=== PATIENT | male | born 1960 | race American Indian/Alaskan Native ===

== ENCOUNTER 2017-01-29 10:38 | Day surgery (SDC) | payer OTHER ==
[2017-01-29 11:03] VITALS: RESP 23
[2017-01-29 11:15] VITALS: BMI 24.9
[2017-01-29] MEDS ORDERED: Indomethacin 50 MG Suppository PR ONE (13:46)
[2017-01-29] MEDS ORDERED: Iohexol 240 (50 ml) ONE (13:47)
[2017-01-29] MEDS ORDERED: Midazolam 2 MG/2 ML VIAL ONE (14:15)
[2017-01-29] MEDS ORDERED: Propofol 10 mg/ml Inj (20 ML) ONE ×2 (14:15→14:44)
[2017-01-29] MEDS ORDERED: Desflurane Inhalation Anesthetic Liq (240 ml) ONE (14:51)
[2017-01-29] MEDS ORDERED: cefTRIAXone (Rocephin) 1 gm Inj ONE (14:53)
[2017-01-29] MEDS ORDERED: Glucagon Recombinant 1 mg Inj ONE (15:11)
[2017-01-29] MEDS ORDERED: Lactated Ringer's 1,000 ML IV SCH (16:00)
[2017-01-29 16:02] VITALS: TEMP 98.4
[2017-01-29 16:52] VITALS: PULSE 66
[2017-01-29 17:07] VITALS: BP 174/90; O2SAT 98
--- NOTE | 2017-01-30 11:15 | RAD ---
PROCEDURE: ERCP. HISTORY: ? CBD OBST COMPARISON: None TECHNIQUE: Standard protocol for this study/examination. FINDINGS: Submitted images from the current procedure: 6.0. IMPRESSION: Total fluoroscopic time (continuous mode) utilized during the procedure: 3 minutes 43 seconds.
== END 2017-01-29 17:46 | disposition home or self-care (01) ==
LOC: ENDO 10:38
PROVIDERS: ATTEND Internal Medicine
DX: K85.91 Acute pancreatitis with uninfected necrosis, unspecified (principal); K83.1 Obstruction of bile duct; K29.50 Unspecified chronic gastritis without bleeding; K29.80 Duodenitis without bleeding
CPT/HCPCS: 43239; 43242; 43274 ×2; 43277; 74330; 88173; 88305; 88342; C1876; C2625 ×2; J0696; J1610; J2250; J2704; J3010; J7040; J7120; Q9966

== ENCOUNTER 2017-03-04 13:18 | Inpatient (IN) | payer BC ==
[2017-03-04 13:27] VITALS: BMI 25.5
[2017-03-04] MEDS ORDERED: Piperacill/Tazo 4.5gm in NS 4.5 GM/100 ML BAG IVPB STA (14:05)
--- NOTE | 2017-03-04 14:05 | ED PDOC ---
Arrival/HPI - General Chief Complaint: Abdominal Pain Time Seen by Provider: 03/04/17 14:02 Historian: Patient - History of Present Illness Narrative History of Present Illness (Text): 03/04/17 13:53 Gato Osborne is a 56 year old male complaining of fevers and generalized weakness for 2-3 days. Patient notes that he also experiences abdominal discomfort and yellowing of his skin beginning this week. Patient denies any other complaint at this time. 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 Time/Duration: < week Symptom Onset: Gradual Symptom Course: Unchanged Activities at Onset: Light Context: Home Past Medical History - Provider Review Nursing Documentation Reviewed: Yes - Cardiac Hx Pacemaker: No - Pulmonary Hx Respiratory Disorders: No - Neurological Hx Paralysis: No - HEENT Hx HEENT Disorder: No - Renal Hx Renal Disorder: No - Endocrine/Metabolic Hx Endocrine Disorders: No - Hematological/Oncological Hx Blood Transfusions: No - Integumentary Hx Dermatological Disorder: No - Musculoskeletal/Rheumatological Hx Musculoskeletal Disorders: No - Genitourinary/Gynecological Hx Genitourinary Disorders: No - Psychiatric Hx Emotional Abuse: No Hx Physical Abuse: No Hx Substance Use: No - Anesthesia Hx Anesthesia Reactions: No Hx Malignant Hyperthermia: No - Suicidal Assessment Feels Threatened In Home Enviroment: No Family/Social History - Physician Review Nursing Documentation Reviewed: Yes Family/Social History: No Known Family HX Smoking Status: Former Smoker Hx Alcohol Use: Yes (STOPPED DRINKING 25 YEARS AGO) Hx Substance Use: No Allergies/Home Meds Allergies/Adverse Reactions: Allergies No Known Allergies Allergy (Verified 03/04/17 13:28) Home Medications: Home Meds Medication Instructions Recorded Confirmed No Known Home Med 01/24/17 01/24/17 Physical Exam - Physical Exam Narrative Physical Exam (Text): - Review of Systems Constitutional: Normal. absent: Fatigue, Weight Change, Fevers Eyes: icteric sclera ENT: Normal Respiratory: Normal absent: SOB, Cough, Sputum Cardiovascular: Normal absent: Chest pain, Palpitations, Syncope Gastrointestinal: Normal absent: Abdominal pain, Diarrhea, Nausea, Vomiting Genitourinary: Normal. absent: Dysuria, Frequency, Hematuria Musculoskeletal: Normal. absent: Arthralgias, Back Pain, Neck Pain Skin: jaundice Neurological: Normal absent: Focal Weakness Endocrine: Normal Hemo/Lymphatic: Normal Psychiatric: Normal - Physical exam Patient appears age appropriate, speaking full sentences without difficulty Patient is febrile. - Systems Exam Head: Present: Atraumatic, Normocephalic Pupils: Present: PERRL Extraocular Muscles: Present: EOMI Conjunctiva: Icteric sclera Mouth: Present: Moist Mucous Membranes Neck: Present: Normal Range of Motion. No: MIDLINE TENDERNESS, Paraspinal Tenderness Respiratory/Chest: Present: Clear to Auscultation, Good Air Exchange. No: Respiratory Distress, Accessory Muscle Use, Tachypnic Cardiovascular: Present: Regular Rate and Rhythm, Normal S1, S2, Peripheral Pulses Present. No: Murmurs Abdomen: Present: Normal Bowel Sounds, No: Tenderness, Peritoneal Signs, Rebound, Guarding, Distention Back: Present: Normal Inspection. No: Midline Tenderness, Paraspinal Tenderness Upper Extremity: Present: Normal Inspection. No: Cyanosis, Edema Lower Extremity: Present: Normal Inspection. No: Edema Neurological: Present: GCS=15, Speech Normal, cranial nerves II through XII fully intact with no cerebellar abnormality, neuro-sensory fully intact. No focal neurological deficits. Skin: Slightly jaundice. No: Rashes Lymphatic: Present: OX3, NI, NC Psychiatric: Present: Alert, Oriented x 3, Normal Insight, Normal Concentration Vital Signs Reviewed: Yes Vital Signs Temp Pulse Resp BP Pulse Ox 03/04/17 15:34 115 H 18 125/78 95 03/04/17 13:19 102.9 F H 128 H 18 121/73 95 Temperature: Febrile Blood Pressure: Normal Pulse: Tachycardic Respiratory Rate: Normal Appearance: Positive for: Well-Appearing, Non-Toxic, Comfortable Pain Distress: None Mental Status: Positive for: Alert and Oriented X 3 Medical Decision Making ED Course and Treatment: 03/04/17 14:21 Impression: 56 year old male complaining of fevers and weakness with associated abdominal discomfort and slight jaundice for 2-3 days. Pt with a hx of pancreatic CA dw Dr. Lu, states pt going for procedure tomorrow and to admit Plan: -- EKG -- Chest X-ray -- VBG, Blood Culture -- Urinalysis, Urine Culture -- Labs -- Motrin, Zosyn, and IV Fluids -- Reassess and disposition Progress Notes: 03/04/17 14:[address] Garcia who states to admit patient to hospitalist service. 03/04/17 15:[address] Putnam, who accepts patient for admission to his service. 03/04/17 15:09 Chest X-ray: Creator : Stan Roberts MD IMPRESSION: No active disease. 03/04/17 16:42 pt in no distress, aware of admission plan denies complaints - Lab Interpretations Lab Results: 03/04/17 14:35 03/04/17 14:35 Lab Results 03/04/17 15:56: Urine Color Dark yellow, Urine Appearance Clear, Urine pH 6.5, Ur Specific [place] <= 1.005, Urine Protein 30 H, Urine Glucose (UA) Negative, Urine Ketones Negative, Urine Blood Small H, Urine Nitrate Negative, Urine Bilirubin Large H, Urine Urobilinogen 0.2, Ur Leukocyte Esterase Negative, Urine RBC Pending, Urine WBC Pending 03/04/17 14:35: Sodium 124 L, Chloride 86 L, Potassium 3.3 L, Carbon Dioxide 29 , Anion Gap 12, BUN 16, Creatinine 0.9, Est GFR ( Amer) > 60, Est GFR ( Non-Af Amer) > 60, Random Glucose 116 H, Calcium 9.0, Phosphorus 1.8 L, Magnesium 2.0, Total Bilirubin 16.1 H, AST 111 H, ALT 105 H, Alkaline Phosphatase 503 H, Total Protein 7.6, Albumin 3.2, Globulin 4.4, Albumin/ Globulin Ratio 0.7 L 03/04/17 14:35: pO2 202 H, VBG pH 7.55 H, VBG pCO2 35.0 L, VBG HCO3 30.6 H, VBG Total CO2 31.7 H, VBG O2 Sat (Calc) 100.8 H, VBG Base Excess 7.9 H, VBG Potassium 3.3 L, Sodium 124.0 L, Chloride 91.0 L, Glucose 118 H, Lactate 1.4, FiO2 21.0, Venous Blood Potassium 3.3 L 03/04/17 14:35: PT 17.1 H, INR 1.58 H, APTT 43.5 H 03/04/17 14:35: WBC 22.7 H, RBC 3.85, Hgb 11.4 L, Hct 31.6 L, MCV 82.1, MCH 29.6 , MCHC 36.1, RDW 14.4, Plt Count 336, MPV 10.4, Gran % 88.8 H, Lymph % (Auto) 4.6 L, [place] % (Auto) 6.6 H, Eos % (Auto) 0.0 L, Baso % (Auto) 0.0, Gran # 20.16 H, Lymph # 1.0 L, [place] # 1.5 H, Eos # 0.0, Baso # 0.01 I have reviewed the lab results: Yes - RAD Interpretation Radiology Orders: 03/04/17 14:05 CHEST PORTABLE [RAD] Stat 03/04/17 14:36 PANCREATIC PROTOCOL [CT] Routine 03/05/17 07:00 CHEST W/CONTRAST [CT] Routine - Medication Orders Current Medication Orders: Enoxaparin Sodium (Lovenox) 40 mg SC DAILY [facility]ENNY PRN Reason: Protocol Piperacillin Sod/Tazobactam Sod (Zosyn 3.375 In Ns 100ml) 100 mls @ 200 mls/hr IVPB Q6 [facility]NY PRN Reason: Protocol Stop: 03/05/17 00:29 Sodium Chloride (Sodium Chloride 0.9%) 1,000 mls @ 125 mls/hr IV .Q8H [facility]ENNY Potassium Phosphate 15 mmole/ (Sodium Chloride) 255 mls @ 42.5 mls/hr IVPB ONCE ONE Stop: 03/04/17 22:11 Ibuprofen (Motrin Tab) 600 mg PO Q6 PRN PRN Reason: Pain, moderate (4-7) Pantoprazole Sodium (Protonix Inj) 40 mg IVP DAILY [facility] Phytonadione (Vitamin K Tab) 5 mg PO DAILY [facility] Last Admin: 03/04/17 16:19 Dose: 5 mg Discontinued Medications Sodium Chloride 2,500 ml/ IV (SUPPLIES) 2,500 mls @ 4,708.26 mls/hr IV ONCE ONE PRN Reason: 60 ML/KG/HR Stop: 03/04/17 14:06 Last Admin: 03/04/17 14:38 Dose: 4,708.26 mls/hr Piperacillin Sod/Tazobactam Sod (Zosyn 4.5 Gm In Ns 100ml) 4.5 gm in 100 mls @ 200 mls/hr IVPB STAT STA PRN Reason: Protocol Stop: 03/04/17 14:34 Last Admin: 03/04/17 14:48 Dose: 200 mls/hr Ibuprofen (Motrin Tab) 600 mg PO STAT STA Stop: 03/04/17 14:09 Last Admin: 03/04/17 16:19 Dose: 600 mg Iohexol (Omnipaque 350 150 Ml) Confirm Administered Dose 150 ml .ROUTE .STK-MED ONE Stop: 03/04/17 14:45 Iohexol (Omnipaque 240 (50 Ml)) Confirm Administered Dose 50 ml .ROUTE .STK-MED ONE Stop: 03/04/17 14:49 Potassium Chloride (K-Dur 20 Meq Er Tab) 20 meq PO STAT STA Stop: 03/04/17 16:15 - Scribe Statement The provider has reviewed the documentation as recorded by the Rosa Monet Provider Scribe Attestation: All medical record entries made by the Rosa were at my direction and personally dictated by me. I have reviewed the chart and agree that the record accurately reflects my personal performance of the history, physical exam, medical decision making, and the department course for this patient. I have also personally directed, reviewed, and agree with the discharge instructions and disposition. Disposition/Present on Arrival - Present on Arrival Any Indicators Present on Arrival: No History of DVT/PE: No History of Uncontrolled Diabetes: No Urinary Catheter: No History of Decub. Ulcer: No History Surgical Site Infection Following: None - Disposition Have Diagnosis and Disposition been Completed?: Yes Diagnosis: Leucocytosis, Jaundice Disposition: HOSPITALIZED Disposition Time: 16:49 Patient Plan: Admission Condition: FAIR
[2017-03-04 14:47] LABS: ADD MANUAL DIFF? NO
[2017-03-04] MEDS ORDERED: Iohexol 240 (50 ml) ONE (14:48)
[2017-03-04 14:52] LABS: BASO # 0.01 K/mm3 (0.0-2.0); GRAN # 20.16 (1.4-6.5); GRAN % 88.8 % (50.0-68.0); HEMATOCRIT 31.6 % (42.0-52.0); LYMPH % 4.6 % (22.0-35.0); MEAN CELL VOLUME 82.1 fL (80.0-105.0); MEAN CORPUSCULAR HEMOGLOBIN 29.6 pg (25.0-35.0); MEAN CORPUSCULAR HGB CONC 36.1 g/dl (31.0-37.0); MEAN PLATELET VOLUME 10.4 fl (7.0-11.0); MONO # 1.5 (0.1-0.6); MONO % 6.6 % (1.0-6.0); PLATELET COUNT 336 10^3/uL (120.0-450.0); RED CELL DISTRIBUTION WIDTH 14.4 % (11.5-14.5); WHITE BLOOD COUNT 22.7 10^3/ul (4.5-11.0)
[2017-03-04 14:54] LABS: VENOUS BLOOD GAS BASE EXCESS 7.9 mmol/L (0.0-2.0); VENOUS BLOOD PH 7.55 (7.32-7.43)
[2017-03-04 15:01] LABS: ALB/GLOB RATIO 0.7 (1.1-1.8); ALKALINE PHOSPHATASE 503 U/L (38-133); ALT/SGPT 105 U/L (7-56); AST/SGOT 111 U/L (15-59); BILIRUBIN,TOTAL 16.1 mg/dL (0.2-1.3); BLOOD UREA NITROGEN 16 mg/dL (7-21); CARBON DIOXIDE 29 mmol/L (21-33); CHLORIDE 86 mmol/L (98-107); GFR AFRICAN-AMERICAN > 60; GLUCOSE,RANDOM 116 mg/dL (70-110); PHOSPHOROUS 1.8 mg/dL (2.5-4.5); POTASSIUM 3.3 mmol/L (3.6-5.0); SODIUM 124 mmol/L (132-148); TOTAL PROTEIN 7.6 g/dL (5.8-8.3)
--- NOTE | 2017-03-04 15:01 | RAD ---
HISTORY: Sepsis Patient COMPARISON: No prior. FINDINGS: LUNGS: No active pulmonary disease. PLEURA: No significant pleural effusion identified, no pneumothorax apparent. CARDIOVASCULAR: Normal. OSSEOUS STRUCTURES: No significant abnormalities. VISUALIZED UPPER ABDOMEN: Normal. OTHER FINDINGS: None. IMPRESSION: No active disease.
[2017-03-04 15:02] LABS: INR 1.58 (0.93-1.08); PARTIAL THROMBOPLASTIN TIME 43.5 Seconds (23.7-30.8)
[2017-03-04] MEDS ORDERED: Potassium Phosphate 15 MMOLE in Sodium Chloride 0.9% 250 ML IVPB ONE (16:12)
[2017-03-04] MEDS ORDERED: Potassium Chloride 20 mEq ER Tab PO STA (16:14)
[2017-03-04 16:23] LABS: PH,URINE 6.5 (4.7-8.0); URINE APPEARANCE CLEAR (CLEAR); URINE BILIRUBIN LARGE (NEGATIVE); URINE BLOOD SMALL (NEGATIVE); URINE GLUCOSE (UA) NEGATIVE (NEGATIVE); URINE KETONE NEGATIVE (NEGATIVE); URINE LEUKOCYTE ESTERASE NEGATIVE Leu/uL (NEGATIVE); URINE PROTEIN 30 mg/dL (<30 mg/dL); URINE UROBILINOGEN 0.2 E.U./dL (<1 E.U./dL)
[2017-03-04 16:24] LABS: URINE COLOR DARK YELLOW (YELLOW)
--- NOTE | 2017-03-04 16:24 | CP.PCM.HP ---
<Madhu Peng - Last Filed: 03/04/17 18:24> History of Present Illness - History of Present Illness History of Present Illness: 56M presents to the ED after abnormal laboratory results and complaints of jaundice. Patient has a known history of pancreatic adenocarcinoma. The patient had outpatient work up on 03/03/17 which demonstrated leukocytosis (20K), hyperbilirubinemia of 14.9. Patient was referred to hospital ED for further evaluation. Patient denies any significant PMHx prior to being diagnosed w/ pancreatic CA. Patient was found to have a cystic lesion in the head of the pancreas. An EUS and FNA were done on the lesion. Patient was diagnosed with pancreatic adenocarcinoma. During the admission in January patient had an ERCP w / biliary stent placement. Patient reports his symptoms improved after having the ERCP . However, about two weeks ago patient reported eating steak which made him nauseous and he had a bout of emesis. As per patient, ever since then he has experienced abdominal pain and worsening jaundice. At time of examination patient reports feeling chills at home. Denies headaches, cough, n/ v, dysuria. Reports abdominal discomfort. PMHx: Pancreatic adenocarcinoma PSHx: none FHx: Father - colon CA Social: Quit smoking 3 months ago, ~20 pack years; denies EtOH or illicit drug use Present on Admission - Present on Admission Any Indicators Present on Admission: No Review of Systems - Review of Systems Review of Systems: 12 pt ROS carried out, unremarkable; except as stated in HPI Past Patient History - Past Medical History & Family History Past Medical History?: No - Past Social History Smoking Status: Former Smoker - CARDIAC Hx Pacemaker: No - PULMONARY Hx Respiratory Disorders: No - NEUROLOGICAL Hx Paralysis: No - HEENT Hx HEENT Problems: No - RENAL Hx Chronic Kidney Disease: No - ENDOCRINE/METABOLIC Hx Endocrine Disorders: No - HEMATOLOGICAL/ONCOLOGICAL Hx Blood Transfusions: No - INTEGUMENTARY Hx Dermatological Problems: No - MUSCULOSKELETAL/RHEUMATOLOGICAL Hx Musculoskeletal Disorders: No - GENITOURINARY/GYNECOLOGICAL Hx Genitourinary Disorders: No - PSYCHIATRIC Hx Emotional Abuse: No Hx Physical Abuse: No Hx Substance Use: No - SURGICAL HISTORY Hx Surgeries: No - ANESTHESIA Hx Anesthesia Reactions: No Hx Malignant Hyperthermia: No Meds Allergies/Adverse Reactions: Allergies Allergy/AdvReac Type Severity Reaction Status Date / Time No Known Allergies Allergy Verified 03/04/17 13:28 Physical Exam - Constitutional Appears: No Acute Distress - Head Exam Head Exam: NORMOCEPHALIC - Eye Exam Eye Exam: Scleral icterus - ENT Exam Additional comments: mucous membranes: jaundiced - Respiratory Exam Respiratory Exam: NORMAL BREATHING PATTERN - Cardiovascular Exam Cardiovascular Exam: Tachycardia, +S1, +S2 - GI/Abdominal Exam GI & Abdominal Exam: Soft. absent: Distended, Guarding, Tenderness - Extremities Exam Extremities exam: Negative for: calf tenderness, pedal edema - Neurological Exam Neurological exam: Alert, Oriented x3 - Psychiatric Exam Psychiatric exam: Normal Mood - Skin Skin Exam: Dry, Intact, Warm Results - Vital Signs Recent Vital Signs: Last Vital Signs Temp 102.9 F H 03/04/17 13:19 Pulse 115 H 03/04/17 15:34 Resp 18 03/04/17 15:34 BP 125/78 03/04/17 15:34 Pulse Ox 95 03/04/17 15:34 - Labs Result Diagrams: 03/04/17 14:35 03/04/17 14:35 Labs: Laboratory Results - last 24 hr 03/04/17 03/04/17 03/04/17 14:35 14:35 14:35 WBC 22.7 H RBC 3.85 Hgb 11.4 L Hct 31.6 L MCV 82.1 MCH 29.6 MCHC 36.1 RDW 14.4 Plt Count 336 MPV 10.4 Gran % 88.8 H Lymph % (Auto) 4.6 L [place] % (Auto) 6.6 H Eos % (Auto) 0.0 L Baso % (Auto) 0.0 Gran # 20.16 H Lymph # 1.0 L [place] # 1.5 H Eos # 0.0 Baso # 0.01 PT 17.1 H INR 1.58 H APTT 43.5 H pO2 202 H VBG pH 7.55 H VBG pCO2 35.0 L VBG HCO3 30.6 H VBG Total CO2 31.7 H VBG O2 Sat (Calc) 100.8 H VBG Base Excess 7.9 H VBG Potassium 3.3 L Sodium 124.0 L Chloride 91.0 L Glucose 118 H Lactate 1.4 FiO2 21.0 Potassium Carbon Dioxide Anion Gap BUN Creatinine Est GFR ( Amer) Est GFR (Non-Af Amer) Random Glucose Calcium Phosphorus Magnesium Total Bilirubin AST ALT Alkaline Phosphatase Total Protein Albumin Globulin Albumin/Globulin Ratio Venous Blood Potassium 3.3 L 03/04/17 14:35 WBC RBC Hgb Hct MCV MCH MCHC RDW Plt Count MPV Gran % Lymph % (Auto) [place] % (Auto) Eos % (Auto) Baso % (Auto) Gran # Lymph # [place] # Eos # Baso # PT INR APTT pO2 VBG pH VBG pCO2 VBG HCO3 VBG Total CO2 VBG O2 Sat (Calc) VBG Base Excess VBG Potassium Sodium 124 L Chloride 86 L Glucose Lactate FiO2 Potassium 3.3 L Carbon Dioxide 29 Anion Gap 12 BUN 16 Creatinine 0.9 Est GFR ( Amer) > 60 Est GFR (Non-Af Amer) > 60 Random Glucose 116 H Calcium 9.0 Phosphorus 1.8 L Magnesium 2.0 Total Bilirubin 16.1 H AST 111 H ALT 105 H Alkaline Phosphatase 503 H Total Protein 7.6 Albumin 3.2 Globulin 4.4 Albumin/Globulin Ratio 0.7 L Venous Blood Potassium Assessment & Plan - Assessment and Plan (Free Text) Assessment: 56 M with h/o pancreatitis, pancreatic adenoCA s/p ERCP with stent placement admitted with fever, chills, weakness, & recurrent jaundice Plan: Obstructive Jaundrice, suspect acute cholangitis -IV Zosyn Q6H -NPO after midnight -GI consult, recs appreciated -ERCP planned for tomorrow AM -F/u pancreatic protocol CT -F/u Blood cultures -F/u Urine cx -F/u AM labs, CBC & CMP Pancreatic CA -Biopsy: AdenoCA -CT Chest w/ contrast; CA staging -Heme/Onc Consulted; recs appreciated Hyponatremia -F/u UA, urine osmolality, urine sodium -NS @ 125mls/hr -F/u TSH Hypokalemia -Replete prn -Kdur 20meq hypophosphatemia - KPhos 15mmol -replete prn -F/u Mg in AM Elevated INR -Vit K DVT ppx/ GI ppx -Lovenox -Protonix Assessment and Plan discussed w/ attending <Deisi BARRON,Sheila - Last Filed: 03/05/17 08:04> Results - Vital Signs Recent Vital Signs: Last Vital Signs Temp 98.2 F 03/05/17 05:38 Pulse 78 03/05/17 05:38 Resp 20 03/05/17 05:38 BP 103/69 05/17/17 05:38 Pulse Ox 98 03/05/17 05:38 - Labs Result Diagrams: 03/04/17 14:35 03/04/17 14:35 Labs: Laboratory Results - last 24 hr 03/04/17 03/04/17 03/04/17 15:56 17:30 17:30 PT INR Magnesium Lipase 717 H TSH 3rd Generation 0.11 L Urine Color Dark yellow Urine Appearance Clear Urine pH 6.5 Ur Specific [place] <= 1.005 Urine Protein 30 H Urine Glucose (UA) Negative Urine Ketones Negative Urine Blood Small H Urine Nitrate Negative Urine Bilirubin Large H Urine Urobilinogen 0.2 Ur Leukocyte Esterase Negative Urine RBC 0 - 2 Urine WBC Negative Ur Epithelial Cells 0 - 2 Urine Bacteria Neg Urine Osmolality Ur Random Sodium Ur Random Potassium 03/04/17 03/04/17 03/05/17 17:40 18:30 05:15 PT INR Magnesium Lipase TSH 3rd Generation 0.12 L Urine Color Urine Appearance Urine pH Ur Specific [place] Urine Protein Urine Glucose (UA) Urine Ketones Urine Blood Urine Nitrate Urine Bilirubin Urine Urobilinogen Ur Leukocyte Esterase Urine RBC Urine WBC Ur Epithelial Cells Urine Bacteria Urine Osmolality 190 Ur Random Sodium 30 Ur Random Potassium 5.6 03/05/17 03/05/17 05:15 05:15 PT 16.1 H INR 1.49 H Magnesium 2.5 H Lipase TSH 3rd Generation Urine Color Urine Appearance Urine pH Ur Specific [place] Urine Protein Urine Glucose (UA) Urine Ketones Urine Blood Urine Nitrate Urine Bilirubin Urine Urobilinogen Ur Leukocyte Esterase Urine RBC Urine WBC Ur Epithelial Cells Urine Bacteria Urine Osmolality Ur Random Sodium Ur Random Potassium Attending/Attestation - Attestation I have personally seen and examined this patient.: Yes I have fully participated in the care of the patient.: Yes I have reviewed all pertinent clinical information: Yes Notes (Text): 03/05/17 07:58 Patient was seen and examined with medical research scientist .Agreed with resident assessment and plan. 56 yrs old male with PMH of Pancreatic Adenocarcinoma, SP Pancreatic and billiary stent 02/03 is admitted with obstructive Jaundice, leukocytosis , hyponatremia and hypophosphatemia. Agreed with IV antibiotics for possible cholangitis, will follow up cultutres.Patient is scheduled for ERCP and possible placement of pancreatic stent on 03/05/17 by GI. Hyponatremia is likely due to decrease oral intake, we will get UA/Urine electrolyte and urine osmolality.We will hydrate patient and follow up electrolyte. Hypokalemia and hypophosphatemia, electrolyte are replaced, we will follow up LABS. Management plan was discussed in detail with patient Education was provided.
--- NOTE | 2017-03-04 16:32 | CP.PCM.CON ---
<Everette Lu - Last Filed: 03/04/17 17:00> History of Present Illness - History of Present Illness History of Present Illness: PGY4 GI Fellow Consult Note Patient is a 56yo male with known history of pancreatic adenocarcinoma who presented to the ED for abnormal lab work and abdominal pain. The patient had outpatient work up with CBC, CMP which revealed a profound leukocytosis of 20K and hyperbilirubinemia (14.9) and was referred to the ED for further evaluation. He was recently hospitalized in January when he was found to have a pancreatic head cystic lesion and diagnosed with pancreatic adenocarcinoma on EUS/FNA. He underwent ERCP at that time and had dilation fo a CBD stricture along with placement of pancreatic and biliary stents. The patient stated that his symptoms improved following ERCP and he noted more clear urine, improvement in jaundice and decreased abdominal pain. Two weeks ago he ate a meal that did not agree with him, became nauseated and vomited. Since then he has had worsening intermittent abdominal pain and jaundice. In the past week he had developed chills but did not take his temperature at home. Once his lab work was noted to be abnormal he was directed to the ED for further evaluation. PMHx: Pancreatic adenocarcinoma PSHx: Denies FHx: Father - colon cancer in his 70s Social: Quit smoking <1yr ago, ~15 pack years; denies EtOH or illicit drug use Endo: 01/2017 - EUS/ERCP Review of Systems - Constitutional Constitutional: Chills, Malaise. absent: Anorexia, Fever - EENT Eyes: absent: Change in Vision Nose/Mouth/Throat: absent: Sore Throat - Cardiovascular Cardiovascular: absent: Chest Pain, Dyspnea, Edema - Respiratory Respiratory: absent: Cough, Dyspnea, Excessive Mucous Production - Gastrointestinal Gastrointestinal: Abdominal Pain. absent: Belching, Bloating, Constipation, Cramping, Diarrhea, Dyspepsia, Heartburn, Hematemesis, Hematochezia, Loose Stools, Melena, Nausea, Odynophagia, Vomiting - Genitourinary Genitourinary: Other (change in color). absent: Dysuria, Urinary Frequency, Urinary Urgency - Musculoskeletal Musculoskeletal: Muscle Cramps. absent: Back Pain - Integumentary Integumentary: Jaundice. absent: New Lesions, Pruritus, Rash - Neurological Neurological: absent: Dizziness, Numbness, Focal Weakness - Psychiatric Psychiatric: absent: Anxiety, Depression - Endocrine Endocrine: absent: Polydipsia, Polyphagia, Polyuria - Hematologic/Lymphatic Hematologic: absent: Easy Bleeding, Easy Bruising, Lymphadenopathy Past Patient History - Past Medical History & Family History Past Medical History?: No - Past Social History Smoking Status: Former Smoker - CARDIAC Hx Pacemaker: No - PULMONARY Hx Respiratory Disorders: No - NEUROLOGICAL Hx Paralysis: No - HEENT Hx HEENT Problems: No - RENAL Hx Chronic Kidney Disease: No - ENDOCRINE/METABOLIC Hx Endocrine Disorders: No - HEMATOLOGICAL/ONCOLOGICAL Hx Blood Transfusions: No - INTEGUMENTARY Hx Dermatological Problems: No - MUSCULOSKELETAL/RHEUMATOLOGICAL Hx Musculoskeletal Disorders: No - GENITOURINARY/GYNECOLOGICAL Hx Genitourinary Disorders: No - PSYCHIATRIC Hx Emotional Abuse: No Hx Physical Abuse: No Hx Substance Use: No - SURGICAL HISTORY Hx Surgeries: No - ANESTHESIA Hx Anesthesia Reactions: No Hx Malignant Hyperthermia: No Meds Allergies/Adverse Reactions: Allergies Allergy/AdvReac Type Severity Reaction Status Date / Time No Known Allergies Allergy Verified 03/04/17 13:28 - Medications Medications: Current Medications Enoxaparin Sodium (Lovenox) 40 mg SC DAILY [facility] PRN Reason: Protocol Piperacillin Sod/Tazobactam Sod (Zosyn 3.375 In Ns 100ml) 100 mls @ 200 mls/hr IVPB Q6 [facility] PRN Reason: Protocol Stop: 03/05/17 00:29 Sodium Chloride (Sodium Chloride 0.9%) 1,000 mls @ 125 mls/hr IV .Q8H [facility] Potassium Phosphate 15 mmole/ (Sodium Chloride) 255 mls @ 42.5 mls/hr IVPB ONCE ONE Stop: 03/04/17 22:11 Ibuprofen (Motrin Tab) 600 mg PO Q6 PRN PRN Reason: Pain, moderate (4-7) Pantoprazole Sodium (Protonix Inj) 40 mg IVP DAILY [facility] Phytonadione (Vitamin K Tab) 5 mg PO DAILY [facility] Last Admin: 03/04/17 16:19 Dose: 5 mg Physical Exam - Constitutional Appears: No Acute Distress - Eye Exam Eye Exam: EOMI, PERRL, Scleral icterus - ENT Exam ENT Exam: Mucous Membranes Moist - Respiratory Exam Respiratory Exam: Clear to Auscultation Bilateral. absent: Rales, Rhonchi, Wheezes - Cardiovascular Exam Cardiovascular Exam: Tachycardia, REGULAR RHYTHM, +S1, +S2 - GI/Abdominal Exam GI & Abdominal Exam: Normal Bowel Sounds, Soft. absent: Distended, Firm, Guarding, Organomegaly, Rigid, Tenderness - Extremities Exam Extremities exam: Positive for: normal inspection. Negative for: pedal edema - Neurological Exam Neurological exam: Alert, Oriented x3 - Psychiatric Exam Psychiatric exam: Normal Affect, Normal Mood - Skin Skin Exam: Dry, Warm Additional comments: jaundice Results - Vital Signs Recent Vital Signs: Last Vital Signs Temp 102.9 F H 03/04/17 13:19 Pulse 115 H 03/04/17 15:34 Resp 18 03/04/17 15:34 BP 125/78 03/04/17 15:34 Pulse Ox 95 03/04/17 15:34 - Labs Result Diagrams: 03/04/17 14:35 03/04/17 14:35 Labs: Laboratory Results - last 24 hr 03/04/17 03/04/17 03/04/17 14:35 14:35 14:35 WBC 22.7 H RBC 3.85 Hgb 11.4 L Hct 31.6 L MCV 82.1 MCH 29.6 MCHC 36.1 RDW 14.4 Plt Count 336 MPV 10.4 Gran % 88.8 H Lymph % (Auto) 4.6 L [place] % (Auto) 6.6 H Eos % (Auto) 0.0 L Baso % (Auto) 0.0 Gran # 20.16 H Lymph # 1.0 L [place] # 1.5 H Eos # 0.0 Baso # 0.01 PT 17.1 H INR 1.58 H APTT 43.5 H pO2 202 H VBG pH 7.55 H VBG pCO2 35.0 L VBG HCO3 30.6 H VBG Total CO2 31.7 H VBG O2 Sat (Calc) 100.8 H VBG Base Excess 7.9 H VBG Potassium 3.3 L Sodium 124.0 L Chloride 91.0 L Glucose 118 H Lactate 1.4 FiO2 21.0 Potassium Carbon Dioxide Anion Gap BUN Creatinine Est GFR ( Amer) Est GFR (Non-Af Amer) Random Glucose Calcium Phosphorus Magnesium Total Bilirubin AST ALT Alkaline Phosphatase Total Protein Albumin Globulin Albumin/Globulin Ratio Venous Blood Potassium 3.3 L Urine Color Urine Appearance Urine pH Ur Specific [place] Urine Protein Urine Glucose (UA) Urine Ketones Urine Blood Urine Nitrate Urine Bilirubin Urine Urobilinogen Ur Leukocyte Esterase 03/04/17 03/04/17 14:35 15:56 WBC RBC Hgb Hct MCV MCH MCHC RDW Plt Count MPV Gran % Lymph % (Auto) [place] % (Auto) Eos % (Auto) Baso % (Auto) Gran # Lymph # [place] # Eos # Baso # PT INR APTT pO2 VBG pH VBG pCO2 VBG HCO3 VBG Total CO2 VBG O2 Sat (Calc) VBG Base Excess VBG Potassium Sodium 124 L Chloride 86 L Glucose Lactate FiO2 Potassium 3.3 L Carbon Dioxide 29 Anion Gap 12 BUN 16 Creatinine 0.9 Est GFR ( Amer) > 60 Est GFR (Non-Af Amer) > 60 Random Glucose 116 H Calcium 9.0 Phosphorus 1.8 L Magnesium 2.0 Total Bilirubin 16.1 H AST 111 H ALT 105 H Alkaline Phosphatase 503 H Total Protein 7.6 Albumin 3.2 Globulin 4.4 Albumin/Globulin Ratio 0.7 L Venous Blood Potassium Urine Color Dark yellow Urine Appearance Clear Urine pH 6.5 Ur Specific [place] <= 1.005 Urine Protein 30 H Urine Glucose (UA) Negative Urine Ketones Negative Urine Blood Small H Urine Nitrate Negative Urine Bilirubin Large H Urine Urobilinogen 0.2 Ur Leukocyte Esterase Negative Assessment & Plan - Assessment and Plan (Free Text) Assessment: Patient is a 56yo male with known history of pancreatic adenocarcinoma who presented to the ED for abnormal lab work and abdominal pain. -Sepsis, suspect acute cholangitis -Pancreatic adenocarcinoma -Obstructive jaundice and hyperbilirubinemia 2/2 above -Transaminasemia 2/2 above -Coagulopathy -Hyponatremia/hypokalemia Plan: -Start zosyn IV Q6H as ordered -IVF NS@125cc/hr as ordered -Pancreatic protocol CT ordered, pending - new liver lesions vs abscess formation - awaiting final read -Vit K administered given elevated INR -Replete electrolytes as needed -NPO past MN, plan for ERCP tomorrow - Date & Time Date: 03/04/17 Time: 15:30 <Ramy Sequeira - Last Filed: 03/04/17 17:15> Meds - Medications Medications: Current Medications Enoxaparin Sodium (Lovenox) 40 mg SC DAILY [facility] PRN Reason: Protocol Last Admin: 03/04/17 17:03 Dose: 40 mg Piperacillin Sod/Tazobactam Sod (Zosyn 3.375 In Ns 100ml) 100 mls @ 200 mls/hr IVPB Q6 [facility] PRN Reason: Protocol Stop: 03/05/17 00:29 Sodium Chloride (Sodium Chloride 0.9%) 1,000 mls @ 125 mls/hr IV .Q8H [facility] Last Admin: 03/04/17 17:05 Dose: 125 mls/hr Potassium Phosphate 15 mmole/ (Sodium Chloride) 255 mls @ 42.5 mls/hr IVPB ONCE ONE Stop: 03/04/17 22:11 Last Admin: 03/04/17 17:05 Dose: 42.5 mls/hr Pantoprazole Sodium (Protonix Inj) 40 mg IVP DAILY [facility] Last Admin: 03/04/17 17:03 Dose: 40 mg Phytonadione (Vitamin K Tab) 5 mg PO DAILY [facility] Last Admin: 03/04/17 16:19 Dose: 5 mg Results - Vital Signs Recent Vital Signs: Last Vital Signs Temp 102.9 F H 03/04/17 13:19 Pulse 109 H 03/04/17 16:55 Resp 18 03/04/17 16:55 BP 121/71 03/04/17 16:55 Pulse Ox 95 03/04/17 16:55 - Labs Result Diagrams: 03/04/17 14:35 03/04/17 14:35 Labs: Laboratory Results - last 24 hr 03/04/17 15:56 Urine Color Dark yellow Urine Appearance Clear Urine pH 6.5 Ur Specific [place] <= 1.005 Urine Protein 30 H Urine Glucose (UA) Negative Urine Ketones Negative Urine Blood Small H Urine Nitrate Negative Urine Bilirubin Large H Urine Urobilinogen 0.2 Ur Leukocyte Esterase Negative Attending/Attestation - Attestation I have personally seen and examined this patient.: Yes I have fully participated in the care of the patient.: Yes I have reviewed all pertinent clinical information: Yes Notes (Text): 03/04/17 17:14 56 year old male with h/o acute pancreatitis, pancreatic adenocarcinoma s/p ERCP with plastic stent placement admitted with fever, chills, weakness, recurrent jaundice c/w cholangitis/sepsis. 1. Cholangitis 2. Pancreatic adenocarcinoma Plan: -sepsis protocol/resuscitation per ER -recommend IV zosyn -NPO after MN for ERCP with stent change tomorrow -CT pancreas procotol to reassess state of pancreatitis/stent position -blood cultures x 2
[2017-03-04] MEDS: Enoxaparin 40 mg Syringe SC SCH (17:03)
[2017-03-04] MEDS: Sodium Chloride 0.9% 1,000 ML IV SCH (17:05)
[2017-03-04 17:31] LABS: URINE RBC 0 - 2 /hpf (0-2); URINE WBC NEGATIVE /hpf (0-6)
[2017-03-04 17:32] LABS: URINE BACTERIA NEG (NEG); URINE EPITHELIAL CELLS 0 - 2 /hpf (0-5)
[2017-03-04] MEDS ORDERED: Pneumococcal 23-Valent Vaccine IM ONE (20:22)
[2017-03-04] MEDS: Piperacillin/Tazobact 3.375 gm 100 ML IVPB SCH (22:00)
--- NOTE | 2017-03-04 22:28 | CARD ---
APPROVED REPORT EKG Measurement Heart [id number] <Conclusion> Sinus tachycardia Possible Left atrial enlargement Borderline ECG
[2017-03-05] MEDS: Sodium Chloride 0.9% 1,000 ML IV SCH ×4 (02:28→21:15)
[2017-03-05] MEDS: Piperacillin/Tazobact 3.375 gm 100 ML IVPB SCH (02:28)
[2017-03-05 06:39] LABS: INR 1.49 (0.93-1.08)
[2017-03-05 07:33] LABS: ADD MANUAL DIFF? NO
[2017-03-05 07:57] LABS: BASO # 0.02 K/mm3 (0.0-2.0); BASO % 0.1 % (0.0-3.0); EOS % 0.1 % (1.5-5.0); GRAN # 14.49 (1.4-6.5); GRAN % 70.4 % (50.0-68.0); HEMATOCRIT 29.9 % (42.0-52.0); LYMPH # 2.7 (1.2-3.4); LYMPH % 13.3 % (22.0-35.0); MEAN CELL VOLUME 83.1 fL (80.0-105.0); MEAN CORPUSCULAR HEMOGLOBIN 28.9 pg (25.0-35.0); MEAN CORPUSCULAR HGB CONC 34.8 g/dl (31.0-37.0); MEAN PLATELET VOLUME 10.8 fl (7.0-11.0); MONO # 3.3 (0.1-0.6); MONO % 16.1 % (1.0-6.0); PLATELET COUNT 369 10^3/uL (120.0-450.0); RED CELL DISTRIBUTION WIDTH 14.8 % (11.5-14.5); WHITE BLOOD COUNT 20.6 10^3/ul (4.5-11.0)
[2017-03-05] MEDS ORDERED: Iohexol 350 MG/100 ML VIAL ONE (08:05)
[2017-03-05 08:16] LABS: T4 9.1 ug/dL (5.5-11.0)
[2017-03-05 08:17] LABS: ALB/GLOB RATIO 0.7 (1.1-1.8); ALKALINE PHOSPHATASE 378 U/L (38-133); ALT/SGPT 83 U/L (7-56); AST/SGOT 82 U/L (15-59); BILIRUBIN,TOTAL 13.5 mg/dL (0.2-1.3); BLOOD UREA NITROGEN 15 mg/dL (7-21); CALCIUM 8.1 mg/dL (8.4-10.5); CARBON DIOXIDE 28 mmol/L (21-33); CHLORIDE 99 mmol/L (98-107); GFR AFRICAN-AMERICAN > 60; GLUCOSE,RANDOM 93 mg/dL (70-110); POTASSIUM 3.5 mmol/L (3.6-5.0); SODIUM 135 mmol/L (132-148); TOTAL PROTEIN 6.6 g/dL (5.8-8.3)
[2017-03-05 08:29] LABS: T3 0.68 ng/mL (0.97-1.69)
[2017-03-05] MEDS: Enoxaparin 40 mg Syringe SC SCH (10:17)
[2017-03-05] MEDS: HYDROmorphone 0.5 mg/0.5 ml ISec IVP PRN (10:39)
[2017-03-05] MEDS ORDERED: Potassium Chloride 20 mEq ER Tab PO ONE (11:27)
[2017-03-05] MEDS ORDERED: Indomethacin 50 MG Suppository PR ONE (11:32)
[2017-03-05] MEDS ORDERED: Iohexol 240 (50 ml) ONE (11:33)
[2017-03-05] MEDS ORDERED: Glucagon Recombinant 1 mg Inj ONE (11:34)
[2017-03-05] MEDS: Piperacill/Tazo 4.5gm in NS 4.5 GM/100 ML BAG IVPB SCH ×2 (12:21→18:05)
[2017-03-05] MEDS ORDERED: Midazolam 2 MG/2 ML VIAL ONE (13:03)
[2017-03-05] MEDS ORDERED: Propofol 10 mg/ml Inj (20 ML) ONE (13:03)
--- NOTE | 2017-03-05 13:20 | CT ---
PROCEDURE: CT Chest with contrast HISTORY: CA staging COMPARISON: March 05, 2017. CT abdomen. TECHNIQUE: Contiguous axial images were obtained through the chest with intravenous contrast enhancement. Sagittal and coronal reconstructions were performed. IV contrast: 100 cc Omnipaque 350 Radiation dose (DLP): 361.31 mGy-cm. This CT exam was performed using one or more of the following dose reduction techniques: Automated exposure control, adjustment of the mA and/or kV according to patient size, and/or use of iterative reconstruction technique. FINDINGS: LUNGS: Platelike atelectasis at the lung bases. No suspicious pulmonary nodules, masses or infiltrates. MEDIASTINUM: Unremarkable thoracic aorta. No aneurysm or dissection. Normal sized heart. Main pulmonary artery unremarkable. No vascular congestion. No lymphadenopathy. PLEURA: No pleural fluid. No pneumothorax. BONES: No fracture. No destructive lesion. UPPER ABDOMEN: Incompletely visualize findings in the liver including bile duct dilatation and hepatic metastatic disease. TheGrossly unremarkable. OTHER FINDINGS: None. IMPRESSION: No measurable disease above the diaphragms.
[2017-03-05] MEDS ORDERED: Desflurane Inhalation Anesthetic Liq (240 ml) ONE (13:36)
[2017-03-05] MEDS ORDERED: Succinylcholine 200 mg/10 ml Inj IV ONE (13:36)
[2017-03-05] MEDS ORDERED: Rocuronium 10 mg/ml (5 ml) ONE (13:36)
--- NOTE | 2017-03-05 13:59 | CT ---
PROCEDURE: CT Abdomen and Pelvis with and without intravenous contrast HISTORY: jaundice, abdominal pain; h/o panc adenoca. COMPARISON: None. TECHNIQUE: Axial images of the abdomen were obtained in the pre contrast, portal venous and delayed phases of enhancement. Coronal and sagittal reformats were generated. Contrast dose: 150 cc of Omni 350 Radiation dose: Total exam DLP = 1181 mGy-cm. This CT exam was performed using one or more of the following dose reduction techniques: Automated exposure control, adjustment of the mA and/or kV according to patient size, and/or use of iterative reconstruction technique. FINDINGS: LOWER THORAX: Unremarkable. LIVER: Multiple metastatic lesions are seen ranging in size from 5-17 mm. There is severe dilatation of the biliary ducts. The common duct is 18 mm in diameter. There is a small caliber biliary stent in place which is probably obstructed. GALLBLADDER AND BILE DUCTS: Unremarkable. PANCREAS: There is a 2.5 x 3.2 cm mass in the head of the pancreas. There is dilatation of the pancreatic duct. SPLEEN: Unremarkable. ADRENALS: Unremarkable. No mass. KIDNEYS AND URETERS: Unremarkable. No hydronephrosis. No solid mass. VASCULATURE: Unremarkable. No aortic aneurysm. BOWEL: Unremarkable. No obstruction. No gross mural thickening. APPENDIX: Normal appendix. PERITONEUM: Unremarkable. No free fluid. No free air. LYMPH NODES: Unremarkable. No enlarged lymph nodes. BLADDER: Unremarkable. REPRODUCTIVE: Unremarkable. BONES: No acute fracture. OTHER FINDINGS: None. IMPRESSION: Large mass in the pancreatic head. Severe dilatation of the common duct and intrahepatic ducts despite the presence of a stent. Multiple metastatic lesions in the liver
[2017-03-05] MEDS ORDERED: HYDROmorphone 0.5 mg/0.5 ml ISec IVP PRN (14:21)
--- NOTE | 2017-03-05 14:50 | CP.PCM.PN ---
<ChaddErin - Last Filed: 03/05/17 16:07> Subjective - Date & Time of Evaluation Date of Evaluation: 03/05/17 Time of Evaluation: 07:45 - Subjective Subjective: Pt seen and evaluated at bedside. Pt denies SOB, chest pain, abdominal pain, fever, chills. BM last PM is without blood. T max 102.9 overnight, fever since resolved. Objective - Vital Signs/Intake and Output Vital Signs (last 24 hours): Temp Pulse Resp BP Pulse Ox 99.9 F H 98 H 15 135/63 98 03/05/17 13:01 03/05/17 14:35 03/05/17 14:35 03/05/17 14:35 03/05/17 14:35 - Medications Medications: Current Medications Enoxaparin Sodium (Lovenox) 40 mg SC DAILY [facility] PRN Reason: Protocol Last Admin: 03/05/17 10:17 Dose: Not Given Hydromorphone HCl (Dilaudid) 0.5 mg IVP Q6H PRN PRN Reason: Pain, moderate (4-7) Last Admin: 03/05/17 10:39 Dose: 0.5 mg Hydromorphone HCl (Dilaudid) 0.5 mg IVP Q15M PRN PRN Reason: Pain, moderate (4-7) Stop: 03/05/17 16:22 Sodium Chloride (Sodium Chloride 0.9%) 1,000 mls @ 125 mls/hr IV .Q8H [facility] Last Admin: 03/05/17 10:05 Dose: 125 mls/hr Piperacillin Sod/Tazobactam Sod (Zosyn 4.5 Gm In Ns 100ml) 4.5 gm in 100 mls @ 200 mls/hr IVPB Q6 [facility] PRN Reason: Protocol Stop: 03/05/17 18:29 Last Admin: 03/05/17 12:21 Dose: 200 mls/hr Ondansetron HCl (Zofran Inj) 4 mg IVP ONCE PRN PRN Reason: Nausea/Vomiting Pantoprazole Sodium (Protonix Inj) 40 mg IVP DAILY [facility] Last Admin: 03/05/17 10:05 Dose: 40 mg Phytonadione (Vitamin K Tab) 5 mg PO DAILY [facility] Last Admin: 03/05/17 10:17 Dose: Not Given - Labs Labs: 03/05/17 06:00 03/05/17 06:00 PT 16.1 Seconds (9.9-11.8) H 03/05/17 05:15 INR 1.49 (0.93-1.08) H 03/05/17 05:15 APTT 43.5 Seconds (23.7-30.8) H 03/04/17 14:35 - Constitutional Appears: Non-toxic, No Acute Distress - Head Exam Head Exam: ATRAUMATIC, NORMOCEPHALIC - Eye Exam Eye Exam: EOMI, Scleral icterus - Respiratory Exam Respiratory Exam: Clear to Ausculation Bilateral, NORMAL BREATHING PATTERN - GI/Abdominal Exam GI & Abdominal Exam: Firm. absent: Tenderness - Exam External exam: absent: Ecchymosis, Erythema - Extremities Exam Extremities Exam: absent: Pedal Edema, Tenderness - Neurological Exam Neurological Exam: Alert, Awake - Psychiatric Exam Psychiatric exam: Normal Affect, Normal Mood - Skin Skin Exam: Intact, Normal Color Assessment and Plan - Assessment and Plan (Free Text) Plan: 56 M with h/o pancreatitis, pancreatic adenoCA s/p ERCP with stent placement admitted with fever, chills, weakness, & recurrent jaundice. Pt underwent ERCP and stent removal today. Obstructive Jaundrice, suspect acute cholangitis -IV Zosyn Q6H -GI consult, recs appreciated - pancreatic protocol CT 03/04/2017: large mass in pancreatic head severe dilatation ofCBD and intrahepatic ducts despite stent -ERCP and stent removal completed today 03/05 -liver biopsy pending -F/u Blood cultures, currently prelim results showing G neg rods x 2 bottles -F/u Urine cx Pancreatic CA -Biopsy: AdenoCA -CT Chest w/ contrast; CA staging: "unremarkable above diaphragm" -Heme/Onc Consulted; recs appreciated Hyponatremia -currently resolved -TSH low and FT3 6.8 (low), T4 9.1 ur osmol 190, urine na 30, k 5.6 Hypokalemia -Replete prn -K-rider 20meq hypophosphatemia - KPhos 15mmol -replete prn Elevated INR -Vit K DVT ppx/ GI ppx -Lovenox -Protonix Assessment and Plan discussed w/ attending <Deisi BARRON,Sheila - Last Filed: 05/17/17 16:31> Objective - Vital Signs/Intake and Output Vital Signs (last 24 hours): Temp Pulse Resp BP Pulse Ox 99.9 F H 98 H 14 123/74 94 L 03/05/17 13:01 03/05/17 15:05 03/05/17 15:05 03/05/17 15:05 03/05/17 15:05 - Medications Medications: Current Medications Enoxaparin Sodium (Lovenox) 40 mg SC DAILY [facility] PRN Reason: Protocol Last Admin: 03/05/17 10:17 Dose: Not Given Hydromorphone HCl (Dilaudid) 0.5 mg IVP Q6H PRN PRN Reason: Pain, moderate (4-7) Last Admin: 03/05/17 10:39 Dose: 0.5 mg Sodium Chloride (Sodium Chloride 0.9%) 1,000 mls @ 125 mls/hr IV .Q8H [facility] Last Admin: 03/05/17 10:05 Dose: 125 mls/hr Piperacillin Sod/Tazobactam Sod (Zosyn 4.5 Gm In Ns 100ml) 4.5 gm in 100 mls @ 200 mls/hr IVPB Q6 [facility] PRN Reason: Protocol Stop: 03/05/17 18:29 Last Admin: 03/05/17 12:21 Dose: 200 mls/hr Ondansetron HCl (Zofran Inj) 4 mg IVP ONCE PRN PRN Reason: Nausea/Vomiting Pantoprazole Sodium (Protonix Inj) 40 mg IVP DAILY [facility] Last Admin: 03/05/17 10:05 Dose: 40 mg Phytonadione (Vitamin K Tab) 5 mg PO DAILY [facility] Last Admin: 03/05/17 10:17 Dose: Not Given - Labs Labs: 03/05/17 06:00 03/05/17 06:00 PT 16.1 Seconds (9.9-11.8) H 03/05/17 05:15 INR 1.49 (0.93-1.08) H 03/05/17 05:15 APTT 43.5 Seconds (23.7-30.8) H 03/04/17 14:35 Attending/Attestation - Attestation I have personally seen and examined this patient.: Yes I have fully participated in the care of the patient.: Yes I have reviewed all pertinent clinical information, including history, physical exam and plan: Yes Notes (Text): 03/05/17 16:27 Patient was seen and examined with medical transcription supervisor .Agreed with resident assessment and plan. 56 Yrs old male with PMH of Adenocarcinoma of Pancrease was admitted with obstructive Jaundice , underwent ERCP and replacement of pancreatic stent today.We will monitor LFT. Patient is also found to have gram negative bacteremia , on IV zosyn, repeat cultures has been ordered.ID is also consulted.We will follow up repeat cultures. Hyponatremia has resolved. Hypokalemia , electrolyte has been repalced, will follow up repeat LABS. Management plan was discussed in detail with patient Education was provided. 03/05/17 16:28
--- NOTE | 2017-03-05 19:36 | CP.PCM.CON ---
History of Present Illness - History of Present Illness History of Present Illness: 56 year old male with a history of pancreatic adenocarcinoma of the pancreas diagnosed in 01/2017, admitted with obstructive jaundice and cholangitis. The patient is currently s/p ERCP with metal stent exchange. He reports to feeling much better with improvement in his pain. He attributes his symptoms starting about 2 weeks ago when he had a steak dinner. Since then he has been experiencing abdominal pain, nause/vomiting, and yellowing of his eyes. CT scans done during this admission revealed multiple liver lesions. Past medical history: None Past surgical history: None Family history: Father had colon cancer Social history: 12ppd x 25 years, denies alcohol, and illicit drug use. Allergies: NKA Review of systms: All remaining review of systems inlcuding HEENT, cardiovascular, respiratory, gastrointestinal, genitourinary, musculoskeletal, dermatologic, neurologic, and psychiatric are negative unless mentioned in the HPI. Past Patient History - Past Medical History & Family History Past Medical History?: No - Past Social History Smoking Status: Former Smoker - CARDIAC Hx Pacemaker: No - PULMONARY Hx Respiratory Disorders: No - NEUROLOGICAL Hx Neurological Disorder: No - HEENT Hx HEENT Problems: No - RENAL Hx Chronic Kidney Disease: No - ENDOCRINE/METABOLIC Hx Endocrine Disorders: No - HEMATOLOGICAL/ONCOLOGICAL Hx Blood Transfusions: No Hx Blood Transfusion Reaction: Yes - INTEGUMENTARY Hx Dermatological Problems: Yes (jaundaced) - MUSCULOSKELETAL/RHEUMATOLOGICAL Hx Falls: No - GASTROINTESTINAL Hx Gastrointestinal Disorders: Yes Other/Comment: eus/egd/ercp duodenitis/ dilated cbd/ cbd stricture/ pancreatic mass/ 01/29/2017 - GENITOURINARY/GYNECOLOGICAL Hx Genitourinary Disorders: No - PSYCHIATRIC Hx Substance Use: No - SURGICAL HISTORY Hx Surgeries: No - ANESTHESIA Hx Anesthesia Reactions: No Hx Malignant Hyperthermia: No Meds Allergies/Adverse Reactions: Allergies Allergy/AdvReac Type Severity Reaction Status Date / Time No Known Allergies Allergy Verified 03/04/17 13:28 - Medications Medications: Current Medications Enoxaparin Sodium (Lovenox) 40 mg SC DAILY [facility] PRN Reason: Protocol Last Admin: 03/05/17 10:17 Dose: Not Given Hydromorphone HCl (Dilaudid) 0.5 mg IVP Q6H PRN PRN Reason: Pain, moderate (4-7) Last Admin: 03/05/17 10:39 Dose: 0.5 mg Sodium Chloride (Sodium Chloride 0.9%) 1,000 mls @ 125 mls/hr IV .Q8H [facility] Last Admin: 03/05/17 10:05 Dose: 125 mls/hr Ondansetron HCl (Zofran Inj) 4 mg IVP ONCE PRN PRN Reason: Nausea/Vomiting Pantoprazole Sodium (Protonix Inj) 40 mg IVP DAILY [facility] Last Admin: 03/05/17 10:05 Dose: 40 mg Phytonadione (Vitamin K Tab) 5 mg PO DAILY [facility] Last Admin: 03/05/17 10:17 Dose: Not Given Physical Exam - Head Exam Head Exam: ATRAUMATIC - Eye Exam Eye Exam: Scleral icterus - ENT Exam ENT Exam: Mucous Membranes Dry - Respiratory Exam Respiratory Exam: NORMAL BREATHING PATTERN - Cardiovascular Exam Cardiovascular Exam: +S1, +S2 - GI/Abdominal Exam GI & Abdominal Exam: Normal Bowel Sounds - Extremities Exam Extremities exam: Positive for: normal inspection - Neurological Exam Neurological exam: Oriented x3 - Psychiatric Exam Psychiatric exam: Normal Affect, Normal Mood - Skin Skin Exam: Warm Results - Vital Signs Recent Vital Signs: Last Vital Signs Temp 98.4 F 03/05/17 18:25 Pulse 89 03/05/17 18:25 Resp 16 03/05/17 18:25 BP 157/93 H 03/05/17 18:25 Pulse Ox 94 L 03/05/17 15:05 - Labs Result Diagrams: 03/05/17 06:00 03/05/17 06:00 Labs: Laboratory Results - last 24 hr 03/04/17 03/05/17 03/05/17 18:30 05:15 05:15 WBC RBC Hgb Hct MCV MCH MCHC RDW Plt Count MPV Gran % Lymph % (Auto) [place] % (Auto) Eos % (Auto) Baso % (Auto) Gran # Lymph # [place] # Eos # Baso # PT 16.1 H INR 1.49 H Sodium Potassium Chloride Carbon Dioxide Anion Gap BUN Creatinine Est GFR ( Amer) Est GFR (Non-Af Amer) Random Glucose Calcium Magnesium Total Bilirubin AST ALT Alkaline Phosphatase Total Protein Albumin Globulin Albumin/Globulin Ratio Thyroxine (T4) Total T3 TSH 3rd Generation 0.12 L Urine Osmolality 190 03/05/17 03/05/17 03/05/17 05:15 06:00 06:00 WBC 20.6 H RBC 3.60 Hgb 10.4 L Hct 29.9 L MCV 83.1 MCH 28.9 MCHC 34.8 RDW 14.8 H Plt Count 369 MPV 10.8 Gran % 70.4 H Lymph % (Auto) 13.3 L [place] % (Auto) 16.1 H Eos % (Auto) 0.1 L Baso % (Auto) 0.1 Gran # 14.49 H Lymph # 2.7 [place] # 3.3 H Eos # 0.0 Baso # 0.02 PT INR Sodium 135 Potassium 3.5 L Chloride 99 Carbon Dioxide 28 Anion Gap 12 BUN 15 Creatinine 0.9 Est GFR ( Amer) > 60 Est GFR (Non-Af Amer) > 60 Random Glucose 93 Calcium 8.1 L Magnesium 2.5 H Total Bilirubin 13.5 H AST 82 H ALT 83 H Alkaline Phosphatase 378 H Total Protein 6.6 Albumin 2.6 L Globulin 4.0 Albumin/Globulin Ratio 0.7 L Thyroxine (T4) Total T3 TSH 3rd Generation Urine Osmolality 03/05/17 06:00 WBC RBC Hgb Hct MCV MCH MCHC RDW Plt Count MPV Gran % Lymph % (Auto) [place] % (Auto) Eos % (Auto) Baso % (Auto) Gran # Lymph # [place] # Eos # Baso # PT INR Sodium Potassium Chloride Carbon Dioxide Anion Gap BUN Creatinine Est GFR ( Amer) Est GFR (Non-Af Amer) Random Glucose Calcium Magnesium Total Bilirubin AST ALT Alkaline Phosphatase Total Protein Albumin Globulin Albumin/Globulin Ratio Thyroxine (T4) 9.1 Total T3 0.68 L TSH 3rd Generation Urine Osmolality Assessment & Plan (1) Jaundice Assessment and Plan: obstructive jaundice secondary to pancreatic head mass s/p ERCP with metal stent antibiotic coverage for cholangitis Status: Acute (2) Leucocytosis Status: Acute (3) Liver lesion Assessment and Plan: ? metastatic disease ? liver abscesses recommend IR biopsy Status: Acute (4) Leucocytosis Assessment and Plan: on antibiotics Status: Acute (5) Anemia Assessment and Plan: chronic disease Status: Acute (6) Pancreatic cancer Assessment and Plan: liver lesion biopsy ?metastasis vs infection if confirmed metastasis to the liver, will need portacath placement for systemic chemotherapy if not metastatic disease, will need surg onc f/u for whipple procedure Thank you for this interesting consult. Status: Acute
[2017-03-05] MEDS: Meropenem 1g/NS 100mL IVPB 1 GM/100 ML PIGGYBACK IVPB SCH (22:32)
[2017-03-06] MEDS ORDERED: Midazolam 2 MG/2 ML VIAL ONE (11:35)
[2017-03-06] MEDS ORDERED: Piperacillin/Tazobact 3.375 gm 100 ML IVPB ONE ×2 (13:28→17:56)
--- NOTE | 2017-03-06 15:31 | CON ---
DATE: 03/06/2017 LOCATION: 271, bed 1. REASON FOR INFECTIOUS DISEASE CONSULT: Gram-negative bacilli bacteremia. HISTORY OF PRESENT ILLNESS: We have a 56-year-old male with a past medical history of recently diagn osed pancreatic cancer who came in complaining of subjective fevers and chills, nausea, 1 episode of vomiting and abdominal pain for the past week, which has worsened in the past 3-4 days. The patient apparently had a stent placed last month because of the pancreatic cancer. The stent was placed in h is biliary tree and was doing well until about last week. The patient denies headache or dizziness. No chest pain, no shortness of breath, no cough, no colds, no sore throat, no dysphagia, no diarrhea , no dysuria, no body aches, no muscle aches, no joint aches, no bleeding, no hematuria. Yesterday, the patient underwent EGD as well as stent placement again into the bile duct and was found to have p robably acute cholangitis, and the patient was found to also have gram-negative bacilli in the blood and, therefore, ID consult was requested to further evaluate and manage. REVIEW OF SYSTEMS: As per history of the present illness. PAST MEDICAL HISTORY: As per history of present illness. FAMILY MEDICAL HISTORY: Noncontributory. PERSONAL SOCIAL HISTORY: The patient denies current alcohol abuse or illicit drug use currently. ALLERGIES: No known allergies to antibiotics. OBJECTIVE: VITAL SIGNS: The patient is currently afebrile, blood pressure 122/80, heart rate of 76, respiratory rate of 20. HEAD AND NECK: Normocephalic, atraumatic. The patient has icteric sclerae. CHEST: Decreased breath sounds bilaterally. HEART: S1, S2 are normal. ABDOMEN: Soft, nontender, nondistended currently. LABORATORY DATA: Unfortunately, we are unable to fully review the labs of this patient as of today because of the downed computer systems, but we do know that the blood cultures that were taken from y are positive for gram-negative bacilli 1 out of 2 sets. MEDICATIONS: The patient is currently on meropenem for antibiotics. ASSESSMENT: We have a 56-year-old male with a past medical history of newly diagnosed pancreatic can cer coming in with sepsis due to gram-negative bacilli bacteremia probably from acute cholangitis whi ch may be related to the patient's pancreatic cancer status post endoscopy and ERCP with stent placem ent into the bile duct. PLAN: We have started the patient already on meropenem as of last night, pending the identification and sensitivities of the gram-negative bacilli in the blood. We will repeat the blood cultures to se e if there is clearance of the bacteria, and we may be able to narrow down the spectrum of the antibi otics based on the sensitivities of the gram-negative bacilli in the blood. We will follow the recom mendations of GI with regards to the patient's ____ pancreatic cancer. Unfortunately, the overall pr ognosis of the patient is poor. Marquis Gee M.D. cc: [id number] TT: 03/06/2017 15:31:26 Confirmation # [id number] Dictation # [id number] lon
[2017-03-06] MEDS: HYDROmorphone 0.5 mg/0.5 ml ISec IVP PRN (20:10)
[2017-03-06] MEDS: Meropenem 1g/NS 100mL IVPB 1 GM/100 ML PIGGYBACK IVPB SCH (21:35)
--- NOTE | 2017-03-06 21:50 | RAD ---
HISTORY: COMPARISON: No prior. FINDINGS: LUNGS: No active pulmonary disease. PLEURA: No significant pleural effusion identified, no pneumothorax apparent. CARDIOVASCULAR: Normal. OSSEOUS STRUCTURES: No significant abnormalities. VISUALIZED UPPER ABDOMEN: Normal. OTHER FINDINGS: None. IMPRESSION: No active disease.
[2017-03-07] MEDS: HYDROmorphone 0.5 mg/0.5 ml ISec IVP PRN ×5 (02:00→23:00)
[2017-03-07] MEDS: Sodium Chloride 0.9% 1,000 ML IV SCH ×2 (02:01→13:07)
[2017-03-07] MEDS: Meropenem 1g/NS 100mL IVPB 1 GM/100 ML PIGGYBACK IVPB SCH ×3 (05:33→22:56)
[2017-03-07 06:51] LABS: HEMATOCRIT 27.6 % (42.0-52.0); MEAN CELL VOLUME 83.4 fL (80.0-105.0); MEAN CORPUSCULAR HEMOGLOBIN 29.3 pg (25.0-35.0); MEAN CORPUSCULAR HGB CONC 35.1 g/dl (31.0-37.0); MEAN PLATELET VOLUME 10.5 fl (7.0-11.0); PLATELET COUNT 560 10^3/uL (120.0-450.0); RED CELL DISTRIBUTION WIDTH 14.6 % (11.5-14.5); WHITE BLOOD COUNT 20.2 10^3/ul (4.5-11.0)
[2017-03-07 06:56] LABS: ADD MANUAL DIFF? YES
--- NOTE | 2017-03-07 07:35 | CP.PCM.PN ---
<Everette Lu - Last Filed: 03/07/17 10:10> Subjective - Date & Time of Evaluation Date of Evaluation: 03/07/17 Time of Evaluation: 07:30 - Subjective Subjective: PGY4 GI Fellow Progress Note Patient seen and examined bedside this morning. The patient admits to some moderate abdominal pain, relieved with PO analgesics but only for short periods of time. Admits to BM yesterday without issue. Tolerating diet. Feeling better, without fever, chills. 12 system ROS performed and negative except where stated. Objective - Vital Signs/Intake and Output Vital Signs (last 24 hours): Temp Pulse Resp BP Pulse Ox 98.3 F 78 22 136/74 99 03/07/17 05:52 03/07/17 05:52 03/07/17 05:52 03/07/17 05:52 03/07/17 05:52 Intake and Output: 03/07/17 03/07/17 06:59 18:59 Intake Total 2460 Output Total 1200 Balance 1260 - Medications Medications: Current Medications Enoxaparin Sodium (Lovenox) 40 mg SC DAILY [facility] PRN Reason: Protocol Last Admin: 03/05/17 10:17 Dose: Not Given Hydromorphone HCl (Dilaudid) 0.5 mg IVP Q6H PRN PRN Reason: Pain, moderate (4-7) Last Admin: 03/07/17 02:00 Dose: 0.5 mg Sodium Chloride (Sodium Chloride 0.9%) 1,000 mls @ 125 mls/hr IV .Q8H [facility] Last Admin: 03/07/17 02:01 Dose: 125 mls/hr Meropenem 1g/NS 100mL IVPB (Meropenem 1g/Ns 100ml Ivpb) 1 gm in 100 mls @ 100 mls/hr IVPB Q8 [facility] PRN Reason: Protocol Stop: 03/12/17 22:01 Last Admin: 03/07/17 05:33 Dose: 100 mls/hr Ondansetron HCl (Zofran Inj) 4 mg IVP ONCE PRN PRN Reason: Nausea/Vomiting Pantoprazole Sodium (Protonix Inj) 40 mg IVP DAILY [facility] Last Admin: 03/05/17 10:05 Dose: 40 mg Phytonadione (Vitamin K Tab) 5 mg PO DAILY [facility] Last Admin: 03/05/17 10:17 Dose: Not Given - Labs Labs: 03/07/17 05:40 03/05/17 06:00 PT 16.1 Seconds (9.9-11.8) H 03/05/17 05:15 INR 1.49 (0.93-1.08) H 03/05/17 05:15 APTT 43.5 Seconds (23.7-30.8) H 03/04/17 14:35 - Constitutional Appears: Non-toxic, No Acute Distress - Eye Exam Eye Exam: EOMI, PERRL, Scleral icterus - ENT Exam ENT Exam: Mucous Membranes Moist - Respiratory Exam Respiratory Exam: Clear to Ausculation Bilateral. absent: Rales, Rhonchi - Cardiovascular Exam Cardiovascular Exam: RRR, +S1, +S2 - GI/Abdominal Exam GI & Abdominal Exam: Soft, Tenderness (mild epigastric), Normal Bowel Sounds. absent: Distended, Firm, Guarding, Rigid, Organomegaly - Extremities Exam Extremities Exam: Normal Inspection. absent: Pedal Edema - Neurological Exam Neurological Exam: Alert, Awake, Oriented x3 - Psychiatric Exam Psychiatric exam: Normal Affect, Normal Mood - Skin Skin Exam: Dry, Warm Assessment and Plan - Assessment and Plan (Free Text) Assessment: Patient is a 56yo male with known history of pancreatic adenocarcinoma who presented to the ED for abnormal lab work and abdominal pain. -Sepsis, acute cholangitis with GNR bacteremia -Pancreatic adenocarcinoma -Obstructive jaundice and hyperbilirubinemia 2/2 above -Transaminasemia 2/2 above, improved -Coagulopathy 2/2 obstructive biliary disease Plan: -Continue IV ABX therapy; awaiting blood cx results to identify organism -S/P ERCP POD#2 with fully covered metal stent placement -S/P IR liver lesion biopsy to rule out metastatic disease vs infectious cause -Per oncology - if metastatic dz present, systemic chemo; if not, referral for Whipple -Patient still seeking 2nd oncology opinion from OSH <Mayank Thomas - Last Filed: 03/07/17 11:16> Objective - Vital Signs/Intake and Output Vital Signs (last 24 hours): Temp Pulse Resp BP Pulse Ox 98.3 F 78 22 136/74 99 03/07/17 05:52 03/07/17 05:52 03/07/17 05:52 03/07/17 05:52 03/07/17 05:52 Intake and Output: 03/07/17 03/07/17 06:59 18:59 Intake Total 2460 Output Total 1200 Balance 1260 - Medications Medications: Current Medications Enoxaparin Sodium (Lovenox) 40 mg SC DAILY [facility] PRN Reason: Protocol Last Admin: 03/05/17 10:17 Dose: Not Given Hydromorphone HCl (Dilaudid) 0.5 mg IVP Q6H PRN PRN Reason: Pain, moderate (4-7) Last Admin: 03/07/17 08:15 Dose: 0.5 mg Sodium Chloride (Sodium Chloride 0.9%) 1,000 mls @ 125 mls/hr IV .Q8H [facility] Last Admin: 03/07/17 02:01 Dose: 125 mls/hr Meropenem 1g/NS 100mL IVPB (Meropenem 1g/Ns 100ml Ivpb) 1 gm in 100 mls @ 100 mls/hr IVPB Q8 [facility] PRN Reason: Protocol Stop: 03/12/17 22:01 Last Admin: 03/07/17 05:33 Dose: 100 mls/hr Ondansetron HCl (Zofran Inj) 4 mg IVP ONCE PRN PRN Reason: Nausea/Vomiting Pantoprazole Sodium (Protonix Inj) 40 mg IVP DAILY [facility] Last Admin: 03/07/17 09:50 Dose: 40 mg Phytonadione (Vitamin K Tab) 5 mg PO DAILY [facility] Last Admin: 03/07/17 09:51 Dose: 5 mg - Labs Labs: 03/07/17 05:40 03/07/17 07:50 PT 16.1 Seconds (9.9-11.8) H 03/05/17 05:15 INR 1.49 (0.93-1.08) H 03/05/17 05:15 APTT 43.5 Seconds (23.7-30.8) H 03/04/17 14:35 Attending/Attestation - Attestation I have personally seen and examined this patient.: Yes I have fully participated in the care of the patient.: Yes I have reviewed all pertinent clinical information, including history, physical exam and plan: Yes Notes (Text): 03/07/17 11:12 I have seen and examined patient with GI fellow. He is seen sitting at bedside , appears quite comfortable. No acute events overnight, he endorses mild epigastric abdominal pain, though relieved with pain medication. He denies nausea, vomiting, fever/chills. Tolerating PO liquids without difficulty. Review of vitals from today are normal. Pancreatic cancer Sepsis, bacteremia - cholangitis s/p ERCP and stent replacement with covered metal CBD stent Obstructive jaundice Transaminitis - Advance diet as tolerated - LFTs/bilirubin trending down, continue to monitor - Continue with antibiotic therapy as per ID - Awaiting biopsy results from liver lesions - Will continue to monitor patient clinical course
[2017-03-07 08:23] LABS: ALB/GLOB RATIO 0.7 (1.1-1.8); ALKALINE PHOSPHATASE 291 U/L (38-133); ALT/SGPT 56 U/L (7-56); AST/SGOT 41 U/L (15-59); BILIRUBIN,TOTAL 5.8 mg/dL (0.2-1.3); BLOOD UREA NITROGEN 9 mg/dL (7-21); CALCIUM 7.9 mg/dL (8.4-10.5); CARBON DIOXIDE 26 mmol/L (21-33); CHLORIDE 101 mmol/L (95-110); GFR AFRICAN-AMERICAN > 60; GLUCOSE,RANDOM 76 mg/dL (70-110); POTASSIUM 3.5 mmol/L (3.6-5.0); SODIUM 135 mmol/L (132-148); TOTAL PROTEIN 6.1 g/dL (5.8-8.3)
[2017-03-07 10:31] LABS: NEUTROPHIL 78 % (50.0-70.0)
[2017-03-07 10:32] LABS: ANISOCYTOSIS 1+; HYPOCHROMIA 1+; MICROCYTOSIS SLIGHT; PLATELET ESTIMATE HIGH (NORMAL)
[2017-03-07] MEDS ORDERED: Potassium Chloride 20 mEq ER Tab PO ONE (12:47)
--- NOTE | 2017-03-07 12:56 | CP.PCM.PN ---
<Madhu Peng - Last Filed: 03/07/17 13:03> Subjective - Date & Time of Evaluation Date of Evaluation: 03/07/17 Time of Evaluation: 07:00 - Subjective Subjective: Patient seen and examined with medical attending this morning. Patient reports feeling mild abdominal pain which is initially controlled with analgesics but effects of analgesics wear away quickly according to patient. Pt is tolerating liquid diet. Denies n/v. Reports passing flatus and having BM. No acute events over night. Patient states he is feeling better. Objective - Vital Signs/Intake and Output Vital Signs (last 24 hours): Temp Pulse Resp BP Pulse Ox 98.5 F 75 20 135/79 99 03/07/17 11:46 03/07/17 11:46 03/07/17 11:46 03/07/17 11:46 03/07/17 05:52 Intake and Output: 03/07/17 03/07/17 06:59 18:59 Intake Total 2460 Output Total 1200 Balance 1260 - Medications Medications: Current Medications Enoxaparin Sodium (Lovenox) 40 mg SC DAILY [facility] PRN Reason: Protocol Last Admin: 03/05/17 10:17 Dose: Not Given Hydromorphone HCl (Dilaudid) 0.5 mg IVP Q4H PRN PRN Reason: Pain, moderate (4-7) Sodium Chloride (Sodium Chloride 0.9%) 1,000 mls @ 125 mls/hr IV .Q8H [facility] Last Admin: 03/07/17 02:01 Dose: 125 mls/hr Meropenem 1g/NS 100mL IVPB (Meropenem 1g/Ns 100ml Ivpb) 1 gm in 100 mls @ 100 mls/hr IVPB Q8 [facility] PRN Reason: Protocol Stop: 03/12/17 22:01 Last Admin: 03/07/17 05:33 Dose: 100 mls/hr Ondansetron HCl (Zofran Inj) 4 mg IVP ONCE PRN PRN Reason: Nausea/Vomiting Pantoprazole Sodium (Protonix Inj) 40 mg IVP DAILY [facility] Last Admin: 03/07/17 09:50 Dose: 40 mg Phytonadione (Vitamin K Tab) 5 mg PO DAILY [facility] Last Admin: 03/07/17 09:51 Dose: 5 mg - Labs Labs: 03/07/17 05:40 03/07/17 07:50 PT 16.1 Seconds (9.9-11.8) H 03/05/17 05:15 INR 1.49 (0.93-1.08) H 03/05/17 05:15 APTT 43.5 Seconds (23.7-30.8) H 03/04/17 14:35 - Constitutional Appears: No Acute Distress - Head Exam Head Exam: NORMOCEPHALIC - Eye Exam Eye Exam: Scleral icterus - ENT Exam ENT Exam: Mucous Membranes Moist Additional comments: buccal jaundice - Respiratory Exam Respiratory Exam: NORMAL BREATHING PATTERN - Cardiovascular Exam Cardiovascular Exam: +S1, +S2 - GI/Abdominal Exam GI & Abdominal Exam: Soft. absent: Firm, Guarding - Neurological Exam Neurological Exam: Alert, Awake, Oriented x3 - Psychiatric Exam Psychiatric exam: Normal Mood - Skin Skin Exam: Intact, Warm Assessment and Plan - Assessment and Plan (Free Text) Assessment: 56 M with h/o pancreatitis, pancreatic adenoCA s/p ERCP with stent placement admitted with fever, chills, weakness, & recurrent jaundice. Pt underwent ERCP w/ plastic stent removal and insertion of wire biliary stent. Pt s/p IR liver biopsy. Plan: Obstructive Jaundrice, suspect acute cholangitis -WBC trending down, 20.6 today -Meropenem 1 gm Q8h, per ID -GI consult, recs appreciated - pancreatic protocol CT 03/04/2017: large mass in pancreatic head severe dilatation of CBD and intrahepatic ducts despite stent -ERCP and stent removal completed on 03/05, wire biliary stent placed -liver biopsy, results pending -F/u Blood cultures, currently prelim results showing G neg rods x 2 bottles. F/ u repeat blood cx. Once negative, will switch to PO abx. Pancreatic CA -Biopsy: AdenoCA -CT Chest w/ contrast; CA staging: unremarkable above diaphragm. See report for full details -Heme/Onc Consulted; recs appreciated Hyponatremia -currently resolved -TSH low and FT3 6.8 (low), T4 9.1 ur osmol 190, urine na 30, k 5.6 Hypokalemia -Replete prn -Kdur 40meq PO hypophosphatemia - KPhos 15mmol -replete prn Elevated INR -resolved DVT ppx/ GI ppx -Lovenox, resume -Protonix Assessment and Plan discussed w/ attending <Deisi BARRON,Sheila - Last Filed: 03/07/17 13:58> Objective - Vital Signs/Intake and Output Vital Signs (last 24 hours): Temp Pulse Resp BP Pulse Ox 98.5 F 75 20 135/79 99 03/07/17 11:46 03/07/17 11:46 03/07/17 11:46 03/07/17 11:46 03/07/17 05:52 Intake and Output: 03/07/17 03/07/17 06:59 18:59 Intake Total 2460 Output Total 1200 Balance 1260 - Medications Medications: Current Medications Enoxaparin Sodium (Lovenox) 40 mg SC DAILY [facility] PRN Reason: Protocol Last Admin: 03/05/17 10:17 Dose: Not Given Hydromorphone HCl (Dilaudid) 0.5 mg IVP Q4H PRN PRN Reason: Pain, moderate (4-7) Sodium Chloride (Sodium Chloride 0.9%) 1,000 mls @ 125 mls/hr IV .Q8H [facility] Last Admin: 03/07/17 13:07 Dose: 125 mls/hr Meropenem 1g/NS 100mL IVPB (Meropenem 1g/Ns 100ml Ivpb) 1 gm in 100 mls @ 100 mls/hr IVPB Q8 [facility] PRN Reason: Protocol Stop: 03/12/17 22:01 Last Admin: 03/07/17 13:09 Dose: 100 mls/hr Ondansetron HCl (Zofran Inj) 4 mg IVP ONCE PRN PRN Reason: Nausea/Vomiting Pantoprazole Sodium (Protonix Inj) 40 mg IVP DAILY [facility] Last Admin: 03/07/17 09:50 Dose: 40 mg Phytonadione (Vitamin K Tab) 5 mg PO DAILY [facility] Last Admin: 03/07/17 09:51 Dose: 5 mg - Labs Labs: 03/07/17 05:40 03/07/17 07:50 PT 16.1 Seconds (9.9-11.8) H 03/05/17 05:15 INR 1.49 (0.93-1.08) H 03/05/17 05:15 APTT 43.5 Seconds (23.7-30.8) H 03/04/17 14:35 Attending/Attestation - Attestation I have personally seen and examined this patient.: Yes I have fully participated in the care of the patient.: Yes I have reviewed all pertinent clinical information, including history, physical exam and plan: Yes Notes (Text): 03/07/17 13:55 Patient was seen and examined with medical billing manager .Agreed with resident assessment and plan. 56 Yrs old male with PMH of Adenocarcinoma of Pancrease was admitted with obstructive Jaundice , underwent ERCP and replacement of pancreatic 2 days back.Abdominal pain is better, LFT are coming down.Patient is tolerating liquid diet. Patient is also found to have gram negative bacteremia , on IV Meropenenm, , as per ID. Patient also underwent biopsy of liver lesion yesterday, we will follow up biopsy results. Hyponatremia has resolved. Management plan was discussed in detail with patient Education was provided. 03/07/17 13:57
--- NOTE | 2017-03-07 14:18 | RAD ---
PROCEDURE: Fluoroscopy up to 1 hr. HISTORY: ? CBD OBST COMPARISON: 01/29/2017. TECHNIQUE: Standard protocol for this study/examination. FINDINGS: Total fluoroscopic time (continuous mode) utilized during the procedure: 2 minutes 45 seconds fluoro time. IMPRESSION: Common bile duct stent noted in satisfactory position.
--- NOTE | 2017-03-07 17:59 | CT ---
PROCEDURE: CT guided liver biopsy. HISTORY: Pancreatic carcinoma. Multiple liver lesions. Evaluate for metastatic disease. PHYSICIAN(S): Denny Quintanilla MD. TECHNIQUE: The relative risks and indications of the procedure were explained to the patient and consent obtained. The patient was placed supine on the CT scanner and preliminary images through the liver obtained. Conscious sedation and monitoring were provided throughout the procedure by a nurse. The low-attenuation lesions in the dome of the liver are subtle on the noncontrast imaging.. A right lateral approach was selected and the area prepped and draped in the usual sterile fashion. 1% Xylocaine was used to anesthetize the skin and soft tissues. A 17-gauge guiding needle was advanced into the low-attenuation lesions in the dome of the liver. Its position was confirmed with CT. Using coaxial technique, multiple core biopsies were obtained. The postprocedure images show no evidence of significant hemorrhage. IMPRESSION: 1. CT-guided liver biopsy as described above.
--- NOTE | 2017-03-07 21:49 | CP.PCM.PN ---
Subjective - Date & Time of Evaluation Date of Evaluation: 03/07/17 Time of Evaluation: 12:15 - Subjective Subjective: Comfortable, afebrile, not in distress, improved abdominal pain, no nausea or diarrhea. Objective - Vital Signs/Intake and Output Vital Signs (last 24 hours): Temp Pulse Resp BP Pulse Ox 98.7 F 83 18 144/86 98 03/07/17 18:15 03/07/17 18:15 03/07/17 18:15 03/07/17 18:15 03/07/17 18:15 Intake and Output: 03/07/17 03/08/17 18:59 06:59 Intake Total 480 Balance 480 - Medications Medications: Current Medications Enoxaparin Sodium (Lovenox) 40 mg SC DAILY [facility] PRN Reason: Protocol Last Admin: 03/05/17 10:17 Dose: Not Given Hydromorphone HCl (Dilaudid) 0.5 mg IVP Q4H PRN PRN Reason: Pain, moderate (4-7) Last Admin: 03/07/17 18:22 Dose: 0.5 mg Sodium Chloride (Sodium Chloride 0.9%) 1,000 mls @ 125 mls/hr IV .Q8H [facility] Last Admin: 03/07/17 13:07 Dose: 125 mls/hr Meropenem 1g/NS 100mL IVPB (Meropenem 1g/Ns 100ml Ivpb) 1 gm in 100 mls @ 100 mls/hr IVPB Q8 [facility] PRN Reason: Protocol Stop: 03/12/17 22:01 Last Admin: 03/07/17 13:09 Dose: 100 mls/hr Ondansetron HCl (Zofran Inj) 4 mg IVP ONCE PRN PRN Reason: Nausea/Vomiting Pantoprazole Sodium (Protonix Inj) 40 mg IVP DAILY [facility] Last Admin: 03/07/17 09:50 Dose: 40 mg Phytonadione (Vitamin K Tab) 5 mg PO DAILY [facility] Last Admin: 03/07/17 09:51 Dose: 5 mg - Labs Labs: 03/07/17 05:40 03/07/17 07:50 PT 16.1 Seconds (9.9-11.8) H 03/05/17 05:15 INR 1.49 (0.93-1.08) H 03/05/17 05:15 APTT 43.5 Seconds (23.7-30.8) H 03/04/17 14:35 - Constitutional Appears: Non-toxic, No Acute Distress - Head Exam Head Exam: NORMAL INSPECTION - ENT Exam ENT Exam: Mucous Membranes Moist - Neck Exam Neck Exam: absent: Lymphadenopathy, Meningismus - Respiratory Exam Respiratory Exam: Decreased Breath Sounds - Cardiovascular Exam Cardiovascular Exam: +S1, +S2 - GI/Abdominal Exam GI & Abdominal Exam: Soft. absent: Tenderness Assessment and Plan - Assessment and Plan (Free Text) Plan: Assessment Sepsis secondary to gram negative bacilli bacteremia due to acute cholangitis S/ P ERCP and stent placement POD #3 pancreatic cancer Plan continue merrem day 3 pending identification and sensitivities of the gram negative bacilli in the blood; follow up repeat blood cx done today will monitor clinically
--- NOTE | 2017-03-08 01:06 | CP.PCM.PN ---
Subjective - Date & Time of Evaluation Date of Evaluation: 03/07/17 Time of Evaluation: 17:30 - Subjective Subjective: Feeling better s/p liver lesion biopsy Objective - Vital Signs/Intake and Output Vital Signs (last 24 hours): Temp Pulse Resp BP Pulse Ox 98.7 F 83 18 144/86 98 03/07/17 18:15 03/07/17 18:15 03/07/17 18:15 03/07/17 18:15 03/07/17 18:15 Intake and Output: 03/07/17 03/08/17 18:59 06:59 Intake Total 480 Balance 480 - Medications Medications: Current Medications Enoxaparin Sodium (Lovenox) 40 mg SC DAILY [facility] PRN Reason: Protocol Last Admin: 03/05/17 10:17 Dose: Not Given Hydromorphone HCl (Dilaudid) 0.5 mg IVP Q4H PRN PRN Reason: Pain, moderate (4-7) Last Admin: 03/07/17 23:00 Dose: 0.5 mg Sodium Chloride (Sodium Chloride 0.9%) 1,000 mls @ 125 mls/hr IV .Q8H [facility] Last Admin: 03/07/17 13:07 Dose: 125 mls/hr Meropenem 1g/NS 100mL IVPB (Meropenem 1g/Ns 100ml Ivpb) 1 gm in 100 mls @ 100 mls/hr IVPB Q8 [facility] PRN Reason: Protocol Stop: 03/12/17 22:01 Last Admin: 03/07/17 22:56 Dose: 100 mls/hr Ondansetron HCl (Zofran Inj) 4 mg IVP ONCE PRN PRN Reason: Nausea/Vomiting Pantoprazole Sodium (Protonix Inj) 40 mg IVP DAILY [facility] Last Admin: 03/07/17 09:50 Dose: 40 mg Phytonadione (Vitamin K Tab) 5 mg PO DAILY [facility] Last Admin: 03/07/17 09:51 Dose: 5 mg - Labs Labs: 03/07/17 05:40 03/07/17 07:50 PT 16.1 Seconds (9.9-11.8) H 03/05/17 05:15 INR 1.49 (0.93-1.08) H 03/05/17 05:15 APTT 43.5 Seconds (23.7-30.8) H 03/04/17 14:35 - Head Exam Head Exam: ATRAUMATIC - Eye Exam Eye Exam: Scleral icterus - ENT Exam ENT Exam: Mucous Membranes Dry - Respiratory Exam Respiratory Exam: NORMAL BREATHING PATTERN - Cardiovascular Exam Cardiovascular Exam: +S1, +S2 - GI/Abdominal Exam GI & Abdominal Exam: Normal Bowel Sounds Assessment and Plan (1) Jaundice Assessment & Plan: obstructive secondary to pancreatic adenocarcinoma s/p ERCP with stent exchange tbili trending down antibiotic coverage for cholangitis/sepsis Status: Acute (2) Leucocytosis Assessment & Plan: improving with antibiotics Status: Acute (3) Liver lesion Assessment & Plan: abscess vs metastatic disease case discussed with Dr. Quintanilla; s/p biopsy f/u path Status: Acute (4) Anemia Assessment & Plan: chronic disease Status: Acute (5) Pancreatic cancer Assessment & Plan: if confirmed metastatic disease, will be treated with chemotherapy with me if not metastatic, for [facility] surg onc surgical evaluation for whipple Status: Acute
[2017-03-08] MEDS: HYDROmorphone 0.5 mg/0.5 ml ISec IVP PRN ×5 (03:21→21:57)
[2017-03-08] MEDS: Sodium Chloride 0.9% 1,000 ML IV SCH ×4 (06:57→16:54)
[2017-03-08] MEDS: Meropenem 1g/NS 100mL IVPB 1 GM/100 ML PIGGYBACK IVPB SCH ×3 (06:57→21:56)
[2017-03-08 07:28] LABS: ADD MANUAL DIFF? NO
--- NOTE | 2017-03-08 07:31 | CP.PCM.PN ---
<Everette Lu - Last Filed: 03/08/17 10:46> Subjective - Date & Time of Evaluation Date of Evaluation: 03/08/17 Time of Evaluation: 07:40 - Subjective Subjective: PGY4 GI Fellow Progress Note Patient seen and examined bedside this morning. The patient denies any new complaints and is feeling better each day. Tolerating diet withot issue but does have poor appetite. No fever, chills overnight. 12 system ROS performed and negative except where stated. Objective - Vital Signs/Intake and Output Vital Signs (last 24 hours): Temp Pulse Resp BP Pulse Ox 98.7 F 83 18 144/86 98 03/07/17 18:15 03/07/17 18:15 03/07/17 18:15 03/07/17 18:15 03/07/17 18:15 Intake and Output: 03/08/17 03/08/17 06:59 18:59 Intake Total 960 Output Total 600 Balance 360 - Medications Medications: Current Medications Enoxaparin Sodium (Lovenox) 40 mg SC DAILY [facility] PRN Reason: Protocol Last Admin: 03/05/17 10:17 Dose: Not Given Hydromorphone HCl (Dilaudid) 0.5 mg IVP Q4H PRN PRN Reason: Pain, moderate (4-7) Last Admin: 03/08/17 03:21 Dose: 0.5 mg Sodium Chloride (Sodium Chloride 0.9%) 1,000 mls @ 125 mls/hr IV .Q8H [facility] Last Admin: 03/08/17 06:57 Dose: 125 mls/hr Meropenem 1g/NS 100mL IVPB (Meropenem 1g/Ns 100ml Ivpb) 1 gm in 100 mls @ 100 mls/hr IVPB Q8 [facility] PRN Reason: Protocol Stop: 03/12/17 22:01 Last Admin: 03/08/17 06:57 Dose: 100 mls/hr Ondansetron HCl (Zofran Inj) 4 mg IVP ONCE PRN PRN Reason: Nausea/Vomiting Pantoprazole Sodium (Protonix Inj) 40 mg IVP DAILY [facility] Last Admin: 03/07/17 09:50 Dose: 40 mg Phytonadione (Vitamin K Tab) 5 mg PO DAILY [facility] Last Admin: 03/07/17 09:51 Dose: 5 mg - Labs Labs: 03/07/17 05:40 03/07/17 07:50 PT 16.1 Seconds (9.9-11.8) H 03/05/17 05:15 INR 1.49 (0.93-1.08) H 03/05/17 05:15 APTT 43.5 Seconds (23.7-30.8) H 03/04/17 14:35 - Constitutional Appears: Non-toxic, No Acute Distress - Eye Exam Eye Exam: EOMI, PERRL, Scleral icterus - ENT Exam ENT Exam: Mucous Membranes Moist - Respiratory Exam Respiratory Exam: Clear to Ausculation Bilateral. absent: Rales, Rhonchi, Wheezes - Cardiovascular Exam Cardiovascular Exam: RRR, +S1, +S2 - GI/Abdominal Exam GI & Abdominal Exam: Soft, Normal Bowel Sounds. absent: Distended, Firm, Guarding, Rigid, Tenderness, Organomegaly - Extremities Exam Extremities Exam: Normal Inspection. absent: Pedal Edema - Neurological Exam Neurological Exam: Alert, Awake, Oriented x3 - Psychiatric Exam Psychiatric exam: Normal Affect, Normal Mood - Skin Skin Exam: Dry, Warm Assessment and Plan - Assessment and Plan (Free Text) Assessment: Patient is a 56yo male with known history of pancreatic adenocarcinoma who presented to the ED for abnormal lab work and abdominal pain. -Sepsis, acute cholangitis with Kelbsiella pneumoniae -Pancreatic adenocarcinoma -Obstructive jaundice and hyperbilirubinemia 2/2 above -Transaminasemia 2/2 above, improved -Coagulopathy 2/2 obstructive biliary disease Plan: -Klebsiella growing in blood cultures, ID following, pt on Merem -S/P ERCP POD#3 with fully covered metal stent placement; LFTs improved significantly -Await pathology results from IR biopsy of liver lesion -Per oncology - if metastatic dz present, systemic chemo; if not, referral for Whipple -Patient still seeking 2nd oncology opinion from OSH -Continue to monitor clinical course -Diet as tolerated -Analgesia as needed; consider addition of Ultram -Check INR tomorrow AM <Yvonne Cervantes - Last Filed: 03/08/17 13:09> Objective - Vital Signs/Intake and Output Vital Signs (last 24 hours): Temp Pulse Resp BP Pulse Ox 98.5 F 72 20 144/83 97 03/08/17 08:00 03/08/17 08:00 03/08/17 08:00 03/08/17 08:00 03/08/17 08:00 Intake and Output: 03/08/17 03/08/17 06:59 18:59 Intake Total 960 Output Total 600 Balance 360 - Medications Medications: Current Medications Enoxaparin Sodium (Lovenox) 40 mg SC DAILY [facility] PRN Reason: Protocol Last Admin: 03/08/17 10:25 Dose: 40 mg Hydromorphone HCl (Dilaudid) 0.5 mg IVP Q4H PRN PRN Reason: Pain, moderate (4-7) Last Admin: 03/08/17 12:44 Dose: 0.5 mg Sodium Chloride (Sodium Chloride 0.9%) 1,000 mls @ 125 mls/hr IV .Q8H [facility] Last Admin: 03/08/17 11:37 Dose: Not Given Meropenem 1g/NS 100mL IVPB (Meropenem 1g/Ns 100ml Ivpb) 1 gm in 100 mls @ 100 mls/hr IVPB Q8 [facility] PRN Reason: Protocol Stop: 03/12/17 22:01 Last Admin: 03/08/17 06:57 Dose: 100 mls/hr Ondansetron HCl (Zofran Inj) 4 mg IVP ONCE PRN PRN Reason: Nausea/Vomiting Pantoprazole Sodium (Protonix Inj) 40 mg IVP DAILY [facility] Last Admin: 03/08/17 10:26 Dose: 40 mg Phytonadione (Vitamin K Tab) 5 mg PO DAILY [facility] Last Admin: 03/08/17 10:27 Dose: 5 mg - Labs Labs: 03/08/17 07:25 03/08/17 07:25 PT 16.1 Seconds (9.9-11.8) H 03/05/17 05:15 INR 1.49 (0.93-1.08) H 03/05/17 05:15 APTT 43.5 Seconds (23.7-30.8) H 03/04/17 14:35 Attending/Attestation - Attestation I have personally seen and examined this patient.: Yes I have fully participated in the care of the patient.: Yes I have reviewed all pertinent clinical information, including history, physical exam and plan: Yes Notes (Text): Patient seen and examined. Agree with note as documented above with the following additions/exceptions. This is a 56 YO male with history of pancreatic adenocarcinoma who is admitted with sepsis due to cholangitis with klebsiella bacteremia, s/p ERCP with metal stent placement. He continues to improve, WBC slowly downtrending, T bili improving. He is tolerating diet without incident. Imaging shows new liver lesions, s/p IR guided biopsy (r/o mets versus abscess). Continue supportive care. Continue antibiotic therapy as per infectious disease. Follow up biopsy results. 03/08/17 13:07
[2017-03-08 07:35] LABS: BASO # 0.03 K/mm3 (0.0-2.0); BASO % 0.2 % (0.0-3.0); EOS # 0.2 (0.0-0.7); EOS % 0.9 % (1.5-5.0); GRAN # 12.98 (1.4-6.5); GRAN % 72.3 % (50.0-68.0); HEMATOCRIT 26.8 % (42.0-52.0); LYMPH # 3.1 (1.2-3.4); MEAN CORPUSCULAR HEMOGLOBIN 28.5 pg (25.0-35.0); MEAN PLATELET VOLUME 10.1 fl (7.0-11.0); MONO # 1.7 (0.1-0.6); MONO % 9.6 % (1.0-6.0); PLATELET COUNT 665 10^3/uL (120.0-450.0); RED CELL DISTRIBUTION WIDTH 14.3 % (11.5-14.5)
[2017-03-08 07:50] LABS: ALB/GLOB RATIO 0.7 (1.1-1.8); ALKALINE PHOSPHATASE 244 U/L (38-133); ALT/SGPT 56 U/L (7-56); AST/SGOT 51 U/L (15-59); BILIRUBIN,TOTAL 4.9 mg/dL (0.2-1.3); BLOOD UREA NITROGEN 7 mg/dL (7-21); CALCIUM 8.3 mg/dL (8.4-10.5); CARBON DIOXIDE 26 mmol/L (21-33); CHLORIDE 104 mmol/L (98-107); GFR AFRICAN-AMERICAN > 60; GLUCOSE,RANDOM 93 mg/dL (70-110); POTASSIUM 3.5 mmol/L (3.6-5.0); SODIUM 135 mmol/L (132-148); TOTAL PROTEIN 5.8 g/dL (5.8-8.3)
[2017-03-08] MEDS: Enoxaparin 40 mg Syringe SC SCH (10:25)
--- NOTE | 2017-03-08 11:28 | CP.PCM.PN ---
Subjective - Date & Time of Evaluation Date of Evaluation: 03/08/17 Time of Evaluation: 09:10 - Subjective Subjective: Patient is feeling better, denies abdominal pain, nausea or vomiting Objective - Vital Signs/Intake and Output Vital Signs (last 24 hours): Temp Pulse Resp BP Pulse Ox 98.5 F 72 20 144/83 97 03/08/17 08:00 03/08/17 08:00 03/08/17 08:00 03/08/17 08:00 03/08/17 08:00 Intake and Output: 03/08/17 03/08/17 06:59 18:59 Intake Total 960 Output Total 600 Balance 360 - Medications Medications: Current Medications Enoxaparin Sodium (Lovenox) 40 mg SC DAILY [facility] PRN Reason: Protocol Last Admin: 03/08/17 10:25 Dose: 40 mg Hydromorphone HCl (Dilaudid) 0.5 mg IVP Q4H PRN PRN Reason: Pain, moderate (4-7) Last Admin: 03/08/17 08:22 Dose: 0.5 mg Sodium Chloride (Sodium Chloride 0.9%) 1,000 mls @ 125 mls/hr IV .Q8H [facility] Last Admin: 03/08/17 10:26 Dose: 125 mls/hr Meropenem 1g/NS 100mL IVPB (Meropenem 1g/Ns 100ml Ivpb) 1 gm in 100 mls @ 100 mls/hr IVPB Q8 [facility] PRN Reason: Protocol Stop: 03/12/17 22:01 Last Admin: 03/08/17 06:57 Dose: 100 mls/hr Ondansetron HCl (Zofran Inj) 4 mg IVP ONCE PRN PRN Reason: Nausea/Vomiting Pantoprazole Sodium (Protonix Inj) 40 mg IVP DAILY [facility] Last Admin: 03/08/17 10:26 Dose: 40 mg Phytonadione (Vitamin K Tab) 5 mg PO DAILY [facility] Last Admin: 03/08/17 10:27 Dose: 5 mg - Labs Labs: 03/08/17 07:25 03/08/17 07:25 PT 16.1 Seconds (9.9-11.8) H 03/05/17 05:15 INR 1.49 (0.93-1.08) H 03/05/17 05:15 APTT 43.5 Seconds (23.7-30.8) H 03/04/17 14:35 - Constitutional Appears: Non-toxic, No Acute Distress - Head Exam Head Exam: NORMAL INSPECTION, NORMOCEPHALIC - Eye Exam Eye Exam: Scleral icterus - Neck Exam Neck Exam: Normal Inspection - Respiratory Exam Respiratory Exam: Clear to Ausculation Bilateral - Cardiovascular Exam Cardiovascular Exam: REGULAR RHYTHM Additional comments: no rub or gallop - Extremities Exam Extremities Exam: Full ROM - Neurological Exam Neurological Exam: Alert, Awake, CN II-XII Intact (non focal), Oriented x3 Assessment and Plan - Assessment and Plan (Free Text) Plan: 56 M with h/o pancreatitis, pancreatic adenoCA s/p ERCP with stent placement admitted with fever, chills, weakness, & recurrent jaundice. Pt underwent ERCP w/ plastic stent removal and insertion of wire biliary stent. Pt is s/p IR liver biopsy. 1.Obstructive Jaundice due to CA Pancrease CT - Pancreatic protocol CT 03/04/2017: large mass in pancreatic head severe dilatation of CBD and intrahepatic ducts despite stent.Patient underwent ERCP and stent replacement LFT are coming down.Patient is tolerating diet 2.Sepsis due to K.Pneumonia Bacteremia due to Cholangitis -WBC trending down, -on Meropenem 1 gm as per ID 3.Liver Lesion -SP liver biopsy 03/06/17 , results pending 4.GI Prophylaxis with PPI 5. DVT lovenox with lovenox. Management plan was discussed in detail with patient Education was provided.
--- NOTE | 2017-03-08 12:41 | CP.PCM.PN ---
Subjective - Date & Time of Evaluation Date of Evaluation: 03/08/17 Time of Evaluation: 10:20 - Subjective Subjective: Comfortable, no abodminal pain , no nausea, no fevers. Objective - Vital Signs/Intake and Output Vital Signs (last 24 hours): Temp Pulse Resp BP Pulse Ox 98.5 F 72 20 144/83 97 03/08/17 08:00 03/08/17 08:00 03/08/17 08:00 03/08/17 08:00 03/08/17 08:00 Intake and Output: 03/08/17 03/08/17 06:59 18:59 Intake Total 960 Output Total 600 Balance 360 - Medications Medications: Current Medications Enoxaparin Sodium (Lovenox) 40 mg SC DAILY [facility] PRN Reason: Protocol Last Admin: 03/08/17 10:25 Dose: 40 mg Hydromorphone HCl (Dilaudid) 0.5 mg IVP Q4H PRN PRN Reason: Pain, moderate (4-7) Last Admin: 03/08/17 08:22 Dose: 0.5 mg Sodium Chloride (Sodium Chloride 0.9%) 1,000 mls @ 125 mls/hr IV .Q8H [facility] Last Admin: 03/08/17 11:37 Dose: Not Given Meropenem 1g/NS 100mL IVPB (Meropenem 1g/Ns 100ml Ivpb) 1 gm in 100 mls @ 100 mls/hr IVPB Q8 [facility] PRN Reason: Protocol Stop: 03/12/17 22:01 Last Admin: 03/08/17 06:57 Dose: 100 mls/hr Ondansetron HCl (Zofran Inj) 4 mg IVP ONCE PRN PRN Reason: Nausea/Vomiting Pantoprazole Sodium (Protonix Inj) 40 mg IVP DAILY [facility] Last Admin: 03/08/17 10:26 Dose: 40 mg Phytonadione (Vitamin K Tab) 5 mg PO DAILY [facility] Last Admin: 03/08/17 10:27 Dose: 5 mg - Labs Labs: 03/08/17 07:25 03/08/17 07:25 PT 16.1 Seconds (9.9-11.8) H 03/05/17 05:15 INR 1.49 (0.93-1.08) H 03/05/17 05:15 APTT 43.5 Seconds (23.7-30.8) H 03/04/17 14:35 - Constitutional Appears: Non-toxic, No Acute Distress - Head Exam Head Exam: NORMAL INSPECTION - ENT Exam ENT Exam: Mucous Membranes Moist - Neck Exam Neck Exam: absent: Lymphadenopathy, Meningismus - Respiratory Exam Respiratory Exam: Decreased Breath Sounds - Cardiovascular Exam Cardiovascular Exam: +S1, +S2 - GI/Abdominal Exam GI & Abdominal Exam: Soft. absent: Tenderness Assessment and Plan - Assessment and Plan (Free Text) Plan: Assessment Sepsis secondary to gram negative bacilli bacteremia due to acute cholangitis S/ P ERCP and stent placement POD #4 pancreatic cancer Plan continue merrem day 4 pending identification and sensitivities of the gram negative bacilli in the blood; follow up repeat blood cx done yesterday will monitor clinically
--- NOTE | 2017-03-08 14:35 | CP.PCM.PN ---
Subjective - Date & Time of Evaluation Date of Evaluation: 03/08/17 Time of Evaluation: 14:00 - Subjective Subjective: No complaints. Objective - Vital Signs/Intake and Output Vital Signs (last 24 hours): Temp Pulse Resp BP Pulse Ox 98.5 F 72 20 144/83 97 03/08/17 08:00 03/08/17 08:00 03/08/17 08:00 03/08/17 08:00 03/08/17 08:00 Intake and Output: 03/08/17 03/08/17 06:59 18:59 Intake Total 960 1000 Output Total 600 2 Balance 360 998 - Medications Medications: Current Medications Enoxaparin Sodium (Lovenox) 40 mg SC DAILY [facility] PRN Reason: Protocol Last Admin: 03/08/17 10:25 Dose: 40 mg Hydromorphone HCl (Dilaudid) 0.5 mg IVP Q4H PRN PRN Reason: Pain, moderate (4-7) Last Admin: 03/08/17 12:44 Dose: 0.5 mg Sodium Chloride (Sodium Chloride 0.9%) 1,000 mls @ 125 mls/hr IV .Q8H [facility] Last Admin: 03/08/17 11:37 Dose: Not Given Meropenem 1g/NS 100mL IVPB (Meropenem 1g/Ns 100ml Ivpb) 1 gm in 100 mls @ 100 mls/hr IVPB Q8 [facility] PRN Reason: Protocol Stop: 03/12/17 22:01 Last Admin: 03/08/17 14:04 Dose: 100 mls/hr Ondansetron HCl (Zofran Inj) 4 mg IVP ONCE PRN PRN Reason: Nausea/Vomiting Pantoprazole Sodium (Protonix Inj) 40 mg IVP DAILY [facility] Last Admin: 03/08/17 10:26 Dose: 40 mg Phytonadione (Vitamin K Tab) 5 mg PO DAILY [facility] Last Admin: 03/08/17 10:27 Dose: 5 mg - Labs Labs: 03/08/17 07:25 03/08/17 07:25 PT 16.1 Seconds (9.9-11.8) H 03/05/17 05:15 INR 1.49 (0.93-1.08) H 03/05/17 05:15 APTT 43.5 Seconds (23.7-30.8) H 03/04/17 14:35 - Head Exam Head Exam: ATRAUMATIC - Eye Exam Eye Exam: Normal appearance - ENT Exam ENT Exam: Mucous Membranes Dry - Respiratory Exam Respiratory Exam: NORMAL BREATHING PATTERN - Cardiovascular Exam Cardiovascular Exam: +S1, +S2 - GI/Abdominal Exam GI & Abdominal Exam: Normal Bowel Sounds - Extremities Exam Extremities Exam: Normal Inspection Assessment and Plan (1) Jaundice Assessment & Plan: improving post ERCP and stent exchange Status: Acute (2) Leucocytosis Assessment & Plan: on antibiotics for cholangitis and bacteremia Status: Acute (3) Liver lesion Assessment & Plan: abscess vs metastatic disease s/p IR liver lesion biopsy Status: Acute (4) Anemia Assessment & Plan: chronic disease Status: Acute (5) Pancreatic cancer Assessment & Plan: treatment dependant on liver lesion biopsy results Status: Acute
[2017-03-09] MEDS: Sodium Chloride 0.9% 1,000 ML IV SCH (01:38)
[2017-03-09] MEDS: HYDROmorphone 0.5 mg/0.5 ml ISec IVP PRN ×6 (02:12→22:06)
[2017-03-09] MEDS: Meropenem 1g/NS 100mL IVPB 1 GM/100 ML PIGGYBACK IVPB SCH (05:25)
[2017-03-09 07:23] LABS: ADD MANUAL DIFF? NO
--- NOTE | 2017-03-09 07:31 | CP.PCM.PN ---
<Everette Lu - Last Filed: 03/09/17 07:52> Subjective - Date & Time of Evaluation Date of Evaluation: 03/09/17 Time of Evaluation: 07:29 - Subjective Subjective: PGY4 GI Fellow Progress Note Patient seen and examined bedside this morning. The patient admits to feeling well today and has no complaints. No events overnight. Minimal abdominal pain today. 12 system ROS performed and negative except where stated. Objective - Vital Signs/Intake and Output Vital Signs (last 24 hours): Temp Pulse Resp BP Pulse Ox 97.6 F 74 20 149/82 98 03/08/17 16:00 03/08/17 16:00 03/08/17 16:00 03/08/17 16:00 03/08/17 16:00 Intake and Output: 03/09/17 03/09/17 06:59 18:59 Intake Total 1080 Output Total 1600 Balance -520 - Medications Medications: Current Medications Enoxaparin Sodium (Lovenox) 40 mg SC DAILY [facility] PRN Reason: Protocol Last Admin: 03/08/17 10:25 Dose: 40 mg Hydromorphone HCl (Dilaudid) 0.5 mg IVP Q4H PRN PRN Reason: Pain, moderate (4-7) Last Admin: 03/09/17 06:11 Dose: 0.5 mg Sodium Chloride (Sodium Chloride 0.9%) 1,000 mls @ 125 mls/hr IV .Q8H [facility] Last Admin: 03/09/17 01:38 Dose: 125 mls/hr Meropenem 1g/NS 100mL IVPB (Meropenem 1g/Ns 100ml Ivpb) 1 gm in 100 mls @ 100 mls/hr IVPB Q8 [facility] PRN Reason: Protocol Stop: 03/12/17 22:01 Last Admin: 03/09/17 05:25 Dose: 100 mls/hr Ondansetron HCl (Zofran Inj) 4 mg IVP ONCE PRN PRN Reason: Nausea/Vomiting Pantoprazole Sodium (Protonix Inj) 40 mg IVP DAILY [facility] Last Admin: 03/08/17 10:26 Dose: 40 mg Phytonadione (Vitamin K Tab) 5 mg PO DAILY [facility] Last Admin: 03/08/17 10:27 Dose: 5 mg - Labs Labs: 03/08/17 07:25 03/08/17 07:25 PT 16.1 Seconds (9.9-11.8) H 03/05/17 05:15 INR 1.49 (0.93-1.08) H 03/05/17 05:15 APTT 43.5 Seconds (23.7-30.8) H 03/04/17 14:35 - Constitutional Appears: Non-toxic, No Acute Distress - Eye Exam Eye Exam: EOMI, PERRL - ENT Exam ENT Exam: Mucous Membranes Moist - Respiratory Exam Respiratory Exam: Clear to Ausculation Bilateral. absent: Rales, Rhonchi, Wheezes - Cardiovascular Exam Cardiovascular Exam: RRR, +S1, +S2 - GI/Abdominal Exam GI & Abdominal Exam: Soft, Normal Bowel Sounds. absent: Distended, Firm, Guarding, Rigid, Tenderness, Organomegaly - Extremities Exam Extremities Exam: Normal Inspection. absent: Pedal Edema - Neurological Exam Neurological Exam: Alert, Awake, Oriented x3 - Psychiatric Exam Psychiatric exam: Normal Affect, Normal Mood - Skin Skin Exam: Dry, Warm Assessment and Plan - Assessment and Plan (Free Text) Assessment: Patient is a 56yo male with known history of pancreatic adenocarcinoma who presented to the ED for abnormal lab work and abdominal pain. -Sepsis, acute cholangitis with Kelbsiella pneumoniae -Pancreatic adenocarcinoma -Obstructive jaundice and hyperbilirubinemia 2/2 above -Transaminasemia 2/2 above, improved -Coagulopathy 2/2 obstructive biliary disease Plan: -Awaiting AM lab work -Repeat blood cultures negative x2 -Continue on Merem per ID -Awaiting pathology results from IR biopsy of liver lesion -Per oncology - if metastatic dz present, systemic chemo; if not, referral for Whipple -Patient still seeking 2nd oncology opinion from OSH -Tolerating regular diet -OK to D/C from GI standpoint; plan regarding abx per ID <Yvonne Cervantes - Last Filed: 03/09/17 08:46> Objective - Vital Signs/Intake and Output Vital Signs (last 24 hours): Temp Pulse Resp BP Pulse Ox 97.6 F 74 20 149/82 98 03/08/17 16:00 03/08/17 16:00 03/08/17 16:00 03/08/17 16:00 03/08/17 16:00 Intake and Output: 03/09/17 03/09/17 06:59 18:59 Intake Total 5780 Output Total 4202 Balance 1578 - Medications Medications: Current Medications Enoxaparin Sodium (Lovenox) 40 mg SC DAILY [facility] PRN Reason: Protocol Last Admin: 03/08/17 10:25 Dose: 40 mg Hydromorphone HCl (Dilaudid) 0.5 mg IVP Q4H [facility] PRN Reason: Pain, moderate (4-7) Last Admin: 03/09/17 06:11 Dose: 0.5 mg Sodium Chloride (Sodium Chloride 0.9%) 1,000 mls @ 125 mls/hr IV .Q8H [facility] Last Admin: 03/09/17 01:38 Dose: 125 mls/hr Meropenem 1g/NS 100mL IVPB (Meropenem 1g/Ns 100ml Ivpb) 1 gm in 100 mls @ 100 mls/hr IVPB Q8 [facility] PRN Reason: Protocol Stop: 03/12/17 22:01 Last Admin: 03/09/17 05:25 Dose: 100 mls/hr Ondansetron HCl (Zofran Inj) 4 mg IVP ONCE PRN PRN Reason: Nausea/Vomiting Pantoprazole Sodium (Protonix Inj) 40 mg IVP DAILY [facility] Last Admin: 03/08/17 10:26 Dose: 40 mg Phytonadione (Vitamin K Tab) 5 mg PO DAILY [facility] Last Admin: 03/08/17 10:27 Dose: 5 mg - Labs Labs: 03/09/17 07:00 03/09/17 07:00 PT 12.4 Seconds (9.9-11.8) H 03/09/17 07:00 INR 1.15 (0.93-1.08) H 03/09/17 07:00 APTT 43.5 Seconds (23.7-30.8) H 03/04/17 14:35 Attending/Attestation - Attestation I have personally seen and examined this patient.: Yes I have fully participated in the care of the patient.: Yes I have reviewed all pertinent clinical information, including history, physical exam and plan: Yes Notes (Text): Patient seen and examined. Agree with note as documented above with the following additions/exceptions. This is a 56 YO male with history of pancreatic adenocarcinoma who is admitted with sepsis due to cholangitis with klebsiella bacteremia, s/p ERCP with metal stent placement. He has no new complaints. No abdominal pain. He is tolerating diet without incident. Imaging shows new liver lesions, s/p IR guided biopsy (r/o mets versus abscess). Continue supportive care. Continue antibiotic therapy as per infectious disease, follow up blood cx. Follow up liver biopsy results. Diet as tolerated. 03/09/17 08:46
[2017-03-09 07:37] LABS: INR 1.15 (0.93-1.08)
[2017-03-09 07:38] LABS: BASO # 0.03 K/mm3 (0.0-2.0); BASO % 0.2 % (0.0-3.0); EOS # 0.2 (0.0-0.7); EOS % 1.2 % (1.5-5.0); GRAN # 10.76 (1.4-6.5); GRAN % 69.8 % (50.0-68.0); HEMATOCRIT 27.3 % (42.0-52.0); LYMPH # 2.7 (1.2-3.4); LYMPH % 17.6 % (22.0-35.0); MEAN CELL VOLUME 84.8 fL (80.0-105.0); MEAN CORPUSCULAR HEMOGLOBIN 29.2 pg (25.0-35.0); MEAN CORPUSCULAR HGB CONC 34.4 g/dl (31.0-37.0); MEAN PLATELET VOLUME 9.8 fl (7.0-11.0); MONO # 1.7 (0.1-0.6); MONO % 11.2 % (1.0-6.0); RED CELL DISTRIBUTION WIDTH 14.3 % (11.5-14.5)
[2017-03-09 07:45] LABS: ALB/GLOB RATIO 0.7 (1.1-1.8); ALKALINE PHOSPHATASE 236 U/L (38-133); ALT/SGPT 58 U/L (7-56); AST/SGOT 48 U/L (15-59); BILIRUBIN,TOTAL 4.6 mg/dL (0.2-1.3); BLOOD UREA NITROGEN 6 mg/dL (7-21); CALCIUM 8.3 mg/dL (8.4-10.5); CARBON DIOXIDE 29 mmol/L (21-33); CHLORIDE 102 mmol/L (98-107); GFR AFRICAN-AMERICAN > 60; GLUCOSE,RANDOM 99 mg/dL (70-110); POTASSIUM 3.7 mmol/L (3.6-5.0); SODIUM 136 mmol/L (132-148); TOTAL PROTEIN 6.2 g/dL (5.8-8.3)
[2017-03-09 07:47] LABS: PLATELET COUNT 766 10^3/uL (120.0-450.0)
[2017-03-09 07:48] LABS: WHITE BLOOD COUNT 15.4 10^3/ul (4.5-11.0)
[2017-03-09] MEDS: Enoxaparin 40 mg Syringe SC SCH (09:45)
[2017-03-09] MEDS ORDERED: cefTRIAXone 2 GM IN NS 2 GM/100 ML BAG IVPB STA (11:06)
--- NOTE | 2017-03-09 11:42 | CP.PCM.PN ---
Subjective - Date & Time of Evaluation Date of Evaluation: 03/09/17 Time of Evaluation: 10:00 - Subjective Subjective: Patient was seen and examined with medical doctor md/medical director. Patient is feeling better, denies headache, dizziness or chest pain.He is tolerating diet. Objective - Vital Signs/Intake and Output Vital Signs (last 24 hours): Temp Pulse Resp BP Pulse Ox 98.4 F 78 20 158/92 H 108 H 03/09/17 08:00 03/09/17 08:00 03/09/17 08:00 03/09/17 08:00 03/09/17 08:00 Intake and Output: 03/09/17 03/09/17 06:59 18:59 Intake Total 5780 Output Total 4202 Balance 1578 - Medications Medications: Current Medications Enoxaparin Sodium (Lovenox) 40 mg SC DAILY PENNY PRN Reason: Protocol Last Admin: 03/09/17 09:45 Dose: 40 mg Hydromorphone HCl (Dilaudid) 0.5 mg IVP Q4H PRN PRN Reason: Pain, moderate (4-7) Last Admin: 03/09/17 09:45 Dose: 0.5 mg Ceftriaxone Sodium (Rocephin 2 Gm Ivpb) 2 gm in 100 mls @ 100 mls/hr IVPB STAT STA PRN Reason: Protocol Stop: 03/09/17 12:05 Ondansetron HCl (Zofran Inj) 4 mg IVP ONCE PRN PRN Reason: Nausea/Vomiting Pantoprazole Sodium (Protonix Inj) 40 mg IVP DAILY [facility] Last Admin: 03/09/17 09:45 Dose: 40 mg - Labs Labs: 03/09/17 07:00 03/09/17 07:00 PT 12.4 Seconds (9.9-11.8) H 03/09/17 07:00 INR 1.15 (0.93-1.08) H 03/09/17 07:00 APTT 43.5 Seconds (23.7-30.8) H 03/04/17 14:35 - Constitutional Appears: Non-toxic, No Acute Distress - Head Exam Head Exam: NORMAL INSPECTION, NORMOCEPHALIC - Eye Exam Eye Exam: Scleral icterus - Respiratory Exam Respiratory Exam: Clear to Ausculation Bilateral, NORMAL BREATHING PATTERN - Cardiovascular Exam Cardiovascular Exam: REGULAR RHYTHM - GI/Abdominal Exam GI & Abdominal Exam: Soft, Normal Bowel Sounds Additional comments: no tenderness - Extremities Exam Extremities Exam: Normal Inspection Additional comments: no cynosis or clubbing - Neurological Exam Neurological Exam: Alert, Awake, Oriented x3 Additional comments: Non focal Assessment and Plan - Assessment and Plan (Free Text) Plan: 56 M with h/o pancreatitis, pancreatic adenocarcinoma SP ERCP with stent placement admitted with fever, chills, weakness, & recurrent jaundice. Pt underwent ERCP w/ plastic stent removal and insertion of wire biliary stent. Pt s/p IR liver biopsy.Patient grew K.Pneumonia bacteremia, repeat blood cultures are negative.WBC is comg down 1. Obstructive Jaundice due to CA Pancrease CT - Pancreatic protocol CT 03/04/2017: large mass in pancreatic head severe dilatation of CBD and intrahepatic ducts despite stent.Patient underwent ERCP and stent replacement LFT are coming down. Patient is tolerating diet 2.Sepsis due to K.Pneumonia Bacteremia due to Cholangitis -WBC trending down, -was treated with Meropenem 1 gm as per ID, plan to switch to give Rocephin 1 gram today and start oral levofloxacin for 10 days to complete treatment of K.Pneumonia bacteremia tomorrow. 3.Liver Lesion -SP liver biopsy 03/06/17 , results pending, oncology and GI folowing 4.Hyponatremia, resolved. Will discontinue IV fluid 4.GI Prophylaxis with PPI 5. DVT lovenox with lovenox. Management plan was discussed in detail with patient Education was provided.
--- NOTE | 2017-03-09 19:49 | CP.PCM.PN ---
Subjective - Date & Time of Evaluation Date of Evaluation: 03/09/17 Time of Evaluation: 11:30 - Subjective Subjective: Comfortable in bed, no fevers, no abdominal pain, feeling better. Objective - Vital Signs/Intake and Output Vital Signs (last 24 hours): Temp Pulse Resp BP Pulse Ox 98.2 F 80 20 150/80 108 H 03/09/17 16:00 03/09/17 16:00 03/09/17 16:00 03/09/17 16:00 03/09/17 08:00 Intake and Output: 03/09/17 03/10/17 18:59 06:59 Intake Total 2190 Output Total 2376 Balance -186 - Medications Medications: Current Medications Enoxaparin Sodium (Lovenox) 40 mg SC DAILY PENNY PRN Reason: Protocol Last Admin: 03/09/17 09:45 Dose: 40 mg Hydromorphone HCl (Dilaudid) 0.5 mg IVP Q4H PRN PRN Reason: Pain, moderate (4-7) Last Admin: 03/09/17 17:44 Dose: 0.5 mg Ondansetron HCl (Zofran Inj) 4 mg IVP ONCE PRN PRN Reason: Nausea/Vomiting Pantoprazole Sodium (Protonix Inj) 40 mg IVP DAILY [facility] Last Admin: 03/09/17 09:45 Dose: 40 mg - Labs Labs: 03/09/17 07:00 03/09/17 07:00 PT 12.4 Seconds (9.9-11.8) H 03/09/17 07:00 INR 1.15 (0.93-1.08) H 03/09/17 07:00 APTT 43.5 Seconds (23.7-30.8) H 03/04/17 14:35 - Constitutional Appears: Non-toxic, No Acute Distress - Neck Exam Neck Exam: absent: Lymphadenopathy, Meningismus - Respiratory Exam Respiratory Exam: Decreased Breath Sounds - Cardiovascular Exam Cardiovascular Exam: +S1, +S2 - GI/Abdominal Exam GI & Abdominal Exam: Soft. absent: Tenderness Assessment and Plan - Assessment and Plan (Free Text) Plan: Assessment Sepsis secondary to Klebsiella bacteremia due to acute cholangitis S/P ERCP and stent placement POD #5 pancreatic cancer Plan switched antibiotics to Rocephin; repeat blood cx done 03/07 are negative Discussed with Dr. Irfan - when ready for discharge, he can be switched to PO LEvaquin for another 10 days (QTc on EKG is less than 500 ms) will monitor clinically while the patient is in the hospital
[2017-03-10] MEDS: HYDROmorphone 0.5 mg/0.5 ml ISec IVP PRN ×4 (02:13→14:30)
[2017-03-10 06:54] LABS: ADD MANUAL DIFF? NO
[2017-03-10 07:14] LABS: BASO # 0.04 K/mm3 (0.0-2.0); BASO % 0.3 % (0.0-3.0); EOS # 0.2 (0.0-0.7); EOS % 1.1 % (1.5-5.0); GRAN # 9.97 (1.4-6.5); GRAN % 66.8 % (50.0-68.0); HEMATOCRIT 29.7 % (42.0-52.0); LYMPH # 2.7 (1.2-3.4); LYMPH % 18.3 % (22.0-35.0); MEAN CELL VOLUME 86.1 fL (80.0-105.0); MEAN CORPUSCULAR HEMOGLOBIN 29.9 pg (25.0-35.0); MEAN CORPUSCULAR HGB CONC 34.7 g/dl (31.0-37.0); MEAN PLATELET VOLUME 9.6 fl (7.0-11.0); MONO % 13.5 % (1.0-6.0); RED CELL DISTRIBUTION WIDTH 14.4 % (11.5-14.5); WHITE BLOOD COUNT 14.9 10^3/ul (4.5-11.0)
--- NOTE | 2017-03-10 07:18 | CP.PCM.PN ---
<HeatherjosueEverette cruz - Last Filed: 03/10/17 08:14> Subjective - Date & Time of Evaluation Date of Evaluation: 03/10/17 Time of Evaluation: 07:45 - Subjective Subjective: PGY4 GI Fellow Progress Note Patient seen and examined bedside this morning. The patient has no complaints at present. No fevers, chills, nausea, vomiting. Tolerating diet without issue. No events overnight. 12 system ROS performed and negative except where stated. Objective - Vital Signs/Intake and Output Vital Signs (last 24 hours): Temp Pulse Resp BP Pulse Ox 98.2 F 80 20 150/80 108 H 03/09/17 16:00 03/09/17 16:00 03/09/17 16:00 03/09/17 16:00 03/09/17 08:00 Intake and Output: 03/10/17 03/10/17 06:59 18:59 Intake Total 1020 Output Total 1950 Balance -930 - Medications Medications: Current Medications Enoxaparin Sodium (Lovenox) 40 mg SC DAILY PENNY PRN Reason: Protocol Last Admin: 03/09/17 09:45 Dose: 40 mg Hydromorphone HCl (Dilaudid) 0.5 mg IVP Q4H PRN PRN Reason: Pain, moderate (4-7) Last Admin: 03/10/17 06:27 Dose: 0.5 mg Ondansetron HCl (Zofran Inj) 4 mg IVP ONCE PRN PRN Reason: Nausea/Vomiting Pantoprazole Sodium (Protonix Ec Tab) 40 mg PO ACB PENNY - Labs Labs: 03/09/17 07:00 03/09/17 07:00 PT 12.4 Seconds (9.9-11.8) H 03/09/17 07:00 INR 1.15 (0.93-1.08) H 03/09/17 07:00 APTT 43.5 Seconds (23.7-30.8) H 03/04/17 14:35 - Constitutional Appears: Non-toxic, No Acute Distress - Eye Exam Eye Exam: EOMI, PERRL, Scleral icterus - ENT Exam ENT Exam: Mucous Membranes Moist - Respiratory Exam Respiratory Exam: Clear to Ausculation Bilateral. absent: Rales, Rhonchi, Wheezes - Cardiovascular Exam Cardiovascular Exam: RRR, +S1, +S2 - GI/Abdominal Exam GI & Abdominal Exam: Soft, Normal Bowel Sounds. absent: Distended, Firm, Guarding, Rigid, Tenderness, Organomegaly - Extremities Exam Extremities Exam: Normal Inspection. absent: Pedal Edema - Neurological Exam Neurological Exam: Alert, Awake, Oriented x3 - Psychiatric Exam Psychiatric exam: Normal Affect, Normal Mood - Skin Skin Exam: Dry, Warm Assessment and Plan - Assessment and Plan (Free Text) Assessment: Patient is a 56yo male with known history of pancreatic adenocarcinoma who presented to the ED for abnormal lab work and abdominal pain. -Sepsis, acute cholangitis with Kelbsiella pneumoniae; resolved -Pancreatic adenocarcinoma -Obstructive jaundice and hyperbilirubinemia 2/2 above, resolving -Transaminasemia 2/2 above, improved -Coagulopathy 2/2 obstructive biliary disease -Thrombocytosis, suspect reactive Plan: -Awaiting AM lab work -Repeat blood cultures negative x2, OK to D/C from ID standpoint on Levaquin PO -Switched from Merem to Rocephin -Pathology results pending from IR biopsy of liver lesion -Per oncology - if metastatic dz present, systemic chemo; if not, referral for [facility] -Patient still seeking 2nd oncology opinion from OSH -Tolerating regular diet without issue -OK to D/C from GI standpoint <Ramy Sequeira - Last Filed: 03/10/17 13:06> Objective - Vital Signs/Intake and Output Vital Signs (last 24 hours): Temp Pulse Resp BP Pulse Ox 98.3 F 66 18 150/90 100 03/10/17 07:30 03/10/17 07:30 03/10/17 07:30 03/10/17 07:30 03/10/17 07:30 Intake and Output: 03/10/17 03/10/17 06:59 18:59 Intake Total 1020 240 Output Total 1950 Balance -930 240 - Medications Medications: Current Medications Enoxaparin Sodium (Lovenox) 40 mg SC DAILY PENNY PRN Reason: Protocol Last Admin: 03/10/17 11:01 Dose: 40 mg Hydromorphone HCl (Dilaudid) 0.5 mg IVP Q4H PRN PRN Reason: Pain, moderate (4-7) Last Admin: 03/10/17 11:00 Dose: 0.5 mg Ceftriaxone Sodium (Rocephin 1 Gram Ivpb) 1 gm in 100 mls @ 100 mls/hr IVPB DAILY [facility] PRN Reason: Protocol Last Admin: 03/10/17 11:02 Dose: 100 mls/hr Ondansetron HCl (Zofran Inj) 4 mg IVP ONCE PRN PRN Reason: Nausea/Vomiting Pantoprazole Sodium (Protonix Ec Tab) 40 mg PO ACB [facility] Last Admin: 03/10/17 08:17 Dose: 40 mg - Labs Labs: 03/10/17 06:30 03/10/17 06:30 PT 12.4 Seconds (9.9-11.8) H 03/09/17 07:00 INR 1.15 (0.93-1.08) H 03/09/17 07:00 APTT 43.5 Seconds (23.7-30.8) H 03/04/17 14:35 Attending/Attestation - Attestation I have personally seen and examined this patient.: Yes I have fully participated in the care of the patient.: Yes I have reviewed all pertinent clinical information, including history, physical exam and plan: Yes Notes (Text): 03/10/17 13:03 56 year old male with h/o acute pancreatitis, pancreatic adenocarcinoma, biliary obstruction s/p ERCP with plastic stent admitted with acute cholangitis , also with liver lesions s/p biopsy. 1. Acute cholangitis 2. Klebsiella pneumoniae bacteremia 3. Liver lesions 4. Pancreatic adenocarcinoma Plan: -diet as tolerated -continue antibiotics per ID -if liver biopsies show cholangitis/abcess, rather than metastatic cancer, then would extend antibiotic course to 4-6 weeks total -s/p ERCP with covered metal stent placement with good drainage -ok to discharge from Gi standpoint -follow up with me for biopsy results
[2017-03-10 07:24] LABS: ALB/GLOB RATIO 0.7 (1.1-1.8); ALKALINE PHOSPHATASE 267 U/L (38-133); ALT/SGPT 65 U/L (7-56); AST/SGOT 59 U/L (15-59); BILIRUBIN,TOTAL 4.3 mg/dL (0.2-1.3); BLOOD UREA NITROGEN 6 mg/dL (7-21); CALCIUM 8.8 mg/dL (8.4-10.5); CARBON DIOXIDE 31 mmol/L (21-33); CHLORIDE 96 mmol/L (95-110); GFR AFRICAN-AMERICAN > 60; GLUCOSE,RANDOM 109 mg/dL (70-110); POTASSIUM 3.8 mmol/L (3.6-5.0); SODIUM 135 mmol/L (132-148); TOTAL PROTEIN 7.3 g/dL (5.8-8.3)
[2017-03-10 07:28] LABS: PLATELET COUNT 788 10^3/uL (120.0-450.0)
[2017-03-10] MEDS ORDERED: Pantoprazole 40 mg EC Tab PO SCH (07:30)
[2017-03-10 07:33] VITALS: BP 150/90; PULSE 66; RESP 18; TEMP 98.3; O2SAT 100
[2017-03-10] MEDS ORDERED: cefTRIAXone 1 gm 1 GM/100 ML BAG IVPB SCH (10:00)
[2017-03-10] MEDS: Enoxaparin 40 mg Syringe SC SCH (11:01)
--- NOTE | 2017-03-10 14:07 | CP.PCM.DIS ---
<Madhu Peng - Last Filed: 03/10/17 16:37> Provider - Provider Date of Admission: 03/04/17 15:04 Attending physician: Pedro Nguyen MD Primary care physician: NO PRIMARY CARE PROVIDER Consults: Infectious Disease Gastroenterology Time Spent in preparation of Discharge (in minutes): 45 Hospital Course - Lab Results Lab Results: Micro Results 03/07/17 10:15 Blood-Venous Blood Culture - Preliminary NO GROWTH AFTER 3 DAYS 03/07/17 10:00 Blood-Venous Blood Culture - Preliminary NO GROWTH AFTER 3 DAYS 03/05/17 10:50 Blood Blood Culture - Final Klebsiella Pneumoniae 03/05/17 10:50 Blood Gram Stain - Final 03/04/17 15:56 Urine,Clean Catch Urine Culture - Final No Growth (<1,000 CFU/ML) 03/05/17 11:10 Blood Blood Culture - Final Klebsiella Pneumoniae 03/05/17 11:10 Blood Gram Stain - Final Most Recent Lab Values WBC 14.9 10^3/ul (4.5-11.0) H 03/10/17 06:30 RBC 3.45 10^6/uL (3.5-6.1) L 03/10/17 06:30 Hgb 10.3 gm/dL (14.0-18.0) L 03/10/17 06:30 Hct 29.7 % (42.0-52.0) L 03/10/17 06:30 MCV 86.1 fL (80.0-105.0) 03/10/17 06:30 MCH 29.9 pg (25.0-35.0) 03/10/17 06:30 MCHC 34.7 g/dl (31.0-37.0) 03/10/17 06:30 RDW 14.4 % (11.5-14.5) 03/10/17 06:30 Plt Count 788 10^3/uL (120.0-450.0) H* 03/10/17 06:30 MPV 9.6 fl (7.0-11.0) 03/10/17 06:30 Gran % 66.8 % (50.0-68.0) 03/10/17 06:30 Lymph % (Auto) 18.3 % (22.0-35.0) L 03/10/17 06:30 [place] % (Auto) 13.5 % (1.0-6.0) H 03/10/17 06:30 Eos % (Auto) 1.1 % (1.5-5.0) L 03/10/17 06:30 Baso % (Auto) 0.3 % (0.0-3.0) 03/10/17 06:30 Gran # 9.97 (1.4-6.5) H 03/10/17 06:30 Lymph # 2.7 (1.2-3.4) 03/10/17 06:30 [place] # 2.0 (0.1-0.6) H 03/10/17 06:30 Eos # 0.2 (0.0-0.7) 03/10/17 06:30 Baso # 0.04 K/mm3 (0.0-2.0) 03/10/17 06:30 Neutrophils % (Manual) 78 % (50.0-70.0) H 03/07/17 05:40 Lymphocytes % (Manual) 20 % (22.0-35.0) L 03/07/17 05:40 Monocytes % (Manual) 2 % (1.0-6.0) 03/07/17 05:40 Platelet Evaluation High (NORMAL) 03/07/17 05:40 Hypochromasia 1+ 03/07/17 05:40 Anisocytosis (manual) 1+ 03/07/17 05:40 Microcytosis (manual) Slight 03/07/17 05:40 PT 12.4 Seconds (9.9-11.8) H 03/09/17 07:00 INR 1.15 (0.93-1.08) H 03/09/17 07:00 APTT 43.5 Seconds (23.7-30.8) H 03/04/17 14:35 pO2 202 mm/Hg (30-55) H 03/04/17 14:35 VBG pH 7.55 (7.32-7.43) H 03/04/17 14:35 VBG pCO2 35.0 (40-60) L 03/04/17 14:35 VBG HCO3 30.6 mmol/l (21-28) H 03/04/17 14:35 VBG Total CO2 31.7 mmol.L (22-28) H 03/04/17 14:35 VBG O2 Sat (Calc) 100.8 % (40-65) H 03/04/17 14:35 VBG Base Excess 7.9 mmol/L (0.0-2.0) H 03/04/17 14:35 VBG Potassium 3.3 mmol/L (3.6-5.2) L 03/04/17 14:35 Sodium 124.0 mmol/L (132-148) L 03/04/17 14:35 Chloride 91.0 mmol/L (98-107) L 03/04/17 14:35 Glucose 118 mg/dl (75-110) H 03/04/17 14:35 Lactate 1.4 mmol/L (0.7-2.1) 03/04/17 14:35 FiO2 21.0 % 03/04/17 14:35 Sodium 135 mmol/L (132-148) 03/10/17 06:30 Potassium 3.8 mmol/L (3.6-5.0) 03/10/17 06:30 Chloride 96 mmol/L (95-110) 03/10/17 06:30 Carbon Dioxide 31 mmol/L (21-33) 03/10/17 06:30 Anion Gap 12 (10-20) 03/10/17 06:30 BUN 6 mg/dL (7-21) L 03/10/17 06:30 Creatinine 0.8 mg/dL (0.5-1.4) 03/10/17 06:30 Est GFR ( Amer) > 60 03/10/17 06:30 Est GFR (Non-Af Amer) > 60 03/10/17 06:30 Random Glucose 109 mg/dL (70-110) 03/10/17 06:30 Calcium 8.8 mg/dL (8.4-10.5) 03/10/17 06:30 Phosphorus 1.8 mg/dL (2.5-4.5) L 03/04/17 14:35 Magnesium 2.5 mg/dL (1.7-2.2) H 03/05/17 05:15 Total Bilirubin 4.3 mg/dL (0.2-1.3) H 03/10/17 06:30 AST 59 U/L (15-59) 03/10/17 06:30 ALT 65 U/L (7-56) H 03/10/17 06:30 Alkaline Phosphatase 267 U/L (38-133) H 03/10/17 06:30 Total Protein 7.3 g/dL (5.8-8.3) 03/10/17 06:30 Albumin 3.0 g/dL (3.0-4.8) 03/10/17 06:30 Globulin 4.2 gm/dL 03/10/17 06:30 Albumin/Globulin Ratio 0.7 (1.1-1.8) L 03/10/17 06:30 Lipase 717 U/L (23-300) H 03/04/17 17:30 Thyroxine (T4) 9.1 ug/dL (5.5-11.0) 03/05/17 06:00 Total T3 0.68 ng/mL (0.97-1.69) L 03/05/17 06:00 TSH 3rd Generation 0.12 mIU/mL (0.46-4.68) L 03/05/17 05:15 Venous Blood Potassium 3.3 mmol/L (3.6-5.2) L 03/04/17 14:35 Urine Color Dark yellow (YELLOW) 03/04/17 15:56 Urine Appearance Clear (CLEAR) 03/04/17 15:56 Urine pH 6.5 (4.7-8.0) 03/04/17 15:56 Ur Specific [place] <= 1.005 (1.005-1.035) 03/04/17 15:56 Urine Protein 30 mg/dL (<30 mg/dL) H 03/04/17 15:56 Urine Glucose (UA) Negative mg/dL (NEGATIVE) 03/04/17 15:56 Urine Ketones Negative mg/dL (NEGATIVE) 03/04/17 15:56 Urine Blood Small (NEGATIVE) H 03/04/17 15:56 Urine Nitrate Negative (NEGATIVE) 03/04/17 15:56 Urine Bilirubin Large (NEGATIVE) H 03/04/17 15:56 Urine Urobilinogen 0.2 E.U./dL (<1 E.U./dL) 03/04/17 15:56 Ur Leukocyte Esterase Negative Humza/uL (NEGATIVE) 03/04/17 15:56 Urine RBC 0 - 2 /hpf (0-2) 03/04/17 15:56 Urine WBC Negative /hpf (0-6) 03/04/17 15:56 Ur Epithelial Cells 0 - 2 /hpf (0-5) 03/04/17 15:56 Urine Bacteria Neg (NEG) 03/04/17 15:56 Urine Osmolality 190 mosm/kg (50-645) 03/04/17 18:30 Ur Random Sodium 30 meq/L 03/04/17 17:40 Ur Random Potassium 5.6 meq/L 03/04/17 17:40 - Hospital Course Hospital Course: 03/04: 56M presents to the ED after abnormal laboratory results and complaints of jaundice. Patient has a known history of pancreatic adenocarcinoma. The patient had outpatient work up on 03/03/17 which demonstrated leukocytosis (20K) , hyperbilirubinemia of 14.9. Patient was referred to hospital ED for further evaluation. Patient denies any significant PMHx prior to being diagnosed w/ pancreatic CA. Patient was found to have a cystic lesion in the head of the pancreas. An EUS and FNA were done on the lesion. Patient was diagnosed with pancreatic adenocarcinoma. During the admission in January patient had an ERCP w / biliary stent placement. Patient reports his symptoms improved after having the ERCP . However, about two weeks ago patient reported eating steak which made him nauseous and he had a bout of emesis. As per patient, ever since then he has experienced abdominal pain and worsening jaundice. At time of examination patient reports feeling chills at home. Denies headaches, cough, n/ v, dysuria. Reports abdominal discomfort. -Patient was seen by GI whom recommended -sepsis protocol/resuscitation per ER , IV zosyn ,NPO after MN for ERCP with stent change tomorrow,CT pancreas procotol to reassess state of pancreatitis/stent position and blood cultures x 2. 03/05: Patient seen and evaluated by Heme-onc which recommended that if confirmed metastasis to the liver, will need portacath placement for systemic chemotherapy if not metastatic disease, will need surg onc f/u for whipple procedure. 03/06: Patient underwent ERCP w/ removal of prior plastic stent. A wire biliary stent was placed. LFT's and T.bili improved. Patient also underwent IR liver biopsy for lesions detected on CT scan. The patient was also seen by infectious disease which recommended patient be placed on meropenem until sensitivities returned. 03/09: Liver biopsy results demonstrated acute cholangitis and no metastatic adenoCA was identified. Since no mets present, patient is candidate for Whipple proceduer. As per GI and ID recs patient will go home on a 6 week course of ABx levaquin PO. As per Dr. Ny, patient is clear for discharge from his stand point and wants patient to follow up in his office in one week. Above is a brief summary of this patient's hospital course, for further details please refer to the medical records. Discharge Exam - Head Exam Head Exam: NORMAL INSPECTION, NORMOCEPHALIC - Eye Exam Eye Exam: EOMI, Scleral icterus - ENT Exam ENT Exam: Mucous Membranes Moist - Respiratory Exam Respiratory Exam: UNREMARKABLE - Cardiovascular Exam Cardiovascular Exam: +S1, +S2 - GI/Abdominal Exam GI & Abdominal Exam: Soft. absent: Distended, Firm, Guarding, Rigid, Tenderness - Neurological Exam Neurological exam: Alert, Oriented x3 - Psychiatric Exam Psychiatric exam: Normal Mood - Skin Skin Exam: Dry, Intact, Warm Discharge Plan - Discharge Medications Prescriptions: levoFLOXacin [Levaquin] 750 mg PO DAILY #36 tab - Follow Up Plan Condition: FAIR Disposition: HOME/ ROUTINE Instructions: Pancreatic Cancer (DC), Pancreatic Cancer (GEN), Leukocytosis (DC ), Leukocytosis (GEN), Jaundice (DC) Additional Instructions: Follow up with primary care physician in 7-10 days Follow up with master carpenter, Dr. Sequeira in 7-14 days Follow up with heme-oncologist, Dr. Small in 1 week. Referrals: PCP,NO [Primary Care Provider] - <Pedro Nguyen - Last Filed: 03/10/17 17:13> Provider - Provider Date of Admission: 03/04/17 15:04 Attending physician: Pedro Nguyen MD Primary care physician: NO PRIMARY CARE PROVIDER Hospital Course - Lab Results Lab Results: Micro Results 03/07/17 10:15 Blood-Venous Blood Culture - Preliminary NO GROWTH AFTER 3 DAYS 03/07/17 10:00 Blood-Venous Blood Culture - Preliminary NO GROWTH AFTER 3 DAYS 03/05/17 10:50 Blood Blood Culture - Final Klebsiella Pneumoniae 03/05/17 10:50 Blood Gram Stain - Final 03/04/17 15:56 Urine,Clean Catch Urine Culture - Final No Growth (<1,000 CFU/ML) 03/05/17 11:10 Blood Blood Culture - Final Klebsiella Pneumoniae 03/05/17 11:10 Blood Gram Stain - Final Most Recent Lab Values WBC 14.9 10^3/ul (4.5-11.0) H 03/10/17 06:30 RBC 3.45 10^6/uL (3.5-6.1) L 03/10/17 06:30 Hgb 10.3 gm/dL (14.0-18.0) L 03/10/17 06:30 Hct 29.7 % (42.0-52.0) L 03/10/17 06:30 MCV 86.1 fL (80.0-105.0) 03/10/17 06:30 MCH 29.9 pg (25.0-35.0) 03/10/17 06:30 MCHC 34.7 g/dl (31.0-37.0) 03/10/17 06:30 RDW 14.4 % (11.5-14.5) 03/10/17 06:30 Plt Count 788 10^3/uL (120.0-450.0) H* 03/10/17 06:30 MPV 9.6 fl (7.0-11.0) 03/10/17 06:30 Gran % 66.8 % (50.0-68.0) 03/10/17 06:30 Lymph % (Auto) 18.3 % (22.0-35.0) L 03/10/17 06:30 [place] % (Auto) 13.5 % (1.0-6.0) H 03/10/17 06:30 Eos % (Auto) 1.1 % (1.5-5.0) L 03/10/17 06:30 Baso % (Auto) 0.3 % (0.0-3.0) 03/10/17 06:30 Gran # 9.97 (1.4-6.5) H 03/10/17 06:30 Lymph # 2.7 (1.2-3.4) 03/10/17 06:30 [place] # 2.0 (0.1-0.6) H 03/10/17 06:30 Eos # 0.2 (0.0-0.7) 03/10/17 06:30 Baso # 0.04 K/mm3 (0.0-2.0) 03/10/17 06:30 Neutrophils % (Manual) 78 % (50.0-70.0) H 03/07/17 05:40 Lymphocytes % (Manual) 20 % (22.0-35.0) L 03/07/17 05:40 Monocytes % (Manual) 2 % (1.0-6.0) 03/07/17 05:40 Platelet Evaluation High (NORMAL) 03/07/17 05:40 Hypochromasia 1+ 03/07/17 05:40 Anisocytosis (manual) 1+ 03/07/17 05:40 Microcytosis (manual) Slight 03/07/17 05:40 PT 12.4 Seconds (9.9-11.8) H 03/09/17 07:00 INR 1.15 (0.93-1.08) H 03/09/17 07:00 APTT 43.5 Seconds (23.7-30.8) H 03/04/17 14:35 pO2 202 mm/Hg (30-55) H 03/04/17 14:35 VBG pH 7.55 (7.32-7.43) H 03/04/17 14:35 VBG pCO2 35.0 (40-60) L 03/04/17 14:35 VBG HCO3 30.6 mmol/l (21-28) H 03/04/17 14:35 VBG Total CO2 31.7 mmol.L (22-28) H 03/04/17 14:35 VBG O2 Sat (Calc) 100.8 % (40-65) H 03/04/17 14:35 VBG Base Excess 7.9 mmol/L (0.0-2.0) H 03/04/17 14:35 VBG Potassium 3.3 mmol/L (3.6-5.2) L 03/04/17 14:35 Sodium 124.0 mmol/L (132-148) L 03/04/17 14:35 Chloride 91.0 mmol/L (98-107) L 03/04/17 14:35 Glucose 118 mg/dl (75-110) H 03/04/17 14:35 Lactate 1.4 mmol/L (0.7-2.1) 03/04/17 14:35 FiO2 21.0 % 03/04/17 14:35 Sodium 135 mmol/L (132-148) 03/10/17 06:30 Potassium 3.8 mmol/L (3.6-5.0) 03/10/17 06:30 Chloride 96 mmol/L (95-110) 03/10/17 06:30 Carbon Dioxide 31 mmol/L (21-33) 03/10/17 06:30 Anion Gap 12 (10-20) 03/10/17 06:30 BUN 6 mg/dL (7-21) L 03/10/17 06:30 Creatinine 0.8 mg/dL (0.5-1.4) 03/10/17 06:30 Est GFR ( Amer) > 60 03/10/17 06:30 Est GFR (Non-Af Amer) > 60 03/10/17 06:30 Random Glucose 109 mg/dL (70-110) 03/10/17 06:30 Calcium 8.8 mg/dL (8.4-10.5) 03/10/17 06:30 Phosphorus 1.8 mg/dL (2.5-4.5) L 03/04/17 14:35 Magnesium 2.5 mg/dL (1.7-2.2) H 03/05/17 05:15 Total Bilirubin 4.3 mg/dL (0.2-1.3) H 03/10/17 06:30 AST 59 U/L (15-59) 03/10/17 06:30 ALT 65 U/L (7-56) H 03/10/17 06:30 Alkaline Phosphatase 267 U/L (38-133) H 03/10/17 06:30 Total Protein 7.3 g/dL (5.8-8.3) 03/10/17 06:30 Albumin 3.0 g/dL (3.0-4.8) 03/10/17 06:30 Globulin 4.2 gm/dL 03/10/17 06:30 Albumin/Globulin Ratio 0.7 (1.1-1.8) L 03/10/17 06:30 Lipase 717 U/L (23-300) H 03/04/17 17:30 Thyroxine (T4) 9.1 ug/dL (5.5-11.0) 03/05/17 06:00 Total T3 0.68 ng/mL (0.97-1.69) L 03/05/17 06:00 TSH 3rd Generation 0.12 mIU/mL (0.46-4.68) L 03/05/17 05:15 Venous Blood Potassium 3.3 mmol/L (3.6-5.2) L 03/04/17 14:35 Urine Color Dark yellow (YELLOW) 03/04/17 15:56 Urine Appearance Clear (CLEAR) 03/04/17 15:56 Urine pH 6.5 (4.7-8.0) 03/04/17 15:56 Ur Specific [place] <= 1.005 (1.005-1.035) 03/04/17 15:56 Urine Protein 30 mg/dL (<30 mg/dL) H 03/04/17 15:56 Urine Glucose (UA) Negative mg/dL (NEGATIVE) 03/04/17 15:56 Urine Ketones Negative mg/dL (NEGATIVE) 03/04/17 15:56 Urine Blood Small (NEGATIVE) H 03/04/17 15:56 Urine Nitrate Negative (NEGATIVE) 03/04/17 15:56 Urine Bilirubin Large (NEGATIVE) H 03/04/17 15:56 Urine Urobilinogen 0.2 E.U./dL (<1 E.U./dL) 03/04/17 15:56 Ur Leukocyte Esterase Negative Humza/uL (NEGATIVE) 03/04/17 15:56 Urine RBC 0 - 2 /hpf (0-2) 03/04/17 15:56 Urine WBC Negative /hpf (0-6) 03/04/17 15:56 Ur Epithelial Cells 0 - 2 /hpf (0-5) 03/04/17 15:56 Urine Bacteria Neg (NEG) 03/04/17 15:56 Urine Osmolality 190 mosm/kg (50-645) 03/04/17 18:30 Ur Random Sodium 30 meq/L 03/04/17 17:40 Ur Random Potassium 5.6 meq/L 03/04/17 17:40 Attending/Attestation - Attestation I have personally seen and examined this patient.: Yes I have fully participated in the care of the patient.: Yes I have reviewed all pertinent clinical information, including history, physical exam and plan: Yes Notes (Text): 03/10/17 17:04 56 year old male with past medical history of pancreatic adenocarcinoma s/p ERCP with stent placement who presented with fever, chills and recurrent jaundice. CT was reviewed as above. He was seen by GI and underwent ERCP with stent removal and insertion of biliary stent wire. He had Klebsiella bacteremia for which he was on antibiotics. Repeat cultures have been negative to date. Leukocytosis has improved. His LFTs and symptoms also have improved. He had liver biopsy which was consistent with cholangitis without evidence of metastatic disease. Patient is discharged home to follow up with his pmd. Follow up with GI, oncologist and surgeon. Continue with levaquin for 4-6 weeks as above. Pedro Nguyen MD Hospitalist.
--- NOTE | 2017-03-10 19:12 | CP.PCM.PN ---
Subjective - Date & Time of Evaluation Date of Evaluation: 03/10/17 Time of Evaluation: 10:15 - Subjective Subjective: Comfortable, afebrile, no abdominal pain, no nausea or vomiting, not in distress. Objective - Vital Signs/Intake and Output Vital Signs (last 24 hours): Temp Pulse Resp BP Pulse Ox 98.3 F 66 18 150/90 100 03/10/17 07:30 03/10/17 07:30 03/10/17 07:30 03/10/17 07:30 03/10/17 07:30 Intake and Output: 03/10/17 03/11/17 18:59 06:59 Intake Total 240 Balance 240 - Labs Labs: 03/10/17 06:30 03/10/17 06:30 PT 12.4 Seconds (9.9-11.8) H 03/09/17 07:00 INR 1.15 (0.93-1.08) H 03/09/17 07:00 APTT 43.5 Seconds (23.7-30.8) H 03/04/17 14:35 - Constitutional Appears: Non-toxic, No Acute Distress - Head Exam Head Exam: NORMAL INSPECTION - Neck Exam Neck Exam: absent: Lymphadenopathy, Meningismus - Respiratory Exam Respiratory Exam: Decreased Breath Sounds - Cardiovascular Exam Cardiovascular Exam: +S1, +S2 - GI/Abdominal Exam GI & Abdominal Exam: Soft. absent: Tenderness Assessment and Plan - Assessment and Plan (Free Text) Plan: Assessment Sepsis secondary to Klebsiella bacteremia due to acute cholangitis S/P ERCP and stent placement POD #6 pancreatic cancer Plan switched antibiotics to Rocephin; repeat blood cx done 03/07 are negative [address]iscuss[address] with Dr. Nguyen - when ready for discharge, he can be switched to PO LEvaquin for another 4-6 weeks (QTc on EKG is less than 500 ms) as discussed with GI as well
== END 2017-03-10 18:49 | disposition home or self-care (01) | DRG 871 ==
LOC: ED 13:18 → ERH 15:04 → 2RSO 18:17 → 5RNO 03-07 18:05
PROVIDERS: ADMIT Internal Medicine; ATTEND Internal Medicine
PROC: 0FPB8DZ Removal of Intraluminal Device from Hepatobiliary Duct, Via Natural or Artificial Opening Endoscopic (ICD-10-PCS; principal; 2017-03-05 12:00)
PROC: 0F798DZ Dilation of Common Bile Duct with Intraluminal Device, Via Natural or Artificial Opening Endoscopic (ICD-10-PCS; 2017-03-05 12:00)
PROC: 0FB03ZX Excision of Liver, Percutaneous Approach, Diagnostic (ICD-10-PCS; 2017-03-06)
DX: A41.59 Other Gram-negative sepsis (principal); K83.1 Obstruction of bile duct; C25.0 Malignant neoplasm of head of pancreas; K83.0 Cholangitis; E87.1 Hypo-osmolality and hyponatremia; E83.39 Other disorders of phosphorus metabolism; D47.3 Essential (hemorrhagic) thrombocythemia; E87.6 Hypokalemia; D64.9 Anemia, unspecified; K76.9 Liver disease, unspecified; Z87.891 Personal history of nicotine dependence

== ENCOUNTER 2017-04-01 20:27 | Observation (INO) | payer BC ==
[2017-04-01 20:33] VITALS: BMI 25.6
[2017-04-01] MEDS ORDERED: Sodium Chloride 0.9% 1,000 ML IV STA (20:38)
[2017-04-01 20:49] LABS: ADD MANUAL DIFF? NO
[2017-04-01 21:00] LABS: BASO # 0.02 K/mm3 (0.0-2.0); BASO % 0.1 % (0.0-3.0); EOS # 0.1 (0.0-0.7); EOS % 0.8 % (1.5-5.0); GRAN # 10.17 (1.4-6.5); GRAN % 75.1 % (50.0-68.0); HEMATOCRIT 38.4 % (42.0-52.0); LYMPH # 2.5 (1.2-3.4); LYMPH % 18.2 % (22.0-35.0); MEAN CELL VOLUME 85.1 fL (80.0-105.0); MEAN CORPUSCULAR HEMOGLOBIN 29.5 pg (25.0-35.0); MEAN CORPUSCULAR HGB CONC 34.6 g/dl (31.0-37.0); MEAN PLATELET VOLUME 9.2 fl (7.0-11.0); MONO # 0.8 (0.1-0.6); MONO % 5.8 % (1.0-6.0); PLATELET COUNT 582 10^3/uL (120.0-450.0); RED CELL DISTRIBUTION WIDTH 14.9 % (11.5-14.5); WHITE BLOOD COUNT 13.6 10^3/ul (4.5-11.0)
--- NOTE | 2017-04-01 21:14 | ED PDOC ---
Arrival/HPI - General Chief Complaint: GI Problem Time Seen by Provider: 04/01/17 20:37 Historian: Patient - History of Present Illness Narrative History of Present Illness (Text): 04/01/17 20:30 Gato Osborne is a 56 year old male, whose past medical history includes pancreatic adenocarcinoma, who presents to the Emergency department for evaluation of subjective fever, nausea, and vomiting for the past few days. Patient reports associated RUQ discomfort. Patient reports he has been able to tolerate fluids without difficulty. Patient was recently admitted to the hospital with cholangitis and had an ERCP with stent replacement. Patient with leukocytosis at the time, diagnosed with blood cultures positive for klebisella. Patient was treated with Meripenem and was then switched to Rocephin. Patient improved and was discharged home on Levaquin, which he has almost completed. Patient returns now for aforementioned symptoms. Patient denies any chest pain, shortness of breath, diarrhea, urinary symptoms, or any other complaints. Symptom Onset: Gradual Symptom Course: Unchanged Activities at Onset: Rest, Light Context: Home Past Medical History - Provider Review Nursing Documentation Reviewed: Yes - Cardiac Hx Pacemaker: No - Pulmonary Hx Respiratory Disorders: No - Neurological Hx Neurological Disorder: No - HEENT Hx HEENT Disorder: No - Renal Hx Renal Disorder: No - Endocrine/Metabolic Hx Endocrine Disorders: No - Hematological/Oncological Hx Blood Transfusions: No Hx Blood Transfusion Reaction: Yes - Integumentary Hx Dermatological Disorder: Yes (jaundaced) - Musculoskeletal/Rheumatological Hx Falls: No - Gastrointestinal Hx Gastrointestinal Disorders: Yes Other/Comment: eus/egd/ercp duodenitis/ dilated cbd/ cbd stricture/ pancreatic mass/ 01/29/2017 - Genitourinary/Gynecological Hx Genitourinary Disorders: No - Psychiatric Hx Emotional Abuse: No Hx Physical Abuse: No Hx Substance Use: No - Surgical History Other/Comment: biliary stent 01/29/17 - Anesthesia Hx Anesthesia Reactions: No Hx Malignant Hyperthermia: No - Suicidal Assessment Feels Threatened In Home Enviroment: No Family/Social History - Physician Review Nursing Documentation Reviewed: Yes Family/Social History: No Known Family HX Smoking Status: Former Smoker Hx Alcohol Use: Yes (quit 25 yr ago) Hx Substance Use: No Allergies/Home Meds Allergies/Adverse Reactions: Allergies No Known Allergies Allergy (Verified 03/04/17 13:28) Review of Systems - Physician Review All systems were reviewed & negative as marked: Yes - Review of Systems Constitutional: Fevers Eyes: Normal ENT: Normal Respiratory: Normal. absent: SOB, Cough Cardiovascular: Normal. absent: Chest Pain Gastrointestinal: Abdominal Pain, Nausea, Vomiting. absent: Diarrhea Genitourinary Male: Normal. absent: Dysuria, Frequency, Hematuria, Urinary Output Changes Musculoskeletal: Normal. absent: Back Pain, Neck Pain Skin: Normal. absent: Rash Neurological: Normal. absent: Headache, Dizziness Endocrine: Normal Hemo/Lymphatic: Normal Psychiatric: Normal Physical Exam Vital Signs Reviewed: Yes Vital Signs Temp Pulse Resp BP Pulse Ox 04/02/17 00:00 90 20 145/89 99 04/01/17 22:40 100 H 20 134/88 100 04/01/17 20:32 97.5 F L 112 H 18 129/83 99 Temperature: Afebrile Blood Pressure: Normal Pulse: Regular Respiratory Rate: Normal Appearance: Positive for: Well-Appearing, Non-Toxic, Comfortable Pain Distress: None Mental Status: Positive for: Alert and Oriented X 3 - Systems Exam Head: Present: Atraumatic, Normocephalic Pupils: Present: PERRL Extroacular Muscles: Present: EOMI Conjunctiva: Present: Normal Mouth: Present: Moist Mucous Membranes Neck: Present: Normal Range of Motion Respiratory/Chest: Present: Clear to Auscultation, Good Air Exchange. No: Respiratory Distress, Accessory Muscle Use Cardiovascular: Present: Regular Rate and Rhythm, Normal S1, S2. No: Murmurs Abdomen: Present: Tenderness (RUQ tenderness to palpation), Normal Bowel Sounds. No: Distention, Peritoneal Signs Back: Present: Normal Inspection Upper Extremity: Present: Normal Inspection. No: Cyanosis, Edema Lower Extremity: Present: Normal Inspection. No: Edema Neurological: Present: GCS=15, CN II-XII Intact, Speech Normal Skin: Present: Warm, Dry, Normal Color. No: Rashes Psychiatric: Present: Alert, Oriented x 3, Normal Insight, Normal Concentration Medical Decision Making ED Course and Treatment: 04/01/17 20:30 Impression: 56 year old male complaining of nausea, vomiting, subjective fever, and RUQ abdominal discomfort. Plan: -- EKG -- Labs, amylase, lipase -- IV fluids ---Zofran -- Toradol -- Reassess and disposition Prior Visits: Notes and results from previous visits were reviewed. On 03/04/2017, pt was seen in the emergency department for fever, generalized weakness, abdominal discomfort and yellowing of skin. Pt was admitted for further evaluation. Progress Notes: Reviewed EKG, NSR at 95 bpm. Non-specific ST/T wave changes. 04/01/17 23:[address] Mckoy, requests pt go to hospitalist service. residential gas heat technician notified. 04/02/17 01:[address] Galeano, who is aware and agrees with plan. Pt will go to [facility] observation for abdominal pain, intractable vomiting, and pancreatic cancer. 04/02/17 01:24 CT Abdomen and Pelvis shows: Progression of disease with increasing size of pancreatic head mass and liver metastases. - Lab Interpretations Lab Results: 04/01/17 20:30 04/01/17 20:30 Lab Results 04/01/17 20:30: Sodium 138, Potassium 3.2 L, Chloride 99, Carbon Dioxide 23, Anion Gap 19, BUN 23 H, Creatinine 0.9, Est GFR ( Amer) > 60, Est GFR ( Non-Af Amer) > 60, Random Glucose 127 H, Calcium 10.2, Total Bilirubin 1.8 H, AST 92 H, ALT 28, Alkaline Phosphatase 372 H, Total Protein 9.0 H, Albumin 4.3, Globulin 4.7, Albumin/Globulin Ratio 0.9 L, Amylase 128 H, Lipase 606 H 04/01/17 20:30: PT 18.5 H, INR 1.71 H, APTT 38.4 H 04/01/17 20:30: WBC 13.6 H, RBC 4.51, Hgb 13.3 L, Hct 38.4 L, MCV 85.1, MCH 29.5 , MCHC 34.6, RDW 14.9 H, Plt Count 582 H, MPV 9.2, Gran % 75.1 H, Lymph % (Auto ) 18.2 L, Bryan % (Auto) 5.8, Eos % (Auto) 0.8 L, Baso % (Auto) 0.1, Gran # 10.17 H, Lymph # 2.5, Bryan # 0.8 H, Eos # 0.1, Baso # 0.02 I have reviewed the lab results: Yes - RAD Interpretation Narrative RAD Interpretations (Text): CT Abdomen and Pelvis shows: Limitations: Examination limited without contrast. Lower thorax: No acute findings. ABDOMEN: Liver: There are extensive liver metastases, which appear progressed compared to the recent prior study. Gallbladder and bile ducts: Aside from air in the lumen of the gallbladder, gallbladder is unremarkable. A common bile duct stent is noted. Pneumobilia confirms stent patency. Pancreas: Necrotic pancreatic head mass is again seen, with pancreatic ductal dilatation. Although limited without contrast, the pancreatic mass new likely increased in size measuring approximately 6.7 cm, previously 5.6. Spleen: The spleen is unremarkable. Adrenals: The adrenal glands are unremarkable Kidneys and ureters: No hydronephrosis or nephrolithiasis. Stomach and bowel: No evidence of bowel obstruction. No pericolonic inflammatory stranding. Appendix: A normal appendix is identified. PELVIS: Bladder: No focal wall thickening of the urinary bladder. No stones. Reproductive: Unremarkable as visualized. ABDOMEN and PELVIS: Intraperitoneal space: No significant peritoneal free fluid. No free peritoneal air. Bones/joints: No acute osseous abnormality. Soft tissues: No soft tissue swelling. Vasculature: Significantly limited assessment of the vasculature without contrast. Atherosclerotic calcification affects the aorta and iliac arteries. No aortic aneurysm. Lymph nodes: No enlarged lymph nodes. IMPRESSION: Progression of disease with increasing size of pancreatic head mass and liver metastases. Radiology Orders: 04/01/17 23:25 ABD & PELVIS W/O PO OR IV CONT [CT] Stat Air Quality Manager: Radiologist - EKG Interpretation Interpreted by ED Physician: Yes Type: 12 lead EKG - Medication Orders Current Medication Orders: Acetaminophen (Tylenol 325mg Tab) 650 mg PO Q6H PRN PRN Reason: Fever >100.4 F Famotidine (Pepcid 20mg/50ml Premix) 20 mg in 50 mls @ 100 mls/hr IV Q12 PENNY Sodium Chloride (Sodium Chloride 0.9%) 1,000 mls @ 100 mls/hr IV .Q10H PENNY Ibuprofen (Motrin Tab) 600 mg PO Q6H PRN PRN Reason: Pain, Mild (1-3) Insulin Human Lispro (Humalog) 0 units SC ACHS PENNY PRN Reason: Protocol Ondansetron HCl (Zofran Inj) 8 mg IVP Q6H PRN PRN Reason: Nausea/Vomiting Discontinued Medications Sodium Chloride (Sodium Chloride 0.9%) 1,000 mls @ 1,000 mls/hr IV .Q1H STA Stop: 04/01/17 21:37 Last Admin: 04/01/17 21:06 Dose: 1,000 mls/hr Ketorolac Tromethamine (Toradol) 30 mg IVP ONCE ONE Stop: 04/01/17 20:56 Last Admin: 04/01/17 21:06 Dose: 30 mg Morphine Sulfate (Morphine) 4 mg IVP STAT STA Stop: 04/01/17 21:31 Last Admin: 04/01/17 22:34 Dose: 4 mg Morphine Sulfate (Morphine) Confirm Administered Dose 4 mg .ROUTE .STK-MED ONE Stop: 04/01/17 21:32 Last Admin: 04/01/17 21:43 Dose: Not Given Non-Admin Reason: Patient Refused Ondansetron HCl (Zofran Inj) 4 mg IVP ONCE ONE Stop: 04/01/17 20:56 Last Admin: 04/01/17 21:07 Dose: 4 mg Potassium Chloride (K-Dur 20 Meq Er Tab) 40 meq PO STAT STA Stop: 04/01/17 23:10 Last Admin: 04/02/17 01:04 Dose: 40 meq - Ronibe Statement The provider has reviewed the documentation as recorded by the Rosa Alvarez Provider Attestation: All medical record entries made by the Rosa were at my direction and personally dictated by me. I have reviewed the chart and agree that the record accurately reflects my personal performance of the history, physical exam, medical decision making, and the department course for this patient. I have also personally directed, reviewed, and agree with the discharge instructions and disposition. Disposition/Present on Arrival - Present on Arrival Any Indicators Present on Arrival: No History of DVT/PE: No History of Uncontrolled Diabetes: No Urinary Catheter: No History of Decub. Ulcer: No History Surgical Site Infection Following: None - Disposition Have Diagnosis and Disposition been Completed?: Yes Diagnosis: Intractable abdominal pain, Pancreatic cancer, Pancreatic mass Disposition: HOSPITALIZED Disposition Time: 01:28 Condition: STABLE
[2017-04-01 21:16] LABS: ALB/GLOB RATIO 0.9 (1.1-1.8); ALKALINE PHOSPHATASE 372 U/L (38-133); ALT/SGPT 28 U/L (7-56); AMYLASE 128 U/L (35-125); AST/SGOT 92 U/L (15-59); BLOOD UREA NITROGEN 23 mg/dL (7-21); CALCIUM 10.2 mg/dL (8.4-10.5); CARBON DIOXIDE 23 mmol/L (21-33); CHLORIDE 99 mmol/L (98-107); GFR AFRICAN-AMERICAN > 60; GLUCOSE,RANDOM 127 mg/dL (70-110); LIPASE 606 U/L (23-300); SODIUM 138 mmol/L (132-148)
[2017-04-01 21:22] LABS: POTASSIUM 3.2 mmol/L (3.6-5.0)
[2017-04-01 21:25] LABS: BILIRUBIN,TOTAL 1.8 mg/dL (0.2-1.3)
[2017-04-01] MEDS ORDERED: Morphine 4 mg/ml ISec ONE (21:31)
[2017-04-01] MEDS: Morphine 4 mg/ml ISec IVP STA ×2 (21:42→22:34)
[2017-04-01 21:49] LABS: INR 1.71 (0.93-1.08); PARTIAL THROMBOPLASTIN TIME 38.4 Seconds (23.7-30.8)
[2017-04-01] MEDS ORDERED: Potassium Chloride 20 mEq ER Tab PO STA (23:09)
--- NOTE | 2017-04-02 00:39 | CP.PCM.HP ---
<DonalnorbertoBlayne toledo - Last Filed: 04/02/17 01:54> History of Present Illness - History of Present Illness History of Present Illness: CC: Vomiting 3x since yesterday This patient is a 56yo M w/ a PMHx of Stage [address] Pancreatic CA followed by Dr. Small; patient has very poor insight into this disease and its poor outcome. When questioned what his prognosis was, the patient said "I don't know, I was just diagnosed one month ago". He said he went to a cancer center in [place] for a second opinion as well; states he was offered a whipple procedure as well as palliative chemo. He states he vomited twice, NBNB, and has felt generally anorexic for the past month. Denies new foods or travel or sick contacts. Denies fevers/chills, DENNIS, CP, SOB, abdominal pain, diarrhea, dysuria/freq/urg, or lower extremity pain/swelling. The patient states that he currently wants everything done for him in terms of plan of care (intubation/chest compressions/ CPR). Past medical history: None Past surgical history: None Family history: Father Colon CA Social history: 1/2ppd x 25 years, denies alcohol, and illicit drug use. Lives at home with family, and 3 kids 19, 12, and 5. Allergies: NKDA Meds: None, was finishing course of levaquin Present on Admission - Present on Admission Any Indicators Present on Admission: No History of DVT/PE: No History of Uncontrolled Diabetes: No Urinary Catheter: No Decubitus Ulcer Present: No Past Patient History - Past Medical History & Family History Past Medical History?: No - Past Social History Smoking Status: Former Smoker - CARDIAC Hx Pacemaker: No - PULMONARY Hx Respiratory Disorders: No - NEUROLOGICAL Hx Neurological Disorder: No - HEENT Hx HEENT Problems: No - RENAL Hx Chronic Kidney Disease: No - ENDOCRINE/METABOLIC Hx Endocrine Disorders: No - HEMATOLOGICAL/ONCOLOGICAL Hx Blood Transfusions: No Hx Blood Transfusion Reaction: Yes - INTEGUMENTARY Hx Dermatological Problems: Yes (jaundaced) - MUSCULOSKELETAL/RHEUMATOLOGICAL Hx Falls: No - GASTROINTESTINAL Hx Gastrointestinal Disorders: Yes Other/Comment: eus/egd/ercp duodenitis/ dilated cbd/ cbd stricture/ pancreatic mass/ 01/29/2017 - GENITOURINARY/GYNECOLOGICAL Hx Genitourinary Disorders: No - PSYCHIATRIC Hx Emotional Abuse: No Hx Physical Abuse: No Hx Substance Use: No - SURGICAL HISTORY Other/Comment: biliary stent 01/29/17 - ANESTHESIA Hx Anesthesia Reactions: No Hx Malignant Hyperthermia: No Meds Allergies/Adverse Reactions: Allergies Allergy/AdvReac Type Severity Reaction Status Date / Time No Known Allergies Allergy Verified 03/04/17 13:28 Physical Exam - Constitutional Appears: Well, Non-toxic - Head Exam Head Exam: ATRAUMATIC, NORMAL INSPECTION - Eye Exam Eye Exam: EOMI, Normal appearance - ENT Exam ENT Exam: Mucous Membranes Moist - Neck Exam Neck exam: Positive for: Full Rom. Negative for: Lymphadenopathy - Respiratory Exam Respiratory Exam: Clear to Auscultation Bilateral. absent: Rales, Rhonchi, Wheezes - Cardiovascular Exam Cardiovascular Exam: REGULAR RHYTHM, +S1, +S2 - GI/Abdominal Exam GI & Abdominal Exam: Normal Bowel Sounds, Soft, Tenderness (epigastric ). absent: Rigid - Rectal Exam Rectal Exam: Deferred - Extremities Exam Extremities exam: Positive for: full ROM, normal inspection. Negative for: calf tenderness Results - Vital Signs Recent Vital Signs: Last Vital Signs Temp 97.5 F L 04/01/17 20:32 Pulse 100 H 04/01/17 22:40 Resp 20 04/01/17 22:40 BP 134/88 04/01/17 22:40 Pulse Ox 100 04/01/17 22:40 - Labs Result Diagrams: 04/01/17 20:30 04/01/17 20:30 Labs: Laboratory Results - last 24 hr 04/01/17 04/01/17 04/01/17 20:30 20:30 20:30 WBC 13.6 H RBC 4.51 Hgb 13.3 L Hct 38.4 L MCV 85.1 MCH 29.5 MCHC 34.6 RDW 14.9 H Plt Count 582 H MPV 9.2 Gran % 75.1 H Lymph % (Auto) 18.2 L Larimer % (Auto) 5.8 Eos % (Auto) 0.8 L Baso % (Auto) 0.1 Gran # 10.17 H Lymph # 2.5 Larimer # 0.8 H Eos # 0.1 Baso # 0.02 PT 18.5 H INR 1.71 H APTT 38.4 H Sodium 138 Potassium 3.2 L Chloride 99 Carbon Dioxide 23 Anion Gap 19 BUN 23 H Creatinine 0.9 Est GFR ( Amer) > 60 Est GFR (Non-Af Amer) > 60 Random Glucose 127 H Calcium 10.2 Total Bilirubin 1.8 H AST 92 H ALT 28 Alkaline Phosphatase 372 H Total Protein 9.0 H Albumin 4.3 Globulin 4.7 Albumin/Globulin Ratio 0.9 L Amylase 128 H Lipase 606 H Assessment & Plan - Assessment and Plan (Free Text) Assessment: 56yo M admitted for intractable vomiting Intractable vomiting -PRN Zofran -vomiting under control right now; tolerated liquids in the ED -IVF 125ml/hr NS -trial of liquid diet in morning Pancreatic CA; metastatic stage 4 Ct scan showed progression of disease with increasing size of pancreatic head mass and liver metastases. -Palliative Care Consult; Jesenia Corado; appreciate recs -Heme/Onc Consult: Dr. Small; appreciate recs -patient originally came in with nausea/vomiting; able to tolerate liquids in the ED -will continue with ED -There is derangement of his Bilirubin/AST/ALT/Amylase and Lipase but they are all decreased in comparison to his previous admission; will monitor -pain control Anemia;chronic -improved from previous -will monitor Hypokalemia -given 40PO in ED; will monitor Hyperglycemia -most likely 2/2 to advancing pancreatic CA -will put on insulin sliding scale -f/u hemoglobin A1C Proph Lovenox SC Liquid Diet Pepcid Case discussed and seen with Dr. Froylan Williamson PGY1 Night Float Decision To Admit - Pt Status Changed To: Hospital Disposition Of: Inpatient Admission - Admit Certification Admit to Inpatient:: After my assessment, the patient will require hospitalization for at least two midnights. This is because of the severity of symptoms shown, intensity of services needed, and/or the medical risk in this patient being treated as an outpatient. - . Bed Request Type: Med/Surg Admitting Physician: Sandro Galeano <Sandro Galeano - Last Filed: 04/02/17 02:27> Results - Vital Signs Recent Vital Signs: Last Vital Signs Temp 97.5 F L 04/01/17 20:32 Pulse 90 04/02/17 00:00 Resp 20 04/02/17 00:00 BP 145/89 04/02/17 00:00 Pulse Ox 99 04/02/17 00:00 - Labs Result Diagrams: 04/01/17 20:30 04/01/17 20:30 Attending/Attestation - Attestation I have personally seen and examined this patient.: Yes I have fully participated in the care of the patient.: Yes I have reviewed all pertinent clinical information: Yes Notes (Text): 04/02/17 02:21 I agree with the above mentioned note and exam by Dr. Nayak with the addition/ exception of the followin56 y/o male recently diagnosed with AdenoCa of the pancreas (01/2017) came to the ED due to vomiting for the past 2 days. Patient reports feeling that he may have been out in the sun too long which caused the onset of these symptoms. Upon reviewing his last visit and stay at [facility] last month, he was treated for klebsiella bacteremia and underwent a biopsy of a suspicious liver lesion which did not show any sign of metastasis. Repeat CT of the Abd/pelvis done today is reporting increased lesions as being suspicious for metastasis. He will be admitted to alleviate his nausea/vomiting and receive pain control for abdominal pain which he currently describes as mild-moderate. Unclear as to patient's course of action upon discharge, he states going to [facility] for a second opinion on the treatment for his new diagnosis but has not decided on what he wants to do at this point.
[2017-04-02] MEDS ORDERED: Sodium Chloride 0.9% 1,000 ML IV SCH (01:15)
[2017-04-02] MEDS ORDERED: Insulin Detemir 100 units/ml Vial (Levemir) SC ONE (01:40)
[2017-04-02] MEDS ORDERED: Morphine 2 mg/ml ISec IVP PRN (01:47)
[2017-04-02] MEDS: Sodium Chloride 0.9% 1,000 ML IV SCH ×2 (03:32→12:06)
[2017-04-02] MEDS ORDERED: Insulin Lispro 1 UNITS/0.01 ML SC SCH ×2 (07:30)
[2017-04-02 08:21] LABS: ADD MANUAL DIFF? NO
[2017-04-02 08:27] VITALS: RESP 20
[2017-04-02 08:29] LABS: URINE BILIRUBIN SMALL (NEGATIVE); URINE BLOOD NEGATIVE (NEGATIVE); URINE GLUCOSE (UA) NEGATIVE (NEGATIVE); URINE KETONE TRACE mg/dL (NEGATIVE); URINE LEUKOCYTE ESTERASE NEGATIVE Leu/uL (NEGATIVE); URINE PROTEIN 100 mg/dL (<30 mg/dL)
[2017-04-02 08:31] LABS: BASO # 0.02 K/mm3 (0.0-2.0); BASO % 0.2 % (0.0-3.0); EOS # 0.4 (0.0-0.7); EOS % 3.3 % (1.5-5.0); GRAN # 7.74 (1.4-6.5); GRAN % 68.2 % (50.0-68.0); HEMATOCRIT 33.8 % (42.0-52.0); LYMPH # 2.3 (1.2-3.4); LYMPH % 20.4 % (22.0-35.0); MEAN CELL VOLUME 86.2 fL (80.0-105.0); MEAN CORPUSCULAR HEMOGLOBIN 28.8 pg (25.0-35.0); MEAN CORPUSCULAR HGB CONC 33.4 g/dl (31.0-37.0); MEAN PLATELET VOLUME 9.2 fl (7.0-11.0); MONO # 0.9 (0.1-0.6); MONO % 7.9 % (1.0-6.0); PLATELET COUNT 495 10^3/uL (120.0-450.0); RED CELL DISTRIBUTION WIDTH 15.3 % (11.5-14.5); WHITE BLOOD COUNT 11.4 10^3/ul (4.5-11.0)
[2017-04-02 08:32] LABS: URINE APPEARANCE SL CLOUDY (CLEAR); URINE COLOR YELLOW (YELLOW)
[2017-04-02 08:37] LABS: INR 1.56 (0.93-1.08)
[2017-04-02 08:40] LABS: URINE RBC 0 - 2 /hpf (0-2); URINE WBC 0 - 2 /hpf (0-6)
[2017-04-02 08:44] LABS: ALB/GLOB RATIO 0.9 (1.1-1.8); ALKALINE PHOSPHATASE 289 U/L (38-133); ALT/SGPT 28 U/L (7-56); AST/SGOT 43 U/L (15-59); BILIRUBIN,TOTAL 1.3 mg/dL (0.2-1.3); BLOOD UREA NITROGEN 21 mg/dL (7-21); CALCIUM 9.1 mg/dL (8.4-10.5); CARBON DIOXIDE 28 mmol/L (21-33); CHLORIDE 103 mmol/L (95-110); GFR AFRICAN-AMERICAN > 60; GLUCOSE,RANDOM 98 mg/dL (70-110); POTASSIUM 3.3 mmol/L (3.6-5.0); SODIUM 139 mmol/L (132-148); TOTAL PROTEIN 7.2 g/dL (5.8-8.3)
[2017-04-02] MEDS: Insulin Lispro 1 UNITS/0.01 ML SC SCH ×3 (08:50→16:14)
[2017-04-02] MEDS ORDERED: Potassium Chloride 20 mEq ER Tab PO ONE (09:28)
[2017-04-02] MEDS ORDERED: Enoxaparin 40 mg Syringe SC SCH (10:00)
[2017-04-02] MEDS ORDERED: Famotidine 20mg/50ml 20 MG/50 ML BAG IV SCH (10:00)
--- NOTE | 2017-04-02 10:05 | CP.PCM.CON ---
History of Present Illness - History of Present Illness History of Present Illness: Palliative consult requested by Dr. Power Nolen Attending Dr. Tanya Angel Reason: Goals of care 56 year old male with a history of pancreatic cancer who presented with nausea, vomiting and right upper quadrant tenderness. Currently on oral antibiotic therapy for bacteremia.Labs: leukocytotis, anemia, elevated LFT's, lipase and amylase. PMHx: jaundice,biliary stent( 01/29/17), klebsiella bacteremia Family History: Father had colon cancer. Social History: Former smoker, no alcohol or drug use. Lives with girlfriend. Currently employed. Advance Care Planning: The patient does not have an Advance Directive. [place] of Systems: RUQ tenderness,nausea, occasional vomiting, weigh loss, early satiety. Al other systems reviewed and are negative. Past Patient History - Past Medical History & Family History Past Medical History?: No - Past Social History Smoking Status: Heavy Smoker > 10 Cigarettes Daily - CARDIAC Hx Pacemaker: No - PULMONARY Hx Respiratory Disorders: No - NEUROLOGICAL Hx Neurological Disorder: No - HEENT Hx HEENT Problems: No - RENAL Hx Chronic Kidney Disease: No - ENDOCRINE/METABOLIC Hx Endocrine Disorders: No - HEMATOLOGICAL/ONCOLOGICAL Hx Blood Disorders: No Hx AIDS: No Hx Human Immunodeficiency Virus (HIV): No - INTEGUMENTARY Hx Dermatological Problems: Yes (jaundaced) - MUSCULOSKELETAL/RHEUMATOLOGICAL Hx Falls: No - GASTROINTESTINAL Hx Gastrointestinal Disorders: Yes Other/Comment: eus/egd/ercp duodenitis/ dilated cbd/ cbd stricture/ pancreatic mass/ 01/29/2017 - GENITOURINARY/GYNECOLOGICAL Hx Genitourinary Disorders: No - PSYCHIATRIC Hx Emotional Abuse: No Hx Physical Abuse: No Hx Substance Use: No - SURGICAL HISTORY Other/Comment: biliary stent 01/29/17 - ANESTHESIA Hx Anesthesia Reactions: No Hx Malignant Hyperthermia: No Meds Allergies/Adverse Reactions: Allergies Allergy/AdvReac Type Severity Reaction Status Date / Time No Known Allergies Allergy Verified 03/04/17 13:28 - Medications Medications: Current Medications Acetaminophen (Tylenol 325mg Tab) 650 mg PO Q6H PRN PRN Reason: Fever >100.4 F Docusate Sodium (Colace) 100 mg PO DAILY [facility] Enoxaparin Sodium (Lovenox) 40 mg SC DAILY [facility] PRN Reason: Protocol Famotidine (Pepcid 20mg/50ml Premix) 20 mg in 50 mls @ 100 mls/hr IV Q12 [facility] Sodium Chloride (Sodium Chloride 0.9%) 1,000 mls @ 125 mls/hr IV .Q8H [facility] Last Admin: 04/02/17 03:32 Dose: 125 mls/hr Insulin Human Lispro (Humalog) 0 units SC ACHS [facility] PRN Reason: Protocol Last Admin: 04/02/17 08:50 Dose: Not Given Ketorolac Tromethamine (Toradol) 15 mg IVP Q6H PRN PRN Reason: Pain, moderate (4-7) Stop: 04/04/17 01:48 Last Admin: 04/02/17 08:36 Dose: 15 mg Morphine Sulfate (Morphine) 2 mg IVP Q4H PRN PRN Reason: Pain, severe (8-10) Ondansetron HCl (Zofran Inj) 4 mg IVP Q6H PRN PRN Reason: Nausea/Vomiting Physical Exam - Constitutional Appears: Chronically Ill - Head Exam Head Exam: NORMOCEPHALIC - Eye Exam Eye Exam: Normal appearance, PERRL - ENT Exam ENT Exam: Mucous Membranes Moist, Normal Oropharynx - Neck Exam Neck exam: Positive for: Normal Inspection - Respiratory Exam Respiratory Exam: Clear to Auscultation Bilateral, NORMAL BREATHING PATTERN - Cardiovascular Exam Cardiovascular Exam: REGULAR RHYTHM, +S1, +S2 - GI/Abdominal Exam GI & Abdominal Exam: Normal Bowel Sounds, Soft Additional comments: RUQ tenderness - Extremities Exam Extremities exam: Positive for: normal inspection, pedal pulses present - Back Exam Back exam: NORMAL INSPECTION - Neurological Exam Neurological exam: Alert, CN II-XII Intact, Oriented x3 - Skin Skin Exam: Dry, Warm - Additional Findings Additional findings: Palliative performance scale rating 70 % Results - Vital Signs Recent Vital Signs: Last Vital Signs Temp 98.2 F 04/02/17 08:26 Pulse 79 04/02/17 08:26 Resp 20 04/02/17 08:26 BP 147/91 H 04/02/17 08:26 Pulse Ox 99 04/02/17 08:26 - Labs Result Diagrams: 04/02/17 07:30 04/02/17 08:00 Labs: Laboratory Results - last 24 hr 04/02/17 04/02/17 04/02/17 07:30 08:00 08:00 WBC 11.4 H RBC 3.92 Hgb 11.3 L Hct 33.8 L MCV 86.2 MCH 28.8 MCHC 33.4 RDW 15.3 H Plt Count 495 H MPV 9.2 Gran % 68.2 H Lymph % (Auto) 20.4 L [place] % (Auto) 7.9 H Eos % (Auto) 3.3 Baso % (Auto) 0.2 Gran # 7.74 H Lymph # 2.3 [place] # 0.9 H Eos # 0.4 Baso # 0.02 PT 16.9 H INR 1.56 H Sodium 139 Potassium 3.3 L Chloride 103 Carbon Dioxide 28 Anion Gap 11 BUN 21 Creatinine 0.8 Est GFR ( Amer) > 60 Est GFR (Non-Af Amer) > 60 Random Glucose 98 Calcium 9.1 Total Bilirubin 1.3 AST 43 ALT 28 Alkaline Phosphatase 289 H Total Protein 7.2 Albumin 3.5 Globulin 3.7 Albumin/Globulin Ratio 0.9 L Urine Color Urine Appearance Urine pH Ur Specific [place] Urine Protein Urine Glucose (UA) Urine Ketones Urine Blood Urine Nitrate Urine Bilirubin Urine Urobilinogen Ur Leukocyte Esterase Urine RBC Urine WBC Urine Other 04/02/17 08:05 WBC RBC Hgb Hct MCV MCH MCHC RDW Plt Count MPV Gran % Lymph % (Auto) [place] % (Auto) Eos % (Auto) Baso % (Auto) Gran # Lymph # [place] # Eos # Baso # PT INR Sodium Potassium Chloride Carbon Dioxide Anion Gap BUN Creatinine Est GFR ( Amer) Est GFR (Non-Af Amer) Random Glucose Calcium Total Bilirubin AST ALT Alkaline Phosphatase Total Protein Albumin Globulin Albumin/Globulin Ratio Urine Color Yellow Urine Appearance Sl cloudy Urine pH 6.0 Ur Specific [place] >= 1.030 Urine Protein 100 H Urine Glucose (UA) Negative Urine Ketones Trace H Urine Blood Negative Urine Nitrate Negative Urine Bilirubin Small H Urine Urobilinogen 1.0 H Ur Leukocyte Esterase Negative Urine RBC 0 - 2 Urine WBC 0 - 2 Urine Other Mucus Assessment & Plan - Assessment and Plan (Free Text) Assessment: 56 year old male admitted with nausea, vomiting, URQ tenderness, leukocytosis, elevated LFTS's,amylase and lipase. CT scan showed increased size of pancreatic head mass, liver metastasis. The patient is alert oriented, pleasant. States he is feeling much btter than he was yeterday. He feels that he became overheated and dehydrated which caused him to have nabs and vomiting. He denies pain at present. States he does have early satiety and has been loosing weight over the past few weeks. Patent recently diagnosed with pancreatic cancer(01/24/17). He is aware of his diagnosis but states he has not been given prognosis. He was recently seen at [facility] and is awaiting their recommendation for treatment. He claims that they mentioned the possibility of surgery( Whipple procedure). Previous documentation by oncology states that patient is aware of liver metastasis. Patient is very guarded when discussing his disease. States that he isn't sure of what will be done until hears back [place]. He states that he is willing to try whatever options are offered him. Option for advance care planning introduced. I explained that it would allow him to make decisions about his care in advance. I explained that although hopeful for a good outcome it is always better to have directives in place, especially if he becomes incapable of doing so in the future. Patient feels it is "way to soon" to think about these things. He is still in denial of the seriousness of his condition. He states that he has a good support system with his siblings and girlfriend. Time spent in goals of care and advance care planning discussing , 30 minutes Plan: Patient is having difficulty accepting the gravity of his illness. Will continue to follow and provide support in decision making. Advance care planning
--- NOTE | 2017-04-02 11:00 | CT ---
PROCEDURE: CT Abdomen and Pelvis without intravenous contrast HISTORY: upper abdominal pain COMPARISON: 03/04/2017 TECHNIQUE: Without contrast.. Contrast Dose: Radiation dose: Total exam DLP = 274 mGy-cm. This CT exam was performed using one or more of the following dose reduction techniques: Automated exposure control, adjustment of the mA and/or kV according to patient size, and/or use of iterative reconstruction technique. FINDINGS: LOWER THORAX: Unremarkable. LIVER: Multiple metastatic lesions are seen in the liver. These appear to of increased in size since the previous exam GALLBLADDER AND BILE DUCTS: There is a stent in the common bile duct. There is air in the biliary tree. There is also some air in the gallbladder. PANCREAS: Mass in the pancreatic head poorly defined on this nonenhanced study SPLEEN: Unremarkable. ADRENALS: Unremarkable. No mass. KIDNEYS AND URETERS: Unremarkable. No hydronephrosis. No solid mass. VASCULATURE: Unremarkable. No aortic aneurysm. BOWEL: Unremarkable. No obstruction. No gross mural thickening. APPENDIX: Unremarkable. Normal appendix. PERITONEUM: Unremarkable. No free fluid. No free air. LYMPH NODES: Unremarkable. No enlarged lymph nodes. BLADDER: Unremarkable. REPRODUCTIVE: Unremarkable. BONES: No acute fracture. OTHER FINDINGS: None. IMPRESSION: Progressive metastatic disease to the liver. Mass in the pancreatic head. Stent in common bile duct No acute intra-abdominal findings
[2017-04-02] MEDS ORDERED: oxyCODONE 5 mg Immediate Release Tab PO PRN (13:00)
[2017-04-02] MEDS ORDERED: levoFLOXacin 750 MG TAB PO SCH (13:45)
--- NOTE | 2017-04-02 14:38 | CP.PCM.CON ---
<Angelia Case - Last Filed: 04/02/17 15:01> History of Present Illness - History of Present Illness History of Present Illness: CC: vomiting 56 year old male with past medical history of stage 4 adenocarcinoma of pancreas diagnosed in 01/2017 presented to hospital for intractable vomiting. Patient states that 2 days ago, he was outside in hot weather and vomited once NBNB. Yesterday, he was again in the hot weather and vomited 2 times NBNB. When he was fluid resuscitated in ED, patient states that he felt much better and has not had any more episodes of vomiting. CT of abd/pelvis in ED showed increased liver mets and pancreatic mass. Patient was recently discharged form hospital (03/10/17) after being admitted for obstructive jaundice and klebsiella bacteremia. During that hospital stay, patient underwent ERCP (03/05/17) with plastic CBD stent replaced with metal stent. Patient was also noted to have liver lesion seen on CT scan. CT guided liver biopsy (03/06/17) showed acute cholangitis and negative metastasis. Patient was discharged with instructions to follow up with heme/onc, Dr. Small. Patient is currently in the process of getting a second opinion from [facility]. Today, patient denies having any F/C, N/V/D/C, CP, SOB. Patient does c/o of occasional epigastric pain with no radiation. 12 point ROS are negative except for the above mentioned. PMHx: stated above Past surgical history: None Family history: Father Colon CA Social history: 1/2ppd x 25 years, denies alcohol, and illicit drug use. Lives at home with family, and 3 kids 19, 12, and 5. Allergies: NKDA Meds: None, was finishing course of levaquin Past Patient History - Past Medical History & Family History Past Medical History?: No - Past Social History Smoking Status: Heavy Smoker > 10 Cigarettes Daily - CARDIAC Hx Pacemaker: No - PULMONARY Hx Respiratory Disorders: No - NEUROLOGICAL Hx Neurological Disorder: No - HEENT Hx HEENT Problems: No - RENAL Hx Chronic Kidney Disease: No - ENDOCRINE/METABOLIC Hx Endocrine Disorders: No - HEMATOLOGICAL/ONCOLOGICAL Hx Blood Disorders: No Hx AIDS: No Hx Human Immunodeficiency Virus (HIV): No - INTEGUMENTARY Hx Dermatological Problems: Yes (jaundaced) - MUSCULOSKELETAL/RHEUMATOLOGICAL Hx Falls: No - GASTROINTESTINAL Hx Gastrointestinal Disorders: Yes Other/Comment: eus/egd/ercp duodenitis/ dilated cbd/ cbd stricture/ pancreatic mass/ 01/29/2017 - GENITOURINARY/GYNECOLOGICAL Hx Genitourinary Disorders: No - PSYCHIATRIC Hx Emotional Abuse: No Hx Physical Abuse: No Hx Substance Use: No - SURGICAL HISTORY Other/Comment: biliary stent 01/29/17 - ANESTHESIA Hx Anesthesia Reactions: No Hx Malignant Hyperthermia: No Meds Allergies/Adverse Reactions: Allergies Allergy/AdvReac Type Severity Reaction Status Date / Time No Known Allergies Allergy Verified 03/04/17 13:28 - Medications Medications: Current Medications Acetaminophen (Tylenol 325mg Tab) 650 mg PO Q6H PRN PRN Reason: Fever >100.4 F Docusate Sodium (Colace) 100 mg PO DAILY [facility] Last Admin: 04/02/17 10:07 Dose: 100 mg Enoxaparin Sodium (Lovenox) 40 mg SC DAILY [facility] PRN Reason: Protocol Last Admin: 04/02/17 10:07 Dose: 40 mg Famotidine (Pepcid 20mg/50ml Premix) 20 mg in 50 mls @ 100 mls/hr IV Q12 [facility] Last Admin: 04/02/17 10:06 Dose: 100 mls/hr Sodium Chloride (Sodium Chloride 0.9%) 1,000 mls @ 125 mls/hr IV .Q8H [facility] Last Admin: 04/02/17 12:06 Dose: 125 mls/hr Insulin Human Lispro (Humalog) 0 units SC ACHS [facility] PRN Reason: Protocol Last Admin: 04/02/17 11:30 Dose: Not Given Ketorolac Tromethamine (Toradol) 15 mg IVP Q6H PRN PRN Reason: Pain, moderate (4-7) Stop: 04/04/17 01:48 Last Admin: 04/02/17 08:36 Dose: 15 mg Levofloxacin (Levaquin) 750 mg PO DAILY [facility] Morphine Sulfate (Morphine) 2 mg IVP Q4H PRN PRN Reason: Pain, severe (8-10) Ondansetron HCl (Zofran Inj) 4 mg IVP Q6H PRN PRN Reason: Nausea/Vomiting Oxycodone HCl (Oxycodone Immediate Release Tab) 5 mg PO Q6H PRN PRN Reason: Pain, moderate (4-7) Last Admin: 04/02/17 13:20 Dose: 5 mg Physical Exam - Constitutional Appears: Non-toxic, No Acute Distress - Head Exam Head Exam: ATRAUMATIC - Eye Exam Eye Exam: EOMI - ENT Exam ENT Exam: Mucous Membranes Moist - Respiratory Exam Respiratory Exam: Clear to Auscultation Bilateral. absent: Accessory Muscle Use , Rales, Rhonchi, Wheezes, Respiratory Distress - Cardiovascular Exam Cardiovascular Exam: REGULAR RHYTHM, +S1, +S2. absent: Diastolic murmur, Gallop , Rubs, Systolic Murmur - GI/Abdominal Exam GI & Abdominal Exam: Normal Bowel Sounds, Soft. absent: Distended, Guarding, Organomegaly, Rebound, Rigid, Tenderness - Extremities Exam Extremities exam: Negative for: pedal edema, tenderness - Neurological Exam Neurological exam: Alert, Oriented x3 - Psychiatric Exam Psychiatric exam: Normal Affect, Normal Mood - Skin Skin Exam: Dry, Intact, Normal Color, Warm Results - Vital Signs Recent Vital Signs: Last Vital Signs Temp 98.2 F 04/02/17 08:26 Pulse 79 04/02/17 08:26 Resp 20 04/02/17 08:26 BP 147/91 H 04/02/17 08:26 Pulse Ox 99 04/02/17 08:26 - Labs Result Diagrams: 04/02/17 07:30 04/02/17 08:00 Labs: Laboratory Results - last 24 hr 04/02/17 04/02/17 04/02/17 07:30 08:00 08:00 WBC 11.4 H RBC 3.92 Hgb 11.3 L Hct 33.8 L MCV 86.2 MCH 28.8 MCHC 33.4 RDW 15.3 H Plt Count 495 H MPV 9.2 Gran % 68.2 H Lymph % (Auto) 20.4 L [place] % (Auto) 7.9 H Eos % (Auto) 3.3 Baso % (Auto) 0.2 Gran # 7.74 H Lymph # 2.3 [place] # 0.9 H Eos # 0.4 Baso # 0.02 PT 16.9 H INR 1.56 H Sodium 139 Potassium 3.3 L Chloride 103 Carbon Dioxide 28 Anion Gap 11 BUN 21 Creatinine 0.8 Est GFR ( Amer) > 60 Est GFR (Non-Af Amer) > 60 Random Glucose 98 Calcium 9.1 Total Bilirubin 1.3 AST 43 ALT 28 Alkaline Phosphatase 289 H Total Protein 7.2 Albumin 3.5 Globulin 3.7 Albumin/Globulin Ratio 0.9 L Urine Color Urine Appearance Urine pH Ur Specific [place] Urine Protein Urine Glucose (UA) Urine Ketones Urine Blood Urine Nitrate Urine Bilirubin Urine Urobilinogen Ur Leukocyte Esterase Urine RBC Urine WBC Urine Other 04/02/17 08:05 WBC RBC Hgb Hct MCV MCH MCHC RDW Plt Count MPV Gran % Lymph % (Auto) [place] % (Auto) Eos % (Auto) Baso % (Auto) Gran # Lymph # [place] # Eos # Baso # PT INR Sodium Potassium Chloride Carbon Dioxide Anion Gap BUN Creatinine Est GFR ( Amer) Est GFR (Non-Af Amer) Random Glucose Calcium Total Bilirubin AST ALT Alkaline Phosphatase Total Protein Albumin Globulin Albumin/Globulin Ratio Urine Color Yellow Urine Appearance Sl cloudy Urine pH 6.0 Ur Specific [place] >= 1.030 Urine Protein 100 H Urine Glucose (UA) Negative Urine Ketones Trace H Urine Blood Negative Urine Nitrate Negative Urine Bilirubin Small H Urine Urobilinogen 1.0 H Ur Leukocyte Esterase Negative Urine RBC 0 - 2 Urine WBC 0 - 2 Urine Other Mucus Assessment & Plan - Assessment and Plan (Free Text) Assessment: 56 year old male with past medical history of stage 4 adenocarcinoma of pancreas with CBD metal stent placed is admitted for intractable vomiting. On admission, CT abd/pelvis showed increased liver mets. Patient was also noted to have elevated amylase and lipase unchanged from previous visit in January. Liver enzymes are WNL. Adenocarcinoma of pancreas stage 4 - Recommend following up with Dr. Small upon discharge. Patient is also in the process of getting second opinion - Pain management Liver lesions - After discussing case with Dr. Sequeira, it is recommended that patient have a triple phase CT of liver due to worsening CT findings on CT yesterday. If increase in lesions then recommended repeat liver biopsy to rule out metastasis. This is explained to patient but patient refused to have any imaging in the hospital. Patient insists upon following up with [facility] for second opinion and having imaging (liver CT or MRI) done through that facility. Case is discussed with attending, Dr. Ugalde - Date & Time Date: 04/02/17 Time: 14:39 <Berlin Ugalde MD - Last Filed: 04/02/17 18:29> Results - Vital Signs Recent Vital Signs: Last Vital Signs Temp 98 F 04/02/17 16:00 Pulse 87 04/02/17 16:00 Resp 20 04/02/17 16:00 BP 141/92 H 04/02/17 16:00 Pulse Ox 100 04/02/17 16:00 - Labs Result Diagrams: 04/02/17 07:30 04/02/17 08:00 Labs: Laboratory Results - last 24 hr 04/02/17 04/02/17 04/02/17 07:30 08:00 08:00 WBC 11.4 H RBC 3.92 Hgb 11.3 L Hct 33.8 L MCV 86.2 MCH 28.8 MCHC 33.4 RDW 15.3 H Plt Count 495 H MPV 9.2 Gran % 68.2 H Lymph % (Auto) 20.4 L [place] % (Auto) 7.9 H Eos % (Auto) 3.3 Baso % (Auto) 0.2 Gran # 7.74 H Lymph # 2.3 [place] # 0.9 H Eos # 0.4 Baso # 0.02 PT 16.9 H INR 1.56 H Sodium 139 Potassium 3.3 L Chloride 103 Carbon Dioxide 28 Anion Gap 11 BUN 21 Creatinine 0.8 Est GFR ( Amer) > 60 Est GFR (Non-Af Amer) > 60 POC Glucose (mg/dL) Random Glucose 98 Calcium 9.1 Total Bilirubin 1.3 AST 43 ALT 28 Alkaline Phosphatase 289 H Total Protein 7.2 Albumin 3.5 Globulin 3.7 Albumin/Globulin Ratio 0.9 L Urine Color Urine Appearance Urine pH Ur Specific [place] Urine Protein Urine Glucose (UA) Urine Ketones Urine Blood Urine Nitrate Urine Bilirubin Urine Urobilinogen Ur Leukocyte Esterase Urine RBC Urine WBC Urine Other 04/02/17 04/02/17 08:05 16:08 WBC RBC Hgb Hct MCV MCH MCHC RDW Plt Count MPV Gran % Lymph % (Auto) [place] % (Auto) Eos % (Auto) Baso % (Auto) Gran # Lymph # [place] # Eos # Baso # PT INR Sodium Potassium Chloride Carbon Dioxide Anion Gap BUN Creatinine Est GFR ( Amer) Est GFR (Non-Af Amer) POC Glucose (mg/dL) 124 H Random Glucose Calcium Total Bilirubin AST ALT Alkaline Phosphatase Total Protein Albumin Globulin Albumin/Globulin Ratio Urine Color Yellow Urine Appearance Sl cloudy Urine pH 6.0 Ur Specific [place] >= 1.030 Urine Protein 100 H Urine Glucose (UA) Negative Urine Ketones Trace H Urine Blood Negative Urine Nitrate Negative Urine Bilirubin Small H Urine Urobilinogen 1.0 H Ur Leukocyte Esterase Negative Urine RBC 0 - 2 Urine WBC 0 - 2 Urine Other Mucus Attending/Attestation - Attestation I have personally seen and examined this patient.: Yes I have fully participated in the care of the patient.: Yes I have reviewed all pertinent clinical information: Yes Notes (Text): 04/02/17 18:27 Patient seen with resident and fellow- This is a 56 year old male with past medical history of stage 4 adenocarcinoma of pancreas with CBD metal stent placed is admitted for intractable vomiting. On admission, CT abd/pelvis showed increased liver mets. Patient was also noted to have elevated amylase and lipase unchanged from previous visit in January. Liver enzymes are WNL. Recommend following up with Dr. Small upon discharge. Patient is also in the process of getting second opinion. It was recommended that patient have a triple phase CT of liver due to worsening CT findings on CT yesterday. If increase in lesions then recommended repeat liver biopsy to rule out metastasis. This is explained to patient but patient refused to have any imaging in the hospital. Patient insists upon following up with [facility] for second opinion and having imaging (liver CT or MRI) done through that facility.
--- NOTE | 2017-04-02 16:06 | CARD ---
APPROVED REPORT EKG Measurement Heart [id number] <Conclusion> Normal sinus rhythm Possible Left atrial enlargement Nonspecific ST and T wave abnormality Prolonged QT Abnormal ECG
--- NOTE | 2017-04-02 17:23 | CP.PCM.DIS ---
<BarneySemaj [email or web address] - Last Filed: 04/02/17 17:19> Provider - Provider Date of Admission: 04/02/17 01:23 Attending physician: Sheila Lipscomb MD Consults: XNEIA Smith Time Spent in preparation of Discharge (in minutes): 33 Diagnosis - Discharge Diagnosis (1) Pancreatic cancer Status: Acute Hospital Course - Lab Results Lab Results: Most Recent Lab Values WBC 11.4 10^3/ul (4.5-11.0) H 04/02/17 07:30 RBC 3.92 10^6/uL (3.5-6.1) 04/02/17 07:30 Hgb 11.3 gm/dL (14.0-18.0) L 04/02/17 07:30 Hct 33.8 % (42.0-52.0) L 04/02/17 07:30 MCV 86.2 fL (80.0-105.0) 04/02/17 07:30 MCH 28.8 pg (25.0-35.0) 04/02/17 07:30 MCHC 33.4 g/dl (31.0-37.0) 04/02/17 07:30 RDW 15.3 % (11.5-14.5) H 04/02/17 07:30 Plt Count 495 10^3/uL (120.0-450.0) H 04/02/17 07:30 MPV 9.2 fl (7.0-11.0) 04/02/17 07:30 Gran % 68.2 % (50.0-68.0) H 04/02/17 07:30 Lymph % (Auto) 20.4 % (22.0-35.0) L 04/02/17 07:30 [place] % (Auto) 7.9 % (1.0-6.0) H 04/02/17 07:30 Eos % (Auto) 3.3 % (1.5-5.0) 04/02/17 07:30 Baso % (Auto) 0.2 % (0.0-3.0) 04/02/17 07:30 Gran # 7.74 (1.4-6.5) H 04/02/17 07:30 Lymph # 2.3 (1.2-3.4) 04/02/17 07:30 [place] # 0.9 (0.1-0.6) H 04/02/17 07:30 Eos # 0.4 (0.0-0.7) 04/02/17 07:30 Baso # 0.02 K/mm3 (0.0-2.0) 04/02/17 07:30 PT 16.9 Seconds (9.9-11.8) H 04/02/17 08:00 INR 1.56 (0.93-1.08) H 04/02/17 08:00 APTT 38.4 Seconds (23.7-30.8) H 04/01/17 20:30 Sodium 139 mmol/L (132-148) 04/02/17 08:00 Potassium 3.3 mmol/L (3.6-5.0) L 04/02/17 08:00 Chloride 103 mmol/L (95-110) 04/02/17 08:00 Carbon Dioxide 28 mmol/L (21-33) 04/02/17 08:00 Anion Gap 11 (10-20) 04/02/17 08:00 BUN 21 mg/dL (7-21) 04/02/17 08:00 Creatinine 0.8 mg/dL (0.5-1.4) 04/02/17 08:00 Est GFR ( Amer) > 60 04/02/17 08:00 Est GFR (Non-Af Amer) > 60 04/02/17 08:00 POC Glucose (mg/dL) 124 mg/dL (65-110) H 04/02/17 16:08 Random Glucose 98 mg/dL (70-110) 04/02/17 08:00 Calcium 9.1 mg/dL (8.4-10.5) 04/02/17 08:00 Total Bilirubin 1.3 mg/dL (0.2-1.3) 04/02/17 08:00 AST 43 U/L (15-59) 04/02/17 08:00 ALT 28 U/L (7-56) 04/02/17 08:00 Alkaline Phosphatase 289 U/L (38-133) H 04/02/17 08:00 Total Protein 7.2 g/dL (5.8-8.3) 04/02/17 08:00 Albumin 3.5 g/dL (3.0-4.8) 04/02/17 08:00 Globulin 3.7 gm/dL 04/02/17 08:00 Albumin/Globulin Ratio 0.9 (1.1-1.8) L 04/02/17 08:00 Amylase 128 U/L (35-125) H 04/01/17 20:30 Lipase 606 U/L (23-300) H 04/01/17 20:30 Urine Color Yellow (YELLOW) 04/02/17 08:05 Urine Appearance Sl cloudy (CLEAR) 04/02/17 08:05 Urine pH 6.0 (4.7-8.0) 04/02/17 08:05 Ur Specific [place] >= 1.030 (1.005-1.035) 04/02/17 08:05 Urine Protein 100 mg/dL (<30 mg/dL) H 04/02/17 08:05 Urine Glucose (UA) Negative mg/dL (NEGATIVE) 04/02/17 08:05 Urine Ketones Trace mg/dL (NEGATIVE) H 04/02/17 08:05 Urine Blood Negative (NEGATIVE) 04/02/17 08:05 Urine Nitrate Negative (NEGATIVE) 04/02/17 08:05 Urine Bilirubin Small (NEGATIVE) H 04/02/17 08:05 Urine Urobilinogen 1.0 E.U./dL (<1 E.U./dL) H 04/02/17 08:05 Ur Leukocyte Esterase Negative Humza/uL (NEGATIVE) 04/02/17 08:05 Urine RBC 0 - 2 /hpf (0-2) 04/02/17 08:05 Urine WBC 0 - 2 /hpf (0-6) 04/02/17 08:05 Urine Other Mucus 04/02/17 08:05 - Hospital Course Hospital Course: This patient is a 56yo M w/ a PMHx of Stage 4 Pancreatic CA followed by Dr. Small; patient has very poor insight into this disease and its poor outcome. When questioned what his prognosis was, the patient said "I don't know, I was just diagnosed one month ago". He said he went to [place] center [place] second opinion as well; states he was offered a whipple procedure as well as palliative chemo. He states he vomited twice, NBNB, and has felt generally anorexic for the past month. Denies new foods or travel or sick contacts. Denies fevers/chills, DENNIS, CP, SOB, abdominal pain, diarrhea, dysuria/freq/urg, or lower extremity pain/swelling. The patient states that he currently wants everything done for him in terms of plan of care (intubation/chest compressions/ CPR). The patient was admitted for further evaluation. GI was consulted. CT abd revealed multiple hepatic lesions concerning for metastasis. CT liver was recommended. GI saw the patient and would like the patient to f/u as an outpatient. Patient agrees to f/u with GI and to obtain CT liver to r/o hepatic mets. He is discharged home with a 5 day course of Tramadol and Zosyn. Discharge Exam - Head Exam Head Exam: ATRAUMATIC - Eye Exam Eye Exam: EOMI, PERRL - Respiratory Exam Respiratory Exam: Clear to PA & Lateral - Cardiovascular Exam Cardiovascular Exam: REGULAR RHYTHM - GI/Abdominal Exam GI & Abdominal Exam: Normal Bowel Sounds, Unremarkable - Back Exam Back exam: absent: rash noted - Neurological Exam Neurological exam: Alert, CN II-XII Intact, Oriented x3 - Psychiatric Exam Psychiatric exam: Normal Affect, Normal Mood - Skin Skin Exam: Dry, Warm Discharge Plan - Discharge Medications Prescriptions: Ondansetron HCl [Zofran] 4 mg PO Q6H PRN #30 tablet PRN Reason: nausea traMADol [Ultram] 50 mg PO TID #15 tab - Follow Up Plan Condition: STABLE Disposition: HOME/ ROUTINE Instructions: Pancreatic Cancer (DC), Pancreatic Cancer (GEN), Acute Nausea and Vomiting (DC), Abdominal Pain (ED) Additional Instructions: FOLLOW UP WITH YOUR DOCTOR WITHIN 1 WEEK. IF YOU EXPERIENCE WORSENING ABDOMINAL PAIN, GO TO THE ER. Please see Dr. Fabby jang the next week for further evaluation. You will need a CAT scan of your liver. <Deisi BARRON,Sheila - Last Filed: 04/03/17 16:27> Provider - Provider Date of Admission: 04/02/17 01:23 Attending physician: Sheila Lipscomb MD Hospital Course - Lab Results Lab Results: Micro Results 04/02/17 08:40 Blood-Venous Blood Culture - Preliminary NO GROWTH AFTER 24 HOURS 04/02/17 08:35 Blood-Venous Blood Culture - Preliminary NO GROWTH AFTER 24 HOURS Most Recent Lab Values WBC 11.4 10^3/ul (4.5-11.0) H 04/02/17 07:30 RBC 3.92 10^6/uL (3.5-6.1) 04/02/17 07:30 Hgb 11.3 gm/dL (14.0-18.0) L 04/02/17 07:30 Hct 33.8 % (42.0-52.0) L 04/02/17 07:30 MCV 86.2 fL (80.0-105.0) 04/02/17 07:30 MCH 28.8 pg (25.0-35.0) 04/02/17 07:30 MCHC 33.4 g/dl (31.0-37.0) 04/02/17 07:30 RDW 15.3 % (11.5-14.5) H 04/02/17 07:30 Plt Count 495 10^3/uL (120.0-450.0) H 04/02/17 07:30 MPV 9.2 fl (7.0-11.0) 04/02/17 07:30 Gran % 68.2 % (50.0-68.0) H 04/02/17 07:30 Lymph % (Auto) 20.4 % (22.0-35.0) L 04/02/17 07:30 [place] % (Auto) 7.9 % (1.0-6.0) H 04/02/17 07:30 Eos % (Auto) 3.3 % (1.5-5.0) 04/02/17 07:30 Baso % (Auto) 0.2 % (0.0-3.0) 04/02/17 07:30 Gran # 7.74 (1.4-6.5) H 04/02/17 07:30 Lymph # 2.3 (1.2-3.4) 04/02/17 07:30 [place] # 0.9 (0.1-0.6) H 04/02/17 07:30 Eos # 0.4 (0.0-0.7) 04/02/17 07:30 Baso # 0.02 K/mm3 (0.0-2.0) 04/02/17 07:30 PT 16.9 Seconds (9.9-11.8) H 04/02/17 08:00 INR 1.56 (0.93-1.08) H 04/02/17 08:00 APTT 38.4 Seconds (23.7-30.8) H 04/01/17 20:30 Sodium 139 mmol/L (132-148) 04/02/17 08:00 Potassium 3.3 mmol/L (3.6-5.0) L 04/02/17 08:00 Chloride 103 mmol/L (95-110) 04/02/17 08:00 Carbon Dioxide 28 mmol/L (21-33) 04/02/17 08:00 Anion Gap 11 (10-20) 04/02/17 08:00 BUN 21 mg/dL (7-21) 04/02/17 08:00 Creatinine 0.8 mg/dL (0.5-1.4) 04/02/17 08:00 Est GFR ( Amer) > 60 04/02/17 08:00 Est GFR (Non-Af Amer) > 60 04/02/17 08:00 POC Glucose (mg/dL) 124 mg/dL (65-110) H 04/02/17 16:08 Random Glucose 98 mg/dL (70-110) 04/02/17 08:00 Calcium 9.1 mg/dL (8.4-10.5) 04/02/17 08:00 Total Bilirubin 1.3 mg/dL (0.2-1.3) 04/02/17 08:00 AST 43 U/L (15-59) 04/02/17 08:00 ALT 28 U/L (7-56) 04/02/17 08:00 Alkaline Phosphatase 289 U/L (38-133) H 04/02/17 08:00 Total Protein 7.2 g/dL (5.8-8.3) 04/02/17 08:00 Albumin 3.5 g/dL (3.0-4.8) 04/02/17 08:00 Globulin 3.7 gm/dL 04/02/17 08:00 Albumin/Globulin Ratio 0.9 (1.1-1.8) L 04/02/17 08:00 Amylase 128 U/L (35-125) H 04/01/17 20:30 Lipase 606 U/L (23-300) H 04/01/17 20:30 Urine Color Yellow (YELLOW) 04/02/17 08:05 Urine Appearance Sl cloudy (CLEAR) 04/02/17 08:05 Urine pH 6.0 (4.7-8.0) 04/02/17 08:05 Ur Specific [place] >= 1.030 (1.005-1.035) 04/02/17 08:05 Urine Protein 100 mg/dL (<30 mg/dL) H 04/02/17 08:05 Urine Glucose (UA) Negative mg/dL (NEGATIVE) 04/02/17 08:05 Urine Ketones Trace mg/dL (NEGATIVE) H 04/02/17 08:05 Urine Blood Negative (NEGATIVE) 04/02/17 08:05 Urine Nitrate Negative (NEGATIVE) 04/02/17 08:05 Urine Bilirubin Small (NEGATIVE) H 04/02/17 08:05 Urine Urobilinogen 1.0 E.U./dL (<1 E.U./dL) H 04/02/17 08:05 Ur Leukocyte Esterase Negative Humza/uL (NEGATIVE) 04/02/17 08:05 Urine RBC 0 - 2 /hpf (0-2) 04/02/17 08:05 Urine WBC 0 - 2 /hpf (0-6) 04/02/17 08:05 Urine Other Mucus 04/02/17 08:05 Attending/Attestation - Attestation I have personally seen and examined this patient.: Yes I have fully participated in the care of the patient.: Yes I have reviewed all pertinent clinical information, including history, physical exam and plan: Yes Notes (Text): 04/03/17 16:21 Patient was seen and examined with biomedical field service engineer .Agreed with resident assessment and plan. 56 M with H/O , pancreatic adenocarcinoma SP ERCP 2 times with stent placement, recently was also treated for gram negative K.Pneumonia bacteremia, , also had liver biopsy at that time which was negative for mailignancy, was admitted with intractable abdominal pain , nausea and vomiting.Patient symptoms are resolved, he is tolerating diet.He was evaluated by GI, due to abnormal Liver finding, CT liver triple phase was recommended, patient does not want to stay in the hospital for this and want to have it as out patient.He is also following with an other Oncologist for second opinion regarding his treatment option..The issue was discussed with him in detail. Management plan was discussed in detail with patient Education was provided.
[2017-04-02 18:10] VITALS: BP 141/92; PULSE 87; TEMP 98; O2SAT 100
== END 2017-04-02 18:08 | disposition home or self-care (01) ==
LOC: ED 20:27 → ERH 04-02 01:23 → 3RNO 04-02 04:44
PROVIDERS: ADMIT Internal Medicine; ATTEND Internal Medicine
DX: C25.9 Malignant neoplasm of pancreas, unspecified (principal); C78.7 Secondary malignant neoplasm of liver and intrahepatic bile duct; E87.6 Hypokalemia; D64.9 Anemia, unspecified; R73.9 Hyperglycemia, unspecified; R74.8 Abnormal levels of other serum enzymes; R63.0 Anorexia; Z87.891 Personal history of nicotine dependence; Z80.0 Family history of malignant neoplasm of digestive organs
CPT/HCPCS: 36415; 74176; 80053; 81001; 82150; 82948; 83690; 85025; 85610; 85730; 87040; 87086; 93005; 96361; 96365; 96372; 96375; 96376; 99285; G0378; J1650; J1885; J2270; J2405; J7040